=== PATIENT | male | born 1960 | race Caucasian/White ===

== ENCOUNTER 2018-02-03 11:35 | Inpatient (IN) | payer OTHER ==
[~2018-02-03] VITALS: Ht 167.6 cm; Wt 113.4 kg
[2018-02-03] VITALS (11 sets, daily range): BP systolic 121–167; BP diastolic 66–91
--- NOTE | 2018-02-03 11:56 | RAD ---
EXAM: CT Head without IV contrast CLINICAL HISTORY: LEFT SIDE WEAKNESS, FACIAL DROOP LAST NIGHT, SLURRED SPEECH TODAY. COMPARISON: None. TECHNIQUE: Routine CT of the head without contrast. Soft tissues and bone windows were reviewed. PQRS compliance statement - One or more of the following individualized dose reduction techniques were utilized for this study: 1. Automated exposure control 2. Adjustment of the mA and/or kV according to patient size 3. Use of iterative reconstruction technique FINDINGS: Intraparenchymal hemorrhage is seen within the right basal ganglia with mild associated edema. No definite mass effect or midline shift. Melvin-white differentiation is maintained with no evidence of edema. There is no mass effect or shift of the intracranial structures. The ventricles, basilar cisterns and cortical sulci are normal in size and configuration for the patients stated age. The cerebellum and brainstem are unremarkable. The calvarium demonstrates no evidence of fracture or focal lesion. There is normal aeration of the visualized paranasal sinuses and mastoid air cells. The visualized portions of the orbits are normal. Atherosclerotic calcifications of the intracranial internal carotid and vertebral arteries is seen. IMPRESSION: Intraparenchymal hemorrhage of the right basal ganglia with mild associated edema. Findings of intraparenchymal hemorrhage discussed with Dr. Rothman at 11:50 AM, 02/03/2018. Electronically signed by: Elmo To MD (02/03/2018 11:52 AM) [facility]
[2018-02-03] MEDS ORDERED: LABETALOL 20 MG/4 ML DISP.SYRIN. IVP ONE (12:15)
[2018-02-03 12:34] LABS: BASO # 0.1 x10^3/uL (0.0-0.2); BASO % 1 % (0-3); EOS # 0.1 x10^3/uL (0.0-0.7); EOS % 1 % (0-3); HEMOGLOBIN 14.2 g/dL (13.0-17.5); LYMPH # 1.9 x10^3/uL (1.0-4.8); LYMPH % 14 % (24-48); MEAN CORPUSCULAR HEMOGLOBIN 31 pg (25-35); MEAN CORPUSCULAR HGB CONC 35 g/dL (31-37); MEAN CORPUSCULAR VOLUME 88 fL (79-100); MONO # 1.1 x10^3/uL (0.0-1.1); MONO % 8 % (0-9); NEUT # 10.6 x10^3uL (1.8-7.7); NEUT % 77 % (31-73); PLATELET COUNT 303 x10^3/uL (140-400); RED BLOOD COUNT 4.67 x10^6/uL (4.30-5.70); RED CELL DISTRIBUTION WIDTH 14.3 % (11.5-14.5); WHITE BLOOD COUNT 13.8 x10^3/uL (4.0-11.0)
[2018-02-03 12:45] LABS: CALCIUM 10.4 mg/dL (8.5-10.1); CREATININE 1.6 mg/dL (0.7-1.3); GFR 44.9; POTASSIUM 3.9 mmol/L (3.5-5.1)
[2018-02-03 12:50] LABS: ALBUMIN 3.8 g/dL (3.4-5.0); ALBUMIN/GLOBULIN RATIO 0.9 (1.0-1.7); MAGNESIUM 1.8 mg/dL (1.8-2.4); PROTHROMBIN TIME PATIENT 13.4 SEC (11.7-14.0); TOTAL BILIRUBIN 0.6 mg/dL (0.2-1.0); TOTAL PROTEIN 8.1 g/dL (6.4-8.2)
--- NOTE | 2018-02-03 13:07 | PDOC1 ---
History and Physical Date of Admission Date of Admission DATE: 02/03/18 TIME: 13:06 Identification/Chief Complaint Chief Complaint ssen in er bed 3 57 year old male who presents with complaint of left-sided weakness and headache. Patient states that initially he had a mild headache last night and during the night he had fallen a couple of times because he was a bit off balance. this morning he was noticing that his speech was a little bit off but he still went into work. He states that while he was at work he took a nap for short period of time and when he awoke from nap coworkers noticed that he was significantly different with facial droop, slurred speech, was having weakness to his left arm. still complains of mild headache. He denies any chest pain or shortness of breath. 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 [employer] Rheumatologic: No pertinent hx Infectious disease: No pertinent hx ENT: No pertinent hx Endocrine: No pertinent hx Social History Smoke: No ALCOHOL: none Drugs: None Current Medications Current Medications Current Medications Labetalol HCl (Normodyne Iv Push) 20 mg 1X ONCE IVP Last administered on 02/03at 12:26; Start 02/03/18 at 12:15; Stop 02/03/18 at 12:16; Status DC Nicardipine HCl 50 mg/Sodium Chloride 270 ml @ 27 mls/hr CONT PRN IV SEE I/O RECORD Last administered on 02/03/18at 12:45; Start 02/03/18 at 12:30 Allergies Allergies: Coded Allergies: No Known Drug Allergies (Unverified , 02/03/18) ROS Review of System Review of Systems Review of Systems Constitutional: Denies fever or chills [] Eyes: Denies change in visual acuity, redness, or eye pain [] Respiratory: Denies cough or shortness of breath [] Cardiovascular: No additional information not addressed in HPI [] GI: Denies abdominal pain, nausea, vomiting or diarrhea [] Integument: Denies rash or skin lesions [] Neurologic: [place] of headache, slurred speech and left-sided weakness. Denies sensory changes [] 14 pt systems were reviewed and found to be within normal limits, except as documented HEENT: YES: [place] ALLERGY AND IMMUNOLOGY: No: Hives, Insect Bite Sensitivity, Itchy/Watery Eyes, Nasal Congestion, Post Nasal Drip, Seasonal Allergies, Other Hematological and Lymphatic: No: Bleeding Problems, Blood Clots, Blood Transfusions, Brusing, Night Sweats, Pallor, Swollen Lymph Nodes, Other Cardiovascular: No Chest Pain, No Palpitations, No Orthopnea, No Paroxysmal Noc. Dyspnea, No Edema, No Lt Headedness, No Other Physical Exam Physical Exam Physical Exam Physical Exam Constitutional: Well developed, well nourished, mild acute distress, non-toxic appearance. [] HENT: Normocephalic, atraumatic, bilateral external ears normal, oropharynx moist, no oral exudates, nose normal. [] Eyes: PERRLA, EOMI, conjunctiva normal, no discharge. [] Neck: Normal range of motion, no tenderness, supple, no stridor. [] Cardiovascular: Regular rate and rhythm [] Lungs & Thorax: Bilateral breath sounds clear to auscultation [] Abdomen: Bowel sounds normal, soft, no tenderness. [] Skin: Warm, dry, no erythema, no rash. [] Extremities: No tenderness, no cyanosis, no clubbing, ROM intact, no edema. [] Neurologic: Alert and oriented X 3. 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 Patient is able to maintain against gravity but no further. a left-sided pronator drift. Lower extremities demonstrate 5 out of 5 strength symmetrically. [] General: Alert, Oriented X3, Cooperative, mild distress HEENT: Atraumatic, PERRLA Lungs: Clear to auscultation Heart: S1S2 Breasts: Not examined Rectal Exam: not examined PELVIC: Examination not indicated Extremities: No clubbing, No cyanosis, No edema Skin: No breakdown Neuro: Normal speech Psych/Mental Status: Mental status NL, Mood NL Vitals Vitals Vital Signs Date Time Temp Pulse Resp B/P (MAP) Pulse Ox O2 Delivery O2 Flow Rate FiO2 02/03/18 12:26 80 237/115 02/03/18 11:58 98.4 20 98 Room Air 98.4 Labs Labs Laboratory Tests Test 02/03/18 11:49 02/03/18 11:54 Glucose (Fingerstick) 108 mg/dL (70-99) White Blood Count 13.8 x10^3/uL (4.0-11.0) Red Blood Count 4.67 x10^6/uL (4.30-5.70) Hemoglobin 14.2 g/dL (13.0-17.5) Hematocrit 41.0 % (39.0-53.0) Mean Corpuscular Volume 88 fL (79-100) Mean Corpuscular Hemoglobin 31 pg (25-35) Mean Corpuscular Hemoglobin Concent 35 g/dL (31-37) Red Cell Distribution Width 14.3 % (11.5-14.5) Platelet Count 303 x10^3/uL (140-400) Neutrophils (%) (Auto) 77 % (31-73) Lymphocytes (%) (Auto) 14 % (24-48) Monocytes (%) (Auto) 8 % (0-9) Eosinophils (%) (Auto) 1 % (0-3) Basophils (%) (Auto) 1 % (0-3) Neutrophils # (Auto) 10.6 x10^3uL (1.8-7.7) Lymphocytes # (Auto) 1.9 x10^3/uL (1.0-4.8) Monocytes # (Auto) 1.1 x10^3/uL (0.0-1.1) Eosinophils # (Auto) 0.1 x10^3/uL (0.0-0.7) Basophils # (Auto) 0.1 x10^3/uL (0.0-0.2) Prothrombin Time 13.4 SEC (11.7-14.0) Prothromb Time International Ratio 1.1 (0.8-1.1) Activated Partial Thromboplast Time 29 SEC (24-38) Sodium Level 141 mmol/L (136-145) Potassium Level 3.9 mmol/L (3.5-5.1) Chloride Level 105 mmol/L (98-107) Carbon Dioxide Level 25 mmol/L (21-32) Anion Gap 11 (6-14) Blood Urea Nitrogen 16 mg/dL (8-26) Creatinine 1.6 mg/dL (0.7-1.3) Estimated GFR (Cockcroft-Gault) 44.9 BUN/Creatinine Ratio 10 (6-20) Glucose Level 118 mg/dL (70-99) Calcium Level 10.4 mg/dL (8.5-10.1) Magnesium Level 1.8 mg/dL (1.8-2.4) Total Bilirubin 0.6 mg/dL (0.2-1.0) Aspartate Amino Transf (AST/SGOT) 49 U/L (15-37) Alanine Aminotransferase (ALT/SGPT) 87 U/L (16-63) Alkaline Phosphatase 63 U/L (46-116) Troponin I Quantitative 0.018 ng/mL (0.000-0.055) Total Protein 8.1 g/dL (6.4-8.2) Albumin 3.8 g/dL (3.4-5.0) Albumin/Globulin Ratio 0.9 (1.0-1.7) Thyroid Stimulating Hormone (TSH) 15.636 uIU/mL (0.358-3.74) Ethyl Alcohol Level < 10 mg/dL (0-10) Laboratory Tests Test 02/03/18 11:49 02/03/18 11:54 Glucose (Fingerstick) 108 mg/dL (70-99) White Blood Count 13.8 x10^3/uL (4.0-11.0) Red Blood Count 4.67 x10^6/uL (4.30-5.70) Hemoglobin 14.2 g/dL (13.0-17.5) Hematocrit 41.0 % (39.0-53.0) Mean Corpuscular Volume 88 fL (79-100) Mean Corpuscular Hemoglobin 31 pg (25-35) Mean Corpuscular Hemoglobin Concent 35 g/dL (31-37) Red Cell Distribution Width 14.3 % (11.5-14.5) Platelet Count 303 x10^3/uL (140-400) Neutrophils (%) (Auto) 77 % (31-73) Lymphocytes (%) (Auto) 14 % (24-48) Monocytes (%) (Auto) 8 % (0-9) Eosinophils (%) (Auto) 1 % (0-3) Basophils (%) (Auto) 1 % (0-3) Neutrophils # (Auto) 10.6 x10^3uL (1.8-7.7) Lymphocytes # (Auto) 1.9 x10^3/uL (1.0-4.8) Monocytes # (Auto) 1.1 x10^3/uL (0.0-1.1) Eosinophils # (Auto) 0.1 x10^3/uL (0.0-0.7) Basophils # (Auto) 0.1 x10^3/uL (0.0-0.2) Prothrombin Time 13.4 SEC (11.7-14.0) Prothromb Time International Ratio 1.1 (0.8-1.1) Activated Partial Thromboplast Time 29 SEC (24-38) Sodium Level 141 mmol/L (136-145) Potassium Level 3.9 mmol/L (3.5-5.1) Chloride Level 105 mmol/L (98-107) Carbon Dioxide Level 25 mmol/L (21-32) Anion Gap 11 (6-14) Blood Urea Nitrogen 16 mg/dL (8-26) Creatinine 1.6 mg/dL (0.7-1.3) Estimated GFR (Cockcroft-Gault) 44.9 BUN/Creatinine Ratio 10 (6-20) Glucose Level 118 mg/dL (70-99) Calcium Level 10.4 mg/dL (8.5-10.1) Magnesium Level 1.8 mg/dL (1.8-2.4) Total Bilirubin 0.6 mg/dL (0.2-1.0) Aspartate Amino Transf (AST/SGOT) 49 U/L (15-37) Alanine Aminotransferase (ALT/SGPT) 87 U/L (16-63) Alkaline Phosphatase 63 U/L (46-116) Troponin I Quantitative 0.018 ng/mL (0.000-0.055) Total Protein 8.1 g/dL (6.4-8.2) Albumin 3.8 g/dL (3.4-5.0) Albumin/Globulin Ratio 0.9 (1.0-1.7) Thyroid Stimulating Hormone (TSH) 15.636 uIU/mL (0.358-3.74) Ethyl Alcohol Level < 10 mg/dL (0-10) Images Images COMPARISON: None. TECHNIQUE: Routine CT of the head without contrast. Soft tissues and bone windows were reviewed. PQRS compliance statement - One or more of the following individualized dose reduction techniques were utilized for this study: 1. Automated exposure control 2. Adjustment of the mA and/or kV according to patient size 3. Use of iterative reconstruction technique FINDINGS: Intraparenchymal hemorrhage is seen within the right basal ganglia with mild associated edema. No definite mass effect or midline shift. Melvin-white differentiation is maintained with no evidence of edema. There is no mass effect or shift of the intracranial structures. The ventricles, basilar cisterns and cortical sulci are normal in size and configuration for the patients stated age. The cerebellum and brainstem are unremarkable. The calvarium demonstrates no evidence of fracture or focal lesion. There is normal aeration of the visualized paranasal sinuses and mastoid air cells. The visualized portions of the orbits are normal. Atherosclerotic calcifications of the intracranial internal carotid and vertebral arteries is seen. IMPRESSION: Intraparenchymal hemorrhage of the right basal ganglia with mild associated edema. Findings of intraparenchymal hemorrhage discussed with Dr. Rothman at 11:50 AM, 02/03/2018. Electronically signed by: Elmo To MD (02/03/2018 11:52 AM) [facility] VTE Prophylaxis Ordered VTE Prophylaxis Devices: Yes VTE Pharmacological Prophylaxi: Contraindicated Assessment/Plan Assessment/Plan impression Intraparenchymal hemorrhage of the right basal ganglia with mild associated edema. hypertensive crisis headache morbid obesity possible JOSE plan admit icu bed neurosurgery consult neurology consult neurochecks q 2 hrs npo iv fluid support bp control PULM CONSULT RE JOSE 36 min cc time HECTOR MURDOCK MD Feb 03, 2018 13:07
--- NOTE | 2018-02-03 13:11 | PHYS DOC ---
Past Medical History Past Medical History: No Pertinent History Past Surgical History: No Surgical History Alcohol Use: None Drug Use: None Adult General Chief Complaint Chief Complaint: SLURRED SPEECH HPI HPI Patient is a 57 year old male who presents with complaint of left-sided weakness and headache. Patient states that initially he had a mild headache last night and during the night he had fallen a couple of times because he was a bit off balance. He states that this morning he was noticing that his speech was a little bit off but he still went into work. He states that while he was at work he took a nap for short period of time and when he awoke from nap coworkers noticed that he was significantly different with facial droop, slurred speech and he was having weakness to his left arm. Patient still complains of mild headache. He denies any chest pain or shortness of breath. He denies any nausea or vomiting. Review of Systems Review of Systems Constitutional: Denies fever or chills [] Eyes: Denies change in visual acuity, redness, or eye pain [] Respiratory: Denies cough or shortness of breath [] Cardiovascular: No additional information not addressed in HPI [] GI: Denies abdominal pain, nausea, vomiting or diarrhea [] Integument: Denies rash or skin lesions [] Neurologic: [place] of headache, slurred speech and left-sided weakness. Denies sensory changes [] All other systems were reviewed and found to be within normal limits, except as documented in this note. Current Medications Current Medications Current Medications Medications (Trade) Dose Ordered Sig/Teresa Start Time Stop Time Status Last Admin Dose Admin Labetalol HCl (Normodyne Iv Push) 20 mg 1X ONCE 02/03/18 12:15 02/03/18 12:16 DC 02/03/18 12:26 20 MG Nicardipine HCl 50 mg/Sodium Chloride 270 ml @ 27 mls/hr CONT PRN 02/03/18 12:30 02/03/18 12:45 27 MLS/HR Allergies Allergies Allergies Coded Allergies Type Severity Reaction Last Updated Verified No Known Drug Allergies 02/03/18 No Physical Exam Physical Exam Constitutional: Well developed, well nourished, no acute distress, non-toxic appearance. [] HENT: Normocephalic, atraumatic, bilateral external ears normal, oropharynx moist, no oral exudates, nose normal. [] Eyes: PERRLA, EOMI, conjunctiva normal, no discharge. [] Neck: Normal range of motion, no tenderness, supple, no stridor. [] Cardiovascular: Regular rate and rhythm [] Lungs & Thorax: Bilateral breath sounds clear to auscultation [] Abdomen: Bowel sounds normal, soft, no tenderness. [] Skin: Warm, dry, no erythema, no rash. [] Extremities: No tenderness, no cyanosis, no clubbing, ROM intact, no edema. [] Neurologic: Alert and oriented X 3. Cranial nerves II through XII are grossly intact with exception of cranial nerve VII deficit with left-sided facial droop and sparing for head. 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 Patient is able to maintain against gravity but no further. There is a left-sided pronator drift. Lower extremities demonstrate 5 out of 5 strength symmetrically. [] Current Patient Data Vital Signs Vital Signs Date Time Temp Pulse Resp B/P (MAP) Pulse Ox O2 Delivery O2 Flow Rate FiO2 02/03/18 12:26 80 237/115 02/03/18 11:58 98.4 20 98 Room Air 98.4 Lab Values Laboratory Tests Test 02/03/18 11:49 02/03/18 11:54 Glucose (Fingerstick) 108 mg/dL (70-99) H White Blood Count 13.8 x10^3/uL (4.0-11.0) H Red Blood Count 4.67 x10^6/uL (4.30-5.70) Hemoglobin 14.2 g/dL (13.0-17.5) Hematocrit 41.0 % (39.0-53.0) Mean Corpuscular Volume 88 fL (79-100) Mean Corpuscular Hemoglobin 31 pg (25-35) Mean Corpuscular Hemoglobin Concent 35 g/dL (31-37) Red Cell Distribution Width 14.3 % (11.5-14.5) Platelet Count 303 x10^3/uL (140-400) Neutrophils (%) (Auto) 77 % (31-73) H Lymphocytes (%) (Auto) 14 % (24-48) L Monocytes (%) (Auto) 8 % (0-9) Eosinophils (%) (Auto) 1 % (0-3) Basophils (%) (Auto) 1 % (0-3) Neutrophils # (Auto) 10.6 x10^3uL (1.8-7.7) H Lymphocytes # (Auto) 1.9 x10^3/uL (1.0-4.8) Monocytes # (Auto) 1.1 x10^3/uL (0.0-1.1) Eosinophils # (Auto) 0.1 x10^3/uL (0.0-0.7) Basophils # (Auto) 0.1 x10^3/uL (0.0-0.2) Prothrombin Time 13.4 SEC (11.7-14.0) Prothrombin Time INR 1.1 (0.8-1.1) PTT 29 SEC (24-38) Sodium Level 141 mmol/L (136-145) Potassium Level 3.9 mmol/L (3.5-5.1) Chloride Level 105 mmol/L (98-107) Carbon Dioxide Level 25 mmol/L (21-32) Anion Gap 11 (6-14) Blood Urea Nitrogen 16 mg/dL (8-26) Creatinine 1.6 mg/dL (0.7-1.3) H Estimated GFR (Cockcroft-Gault) 44.9 BUN/Creatinine Ratio 10 (6-20) Glucose Level 118 mg/dL (70-99) H Calcium Level 10.4 mg/dL (8.5-10.1) H Magnesium Level 1.8 mg/dL (1.8-2.4) Total Bilirubin 0.6 mg/dL (0.2-1.0) Aspartate Amino Transferase (AST) 49 U/L (15-37) H Alanine Aminotransferase (ALT) 87 U/L (16-63) H Alkaline Phosphatase 63 U/L (46-116) Troponin I Quantitative 0.018 ng/mL (0.000-0.055) Total Protein 8.1 g/dL (6.4-8.2) Albumin 3.8 g/dL (3.4-5.0) Albumin/Globulin Ratio 0.9 (1.0-1.7) L Ethyl Alcohol Level < 10 mg/dL (0-10) Laboratory Tests 02/03/18 11:54 Laboratory Tests 02/03/18 11:54 EKG EKG [] Radiology/Procedures Radiology/Procedures [] Impressions: EXAM: CT Head without IV contrast CLINICAL HISTORY: LEFT SIDE WEAKNESS, FACIAL DROOP LAST NIGHT, SLURRED SPEECH TODAY. COMPARISON: None. TECHNIQUE: Routine CT of the head without contrast. Soft tissues and bone windows were reviewed. PQRS compliance statement - One or more of the following individualized dose reduction techniques were utilized for this study: 1. Automated exposure control 2. Adjustment of the mA and/or kV according to patient size 3. Use of iterative reconstruction technique FINDINGS: Intraparenchymal hemorrhage is seen within the right basal ganglia with mild associated edema. No definite mass effect or midline shift. Melvin-white differentiation is maintained with no evidence of edema. There is no mass effect or shift of the intracranial structures. The ventricles, basilar cisterns and cortical sulci are normal in size and configuration for the patients stated age. The cerebellum and brainstem are unremarkable. The calvarium demonstrates no evidence of fracture or focal lesion. There is normal aeration of the visualized paranasal sinuses and mastoid air cells. The visualized portions of the orbits are normal. Atherosclerotic calcifications of the intracranial internal carotid and vertebral arteries is seen. IMPRESSION: Intraparenchymal hemorrhage of the right basal ganglia with mild associated edema. Findings of intraparenchymal hemorrhage discussed with Dr. Rothman at 11:50 AM, 02/03/2018. Electronically signed by: Elmo To MD (02/03/2018 11:52 AM) [facility] Course & Med Decision Making Course & Med Decision Making Pertinent Labs and Imaging studies reviewed. (See chart for details) Upon arrival, patient was sent down for CT imaging and CT returned with findings of intraparenchymal hemorrhage. IV was established and blood work drawn. Patient given a bolus dose of labetalol 20 mg and then started on nicardipine drip. Patient's case was discussed with neurosurgery who agrees with nicardipine drip and recommends placement in ICU. Patient's case was further discussed with Dr. Helm, on for hospitalist services and patient admitted under his care. Earl Disclaimer Dragon Disclaimer This electronic medical record was generated, in whole or in part, using a voice recognition dictation system. Departure Departure Impression: Primary Impression: Intraparenchymal hemorrhage of brain Additional Impression: Hypertensive emergency Disposition: 09 ADMITTED INPATIENT Admitting Physician: Ozzy Lopez Condition: GUARDED Problem Qualifiers GERARDO ROTHMAN Jr. DO Feb 03, 2018 13:11
[2018-02-03] MEDS ORDERED: fentaNYL PF VIAL 100 MCG/2 ML VIAL IV PRN (13:15)
[2018-02-03] MEDS ORDERED: ONDANSETRON PF 4 MG/2 ML VIAL. IV PRN (13:15)
--- NOTE | 2018-02-03 13:48 | EKG ---
[facility] [address] [place] [address] Test Date: 2018-02-03 Test Time: 11:53:17 Pat Name: JOAO GODFREY Department: Room: 113 1 Gender: M Supervisor Histology: : 1960 Requested By: GERARDO LAWLER Order Number: [id number] Reading MD: Irvin Berry Measurements Intervals Simpson Rate: 82 P: 0 RI: 136 QRS: -43 QRSD: 94 T: 121 QT: 378 QTc: 445 Interpretive Statements SINUS RHYTHM ABNORMAL LEFT AXIS DEVIATION LEFT ANTERIOR FASCICULAR BLOCK LVH WITH REPOLARIZATION ABNORMALITY ABNORMAL ECG RI6.01 No previous ECG available for comparison Electronically Signed On 02-04-2018 8:45:55 EQUIPMENT ASSOCIATE by Irvin Berry
[2018-02-03 17:08] LABS: BILIRUBIN,URINE NEGATIVE (NEG); COLOR,URINE YELLOW; NITRITE,URINE NEGATIVE (NEG); PH,URINE 5.5; PROTEIN,URINE NEGATIVE (NEG-TRACE); UROBILINOGEN,URINE 0.2 mg/dL (0.2 mg/dL)
[2018-02-03 17:14] LABS: BACTERIA,URINE 0 /HPF (0-FEW); CLARITY,URINE HAZY; SQUAMOUS EPITHELIAL CELL,UR FEW /LPF
[2018-02-03 17:15] LABS: BARBITURATES NEG (NEG); BENZODIAZEPINES NEG (NEG); CANNABINOIDS NEG (NEG); COCAINE NEG (NEG); METHADONE NEG (NEG); OPIATES NEG (NEG); PHENCYCLIDINE NEG (NEG); RBC,URINE OCC /HPF (0-2)
[2018-02-03 17:19] LABS: AMPHETAMINE/METHAMPHETAMINE NEG (NEG)
--- NOTE | 2018-02-03 17:25 | PDOC ---
Provider Note Provider Note patient seen and examined in ICU Fell overnight, slurred speech, hypertension on exam slurred speech, facial droop, left upper extremity weakness BP controlled on Cardene Keep in ICU repeat CT head in AM SCDs neurology following DEBORAH TERRY MD Feb 03, 2018 17:25
[2018-02-03] MEDS: METOPROLOL SUCC 24HR ER 25 MG TAB.ER.24H. PO SCH (22:30)
--- NOTE | 2018-02-03 23:57 | CONS ---
DATE OF CONSULTATION: 02/03/2018 REASON FOR CONSULTATION: Slurred speech and left-sided weakness. HISTORY OF PRESENT ILLNESS: The patient is a pleasant 57-year-old man who reported a history of hypertension. He relates that he developed acutely left-sided weakness and headache. He said that last night, he noted a mild headache and then, he fell a couple of times because of lack of balance. In the morning, he said that he noticed his speech was slurred and then went to work. While at work, he said he slept for a short period and said when he awoke from his nap, his coworkers noticed that he was significantly different with a facial droop, slurred speech and weakness in the left side. He was admitted, studied and placed in Intensive Care Unit. In speaking with him there, he said that he has noticed some slight improvement in his left upper extremity strength, but continues to notice problems with his speech. He relates that he continues to have mild headache. PAST MEDICAL HISTORY: No pertinent history. PAST SURGICAL HISTORY: Negative. ALLERGIES: No allergies to medications. PERSONAL HISTORY: Does not use alcohol or drugs. REVIEW OF SYSTEMS: A 12-point review of systems was reviewed and was negative other than outlined above. PHYSICAL EXAMINATION: GENERAL: At this time, he is pleasant, supine in bed, is concerned by history neurologic issues. NEUROLOGIC: Cranial nerve testing, his pupils are equal and reactive with conjugate gaze. On facial motor testing, there is a left facial droop. Facial sensory examination was unremarkable. Lower cranial nerves were intact. Motor testing, his strength was 5/5 in his right upper and right lower extremities. On the left side, left upper extremity strength was 3/5 and lower extremity strength was 5/5. EXTREMITIES: There was full range of motion of upper and lower extremities bilaterally. LABORATORY DATA: I reviewed a CT scan of the head. On that study, there is a right basal ganglia region intraparenchymal hemorrhage. IMPRESSION: Intraparenchymal hemorrhage in the right basal ganglia region. RECOMMENDATIONS: The patient should have his blood pressure well controlled, remain in Intensive Care Unit for observation. A repeat scan to be done in the morning. I did discuss this with the patient and staff. I appreciate asking us to see her. DEBORAH TERRY MD DR: FREEDOM/evy JOB#: [id number] / [id number]
[2018-02-04] VITALS (27 sets, daily range): BP systolic 120–185; BP diastolic 67–117
[2018-02-04 04:49] LABS: BASO # 0.1 x10^3/uL (0.0-0.2); BASO % 1 % (0-3); EOS # 0.3 x10^3/uL (0.0-0.7); EOS % 3 % (0-3); HEMOGLOBIN 13.7 g/dL (13.0-17.5); LYMPH # 2.8 x10^3/uL (1.0-4.8); LYMPH % 24 % (24-48); MEAN CORPUSCULAR HEMOGLOBIN 30 pg (25-35); MEAN CORPUSCULAR HGB CONC 33 g/dL (31-37); MEAN CORPUSCULAR VOLUME 89 fL (79-100); MONO # 1.2 x10^3/uL (0.0-1.1); MONO % 10 % (0-9); NEUT # 7.4 x10^3uL (1.8-7.7); NEUT % 63 % (31-73); PLATELET COUNT 305 x10^3/uL (140-400); RED BLOOD COUNT 4.63 x10^6/uL (4.30-5.70); RED CELL DISTRIBUTION WIDTH 14.6 % (11.5-14.5); WHITE BLOOD COUNT 11.9 x10^3/uL (4.0-11.0)
[2018-02-04 05:10] LABS: ALBUMIN 3.8 g/dL (3.4-5.0); ALBUMIN/GLOBULIN RATIO 0.9 (1.0-1.7); CALCIUM 9.6 mg/dL (8.5-10.1); GFR 34.7; POTASSIUM 4.2 mmol/L (3.5-5.1); TOTAL BILIRUBIN 0.8 mg/dL (0.2-1.0)
[2018-02-04 05:13] LABS: CHOLESTEROL/HDL RATIO 5.5
[2018-02-04] MEDS: METOPROLOL SUCC 24HR ER 25 MG TAB.ER.24H. PO SCH ×2 (09:00→10:09)
--- NOTE | 2018-02-04 10:45 | PDOC2 ---
CARDIAC CONSULT DATE OF CONSULT Date of Consult DATE: 02/04/18 TIME: 10:38 REASON FOR CONSULT Reason for Consult: Severe Hypertension REFERRING PHYSICIAN Referring Physician: Dr. Lopez SOURCE Source: Chart review, Patient HISTORY OF PRESENT ILLNESS HISTORY OF PRESENT ILLNESS This is a 57 yo male who presented with left-sided headache, weakness, and slurred speech. Head CT notable for right basal ganglia intraparenchymal hemorrhage. BP noted to be significantly elevated, which prompted this consult. Patient resides in [facility]. 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 Began having altered balance a couple of days ago. Had actually fallen off some scaffolding at work and then again at home. Hit his head on the wall at home. Began having severe ELISE at that time. Went to work yesterday, co-workers noticed that he was off-balance, had facial droop, and slurred speech. He then came to the ED for further evaluation and treatment. Does report a history of HTN and HLP. Was previously on medication about 15 years ago, but has not taken anything since. He denies any chest pain, palpitations, dizziness, diaphoresis, or nausea/vomiting. Continues to have left -sided weakness, facial droop, and slurred speech. PAST MEDICAL HISTORY Cardiovascular: Hyperlipidemia Pulmonary: No pertinent hx CENTRAL NERVOUS SYSTEM: Other (no pertinent hx) GI: No pertinent hx Heme/Onc: No pertinent hx Hepatobiliary: No pertinent hx Psych: No pertinent hx Musculoskeletal: Other (no pertinent hx) Rheumatologic: Gout Infectious disease: No pertinent hx ENT: No pertinent hx Renal/: No pertinent hx Endocrine: No pertinent hx Dermatology: No pertinent hx PAST SURGICAL HISTORY Past Surgical History: No pertinent history FAMILY HISTORY Family History: Hypertension SOCIAL HISTORY Smoke: No ALCOHOL: none Drugs: None Lives: Alone CURRENT MEDICATIONS CURRENT MEDICATIONS Current Medications Medications (Trade) Dose Ordered Sig/Teresa Route PRN Reason Start Time Stop Time Status Last Admin Dose Admin Labetalol HCl (Normodyne Iv Push) 20 mg 1X ONCE IVP 02/03/18 12:15 02/03/18 12:16 DC 02/03/18 12:26 Nicardipine HCl 50 mg/Sodium Chloride 270 ml @ 27 mls/hr CONT PRN IV SEE I/O RECORD 02/03/18 12:30 02/03/18 22:04 Metoprolol Succinate (Toprol Xl) 25 mg DAILY PO 12/18/18 22:30 02/04/18 10:09 ALLERGIES ALLERGIES: Coded Allergies: No Known Drug Allergies (Unverified , 02/03/18) ROS Review of System 14 point ROS conducted with pertinent positives noted above in HPI. PHYSICAL EXAM General: Alert, Oriented X3, Cooperative, No acute distress HEENT: Atraumatic, Mucous membr. moist/pink Lungs: Clear to auscultation, Normal air movement Heart: Regular rate, Normal S1, Normal S2 Abdomen: Soft, Other (obese ) Extremities: No edema, Normal pulses Skin: No breakdown, No significant lesion Neuro: Sensation intact, Other (slurred speech, left-sided weakness) Psych/Mental Status: Mental status NL, Other (tearful) MUSCULOSKELETAL: No deformity VITALS VITALS Vital Signs Date Time Temp Pulse Resp B/P (MAP) Pulse Ox O2 Delivery O2 Flow Rate FiO2 02/04/18 10:09 90 136/89 02/04/18 10:00 17 97 Nasal Cannula 2.0 02/04/18 08:00 98.2 98.2 LABS Lab: Laboratory Tests Test 02/03/18 11:49 02/03/18 11:54 02/03/18 17:00 02/04/18 04:30 Glucose (Fingerstick) 108 mg/dL (70-99) White Blood Count 13.8 x10^3/uL (4.0-11.0) 11.9 x10^3/uL (4.0-11.0) Red Blood Count 4.67 x10^6/uL (4.30-5.70) 4.63 x10^6/uL (4.30-5.70) Hemoglobin 14.2 g/dL (13.0-17.5) 13.7 g/dL (13.0-17.5) Hematocrit 41.0 % (39.0-53.0) 41.0 % (39.0-53.0) Mean Corpuscular Volume 88 fL (79-100) 89 fL (79-100) Mean Corpuscular Hemoglobin 31 pg (25-35) 30 pg (25-35) Mean Corpuscular Hemoglobin Concent 35 g/dL (31-37) 33 g/dL (31-37) Red Cell Distribution Width 14.3 % (11.5-14.5) 14.6 % (11.5-14.5) Platelet Count 303 x10^3/uL (140-400) 305 x10^3/uL (140-400) Neutrophils (%) (Auto) 77 % (31-73) 63 % (31-73) Lymphocytes (%) (Auto) 14 % (24-48) 24 % (24-48) Monocytes (%) (Auto) 8 % (0-9) 10 % (0-9) Eosinophils (%) (Auto) 1 % (0-3) 3 % (0-3) Basophils (%) (Auto) 1 % (0-3) 1 % (0-3) Neutrophils # (Auto) 10.6 x10^3uL (1.8-7.7) 7.4 x10^3uL (1.8-7.7) Lymphocytes # (Auto) 1.9 x10^3/uL (1.0-4.8) 2.8 x10^3/uL (1.0-4.8) Monocytes # (Auto) 1.1 x10^3/uL (0.0-1.1) 1.2 x10^3/uL (0.0-1.1) Eosinophils # (Auto) 0.1 x10^3/uL (0.0-0.7) 0.3 x10^3/uL (0.0-0.7) Basophils # (Auto) 0.1 x10^3/uL (0.0-0.2) 0.1 x10^3/uL (0.0-0.2) Prothrombin Time 13.4 SEC (11.7-14.0) Prothromb Time International Ratio 1.1 (0.8-1.1) Activated Partial Thromboplast Time 29 SEC (24-38) Sodium Level 141 mmol/L (136-145) 141 mmol/L (136-145) Potassium Level 3.9 mmol/L (3.5-5.1) 4.2 mmol/L (3.5-5.1) Chloride Level 105 mmol/L (98-107) 105 mmol/L (98-107) Carbon Dioxide Level 25 mmol/L (21-32) 26 mmol/L (21-32) Anion Gap 11 (6-14) 10 (6-14) Blood Urea Nitrogen 16 mg/dL (8-26) 20 mg/dL (8-26) Creatinine 1.6 mg/dL (0.7-1.3) 2.0 mg/dL (0.7-1.3) Estimated GFR (Cockcroft-Gault) 44.9 34.7 BUN/Creatinine Ratio 10 (6-20) 10 (6-20) Glucose Level 118 mg/dL (70-99) 122 mg/dL (70-99) Calcium Level 10.4 mg/dL (8.5-10.1) 9.6 mg/dL (8.5-10.1) Magnesium Level 1.8 mg/dL (1.8-2.4) Total Bilirubin 0.6 mg/dL (0.2-1.0) 0.8 mg/dL (0.2-1.0) Aspartate Amino Transf (AST/SGOT) 49 U/L (15-37) 57 U/L (15-37) Alanine Aminotransferase (ALT/SGPT) 87 U/L (16-63) 89 U/L (16-63) Alkaline Phosphatase 63 U/L (46-116) 62 U/L (46-116) Troponin I Quantitative 0.018 ng/mL (0.000-0.055) Total Protein 8.1 g/dL (6.4-8.2) 8.0 g/dL (6.4-8.2) Albumin 3.8 g/dL (3.4-5.0) 3.8 g/dL (3.4-5.0) Albumin/Globulin Ratio 0.9 (1.0-1.7) 0.9 (1.0-1.7) Thyroid Stimulating Hormone (TSH) 15.636 uIU/mL (0.358-3.74) Ethyl Alcohol Level < 10 mg/dL (0-10) Urine Collection Type Unknown Urine Color Yellow Urine Clarity Hazy Urine pH 5.5 Urine Specific [place] 1.020 Urine Protein Negative mg/dL (NEG-TRACE) Urine Glucose (UA) Negative mg/dL (NEG) Urine Ketones (Stick) Negative mg/dL (NEG) Urine Blood Negative (NEG) Urine Nitrite Negative (NEG) Urine Bilirubin Negative (NEG) Urine Urobilinogen Dipstick 0.2 mg/dL (0.2 mg/dL) Urine Leukocyte Esterase Negative (NEG) Urine RBC Occ /HPF (0-2) Urine WBC 1-4 /HPF (0-4) Urine Squamous Epithelial Cells Few /LPF Urine Bacteria 0 /HPF (0-FEW) Urine Mucus Mod /LPF Urine Opiates Screen Neg (NEG) Urine Methadone Screen Neg (NEG) Urine Barbiturates Neg (NEG) Urine Phencyclidine Screen Neg (NEG) Urine Amphetamine/Methamphetamine Neg (NEG) Urine Benzodiazepines Screen Neg (NEG) Urine Cocaine Screen Neg (NEG) Urine Cannabinoids Screen Neg (NEG) Urine Ethyl Alcohol Neg (NEG) Triglycerides Level 135 mg/dL (0-150) Cholesterol Level 177 mg/dL (0-200) LDL Cholesterol, Calculated 118 mg/dL (0-100) VLDL Cholesterol, Calculated 27 mg/dL (0-40) Non-HDL Cholesterol Calculated 145 mg/dL (0-129) HDL Cholesterol 32 mg/dL (40-60) Cholesterol/HDL Ratio 5.5 ASSESSMENT/PLAN ASSESSMENT/PLAN 1. Malignant hypertension; better controlled but remains slightly elevated 2. Right basal ganglia intraparenchymal hemorrhage; follow-up CT pending 3. YOVANA on ? CKD. Cr increased from 1.6 to 2.0 4. Hyperlipidemia: LDL 118 5. Hypothyroidism; treatment as per PCP Recommendations Add Norvasc. No DERREK/ARB with YOVANA BP parameters as per neuro sx No ASA or blood thinners Statin when LFTs normalize PT/OT Consult social work therapist [facility] JOHN SILVESTRE APRN Feb 04, 2018 10:45
[2018-02-04 11:39] LABS: BARBITURATES NEG (NEG); BENZODIAZEPINES NEG (NEG); CANNABINOIDS NEG (NEG); COCAINE NEG (NEG); METHADONE NEG (NEG); OPIATES NEG (NEG); PHENCYCLIDINE NEG (NEG)
[2018-02-04 11:42] LABS: AMPHETAMINE/METHAMPHETAMINE NEG (NEG)
[2018-02-04 12:04] LABS: FREE T4 0.66 ng/dL (0.76-1.46)
--- NOTE | 2018-02-04 13:41 | PDOC ---
PROGRESS NOTES Chief Complaint Chief Complaint Intraparenchymal hemorrhage of the right basal ganglia with mild associated edema. hypertensive crisis headache morbid obesity possible JOSE History of Present Illness History of Present Illness pt. seen and examined Talked with nursing Vitals Vitals Vital Signs Date Time Temp Pulse Resp B/P (MAP) Pulse Ox O2 Delivery O2 Flow Rate FiO2 02/04/18 12:45 82 17 164/79 (107) 98 Nasal Cannula 2.0 02/04/18 08:00 98.2 98.2 Physical Exam General: Alert, Oriented X3, Cooperative, mild distress Heart: Other (tachycardia) Lungs: Clear Abdomen: Normal bowel sounds Extremities: No clubbing, No cyanosis, No edema Skin: No breakdown Labs LABS Laboratory Tests Test 02/03/18 17:00 02/04/18 04:30 02/04/18 09:45 Urine Collection Type Unknown Urine Color Yellow Urine Clarity Hazy Urine pH 5.5 Urine Specific [place] 1.020 Urine Protein Negative mg/dL (NEG-TRACE) Urine Glucose (UA) Negative mg/dL (NEG) Urine Ketones (Stick) Negative mg/dL (NEG) Urine Blood Negative (NEG) Urine Nitrite Negative (NEG) Urine Bilirubin Negative (NEG) Urine Urobilinogen Dipstick 0.2 mg/dL (0.2 mg/dL) Urine Leukocyte Esterase Negative (NEG) Urine RBC Occ /HPF (0-2) Urine WBC 1-4 /HPF (0-4) Urine Squamous Epithelial Cells Few /LPF Urine Bacteria 0 /HPF (0-FEW) Urine Mucus Mod /LPF Urine Opiates Screen Neg (NEG) Neg (NEG) Urine Methadone Screen Neg (NEG) Neg (NEG) Urine Barbiturates Neg (NEG) Neg (NEG) Urine Phencyclidine Screen Neg (NEG) Neg (NEG) Urine Amphetamine/Methamphetamine Neg (NEG) Neg (NEG) Urine Benzodiazepines Screen Neg (NEG) Neg (NEG) Urine Cocaine Screen Neg (NEG) Neg (NEG) Urine Cannabinoids Screen Neg (NEG) Neg (NEG) Urine Ethyl Alcohol Neg (NEG) Neg (NEG) White Blood Count 11.9 x10^3/uL (4.0-11.0) Red Blood Count 4.63 x10^6/uL (4.30-5.70) Hemoglobin 13.7 g/dL (13.0-17.5) Hematocrit 41.0 % (39.0-53.0) Mean Corpuscular Volume 89 fL (79-100) Mean Corpuscular Hemoglobin 30 pg (25-35) Mean Corpuscular Hemoglobin Concent 33 g/dL (31-37) Red Cell Distribution Width 14.6 % (11.5-14.5) Platelet Count 305 x10^3/uL (140-400) Neutrophils (%) (Auto) 63 % (31-73) Lymphocytes (%) (Auto) 24 % (24-48) Monocytes (%) (Auto) 10 % (0-9) Eosinophils (%) (Auto) 3 % (0-3) Basophils (%) (Auto) 1 % (0-3) Neutrophils # (Auto) 7.4 x10^3uL (1.8-7.7) Lymphocytes # (Auto) 2.8 x10^3/uL (1.0-4.8) Monocytes # (Auto) 1.2 x10^3/uL (0.0-1.1) Eosinophils # (Auto) 0.3 x10^3/uL (0.0-0.7) Basophils # (Auto) 0.1 x10^3/uL (0.0-0.2) Sodium Level 141 mmol/L (136-145) Potassium Level 4.2 mmol/L (3.5-5.1) Chloride Level 105 mmol/L (98-107) Carbon Dioxide Level 26 mmol/L (21-32) Anion Gap 10 (6-14) Blood Urea Nitrogen 20 mg/dL (8-26) Creatinine 2.0 mg/dL (0.7-1.3) Estimated GFR (Cockcroft-Gault) 34.7 BUN/Creatinine Ratio 10 (6-20) Glucose Level 122 mg/dL (70-99) Calcium Level 9.6 mg/dL (8.5-10.1) Total Bilirubin 0.8 mg/dL (0.2-1.0) Aspartate Amino Transf (AST/SGOT) 57 U/L (15-37) Alanine Aminotransferase (ALT/SGPT) 89 U/L (16-63) Alkaline Phosphatase 62 U/L (46-116) Total Protein 8.0 g/dL (6.4-8.2) Albumin 3.8 g/dL (3.4-5.0) Albumin/Globulin Ratio 0.9 (1.0-1.7) Triglycerides Level 135 mg/dL (0-150) Cholesterol Level 177 mg/dL (0-200) LDL Cholesterol, Calculated 118 mg/dL (0-100) VLDL Cholesterol, Calculated 27 mg/dL (0-40) Non-HDL Cholesterol Calculated 145 mg/dL (0-129) HDL Cholesterol 32 mg/dL (40-60) Cholesterol/HDL Ratio 5.5 Free Thyroxine 0.66 ng/dL (0.76-1.46) Free Triiodothyronine (T3) pg/mL 2.15 pg/mL (2.18-3.98) Review of Systems Review of Systems Unable to obtain Assessment and Plan Assessmemt and Plan Assessment Intraparenchymal hemorrhage of the right basal ganglia with mild associated edema Hypertensive crisis Headache, secondary to above morbid obesity possible JOSE, secondary to above Plan ICU monitoring Neurology and Neurosurgery on board Pulm on board repeat Head CT per neuro npo IV fluid and BP support Comment Review of Relevant I have reviewed the following items wayne (where applicable) has been applied. Labs Laboratory Tests Test 02/03/18 11:49 02/03/18 11:54 02/03/18 17:00 02/04/18 04:30 Glucose (Fingerstick) 108 mg/dL (70-99) White Blood Count 13.8 x10^3/uL (4.0-11.0) 11.9 x10^3/uL (4.0-11.0) Red Blood Count 4.67 x10^6/uL (4.30-5.70) 4.63 x10^6/uL (4.30-5.70) Hemoglobin 14.2 g/dL (13.0-17.5) 13.7 g/dL (13.0-17.5) Hematocrit 41.0 % (39.0-53.0) 41.0 % (39.0-53.0) Mean Corpuscular Volume 88 fL (79-100) 89 fL (79-100) Mean Corpuscular Hemoglobin 31 pg (25-35) 30 pg (25-35) Mean Corpuscular Hemoglobin Concent 35 g/dL (31-37) 33 g/dL (31-37) Red Cell Distribution Width 14.3 % (11.5-14.5) 14.6 % (11.5-14.5) Platelet Count 303 x10^3/uL (140-400) 305 x10^3/uL (140-400) Neutrophils (%) (Auto) 77 % (31-73) 63 % (31-73) Lymphocytes (%) (Auto) 14 % (24-48) 24 % (24-48) Monocytes (%) (Auto) 8 % (0-9) 10 % (0-9) Eosinophils (%) (Auto) 1 % (0-3) 3 % (0-3) Basophils (%) (Auto) 1 % (0-3) 1 % (0-3) Neutrophils # (Auto) 10.6 x10^3uL (1.8-7.7) 7.4 x10^3uL (1.8-7.7) Lymphocytes # (Auto) 1.9 x10^3/uL (1.0-4.8) 2.8 x10^3/uL (1.0-4.8) Monocytes # (Auto) 1.1 x10^3/uL (0.0-1.1) 1.2 x10^3/uL (0.0-1.1) Eosinophils # (Auto) 0.1 x10^3/uL (0.0-0.7) 0.3 x10^3/uL (0.0-0.7) Basophils # (Auto) 0.1 x10^3/uL (0.0-0.2) 0.1 x10^3/uL (0.0-0.2) Prothrombin Time 13.4 SEC (11.7-14.0) Prothromb Time International Ratio 1.1 (0.8-1.1) Activated Partial Thromboplast Time 29 SEC (24-38) Sodium Level 141 mmol/L (136-145) 141 mmol/L (136-145) Potassium Level 3.9 mmol/L (3.5-5.1) 4.2 mmol/L (3.5-5.1) Chloride Level 105 mmol/L (98-107) 105 mmol/L (98-107) Carbon Dioxide Level 25 mmol/L (21-32) 26 mmol/L (21-32) Anion Gap 11 (6-14) 10 (6-14) Blood Urea Nitrogen 16 mg/dL (8-26) 20 mg/dL (8-26) Creatinine 1.6 mg/dL (0.7-1.3) 2.0 mg/dL (0.7-1.3) Estimated GFR (Cockcroft-Gault) 44.9 34.7 BUN/Creatinine Ratio 10 (6-20) 10 (6-20) Glucose Level 118 mg/dL (70-99) 122 mg/dL (70-99) Calcium Level 10.4 mg/dL (8.5-10.1) 9.6 mg/dL (8.5-10.1) Magnesium Level 1.8 mg/dL (1.8-2.4) Total Bilirubin 0.6 mg/dL (0.2-1.0) 0.8 mg/dL (0.2-1.0) Aspartate Amino Transf (AST/SGOT) 49 U/L (15-37) 57 U/L (15-37) Alanine Aminotransferase (ALT/SGPT) 87 U/L (16-63) 89 U/L (16-63) Alkaline Phosphatase 63 U/L (46-116) 62 U/L (46-116) Troponin I Quantitative 0.018 ng/mL (0.000-0.055) Total Protein 8.1 g/dL (6.4-8.2) 8.0 g/dL (6.4-8.2) Albumin 3.8 g/dL (3.4-5.0) 3.8 g/dL (3.4-5.0) Albumin/Globulin Ratio 0.9 (1.0-1.7) 0.9 (1.0-1.7) Thyroid Stimulating Hormone (TSH) 15.636 uIU/mL (0.358-3.74) Ethyl Alcohol Level < 10 mg/dL (0-10) Urine Collection Type Unknown Urine Color Yellow Urine Clarity Hazy Urine pH 5.5 Urine Specific [place] 1.020 Urine Protein Negative mg/dL (NEG-TRACE) Urine Glucose (UA) Negative mg/dL (NEG) Urine Ketones (Stick) Negative mg/dL (NEG) Urine Blood Negative (NEG) Urine Nitrite Negative (NEG) Urine Bilirubin Negative (NEG) Urine Urobilinogen Dipstick 0.2 mg/dL (0.2 mg/dL) Urine Leukocyte Esterase Negative (NEG) Urine RBC Occ /HPF (0-2) Urine WBC 1-4 /HPF (0-4) Urine Squamous Epithelial Cells Few /LPF Urine Bacteria 0 /HPF (0-FEW) Urine Mucus Mod /LPF Urine Opiates Screen Neg (NEG) Urine Methadone Screen Neg (NEG) Urine Barbiturates Neg (NEG) Urine Phencyclidine Screen Neg (NEG) Urine Amphetamine/Methamphetamine Neg (NEG) Urine Benzodiazepines Screen Neg (NEG) Urine Cocaine Screen Neg (NEG) Urine Cannabinoids Screen Neg (NEG) Urine Ethyl Alcohol Neg (NEG) Triglycerides Level 135 mg/dL (0-150) Cholesterol Level 177 mg/dL (0-200) LDL Cholesterol, Calculated 118 mg/dL (0-100) VLDL Cholesterol, Calculated 27 mg/dL (0-40) Non-HDL Cholesterol Calculated 145 mg/dL (0-129) HDL Cholesterol 32 mg/dL (40-60) Cholesterol/HDL Ratio 5.5 Free Thyroxine 0.66 ng/dL (0.76-1.46) Free Triiodothyronine (T3) pg/mL 2.15 pg/mL (2.18-3.98) Test 02/04/18 09:45 Urine Opiates Screen Neg (NEG) Urine Methadone Screen Neg (NEG) Urine Barbiturates Neg (NEG) Urine Phencyclidine Screen Neg (NEG) Urine Amphetamine/Methamphetamine Neg (NEG) Urine Benzodiazepines Screen Neg (NEG) Urine Cocaine Screen Neg (NEG) Urine Cannabinoids Screen Neg (NEG) Urine Ethyl Alcohol Neg (NEG) Laboratory Tests Test 02/03/18 17:00 02/04/18 04:30 02/04/18 09:45 Urine Collection Type Unknown Urine Color Yellow Urine Clarity Hazy Urine pH 5.5 Urine Specific [place] 1.020 Urine Protein Negative mg/dL (NEG-TRACE) Urine Glucose (UA) Negative mg/dL (NEG) Urine Ketones (Stick) Negative mg/dL (NEG) Urine Blood Negative (NEG) Urine Nitrite Negative (NEG) Urine Bilirubin Negative (NEG) Urine Urobilinogen Dipstick 0.2 mg/dL (0.2 mg/dL) Urine Leukocyte Esterase Negative (NEG) Urine RBC Occ /HPF (0-2) Urine WBC 1-4 /HPF (0-4) Urine Squamous Epithelial Cells Few /LPF Urine Bacteria 0 /HPF (0-FEW) Urine Mucus Mod /LPF Urine Opiates Screen Neg (NEG) Neg (NEG) Urine Methadone Screen Neg (NEG) Neg (NEG) Urine Barbiturates Neg (NEG) Neg (NEG) Urine Phencyclidine Screen Neg (NEG) Neg (NEG) Urine Amphetamine/Methamphetamine Neg (NEG) Neg (NEG) Urine Benzodiazepines Screen Neg (NEG) Neg (NEG) Urine Cocaine Screen Neg (NEG) Neg (NEG) Urine Cannabinoids Screen Neg (NEG) Neg (NEG) Urine Ethyl Alcohol Neg (NEG) Neg (NEG) White Blood Count 11.9 x10^3/uL (4.0-11.0) Red Blood Count 4.63 x10^6/uL (4.30-5.70) Hemoglobin 13.7 g/dL (13.0-17.5) Hematocrit 41.0 % (39.0-53.0) Mean Corpuscular Volume 89 fL (79-100) Mean Corpuscular Hemoglobin 30 pg (25-35) Mean Corpuscular Hemoglobin Concent 33 g/dL (31-37) Red Cell Distribution Width 14.6 % (11.5-14.5) Platelet Count 305 x10^3/uL (140-400) Neutrophils (%) (Auto) 63 % (31-73) Lymphocytes (%) (Auto) 24 % (24-48) Monocytes (%) (Auto) 10 % (0-9) Eosinophils (%) (Auto) 3 % (0-3) Basophils (%) (Auto) 1 % (0-3) Neutrophils # (Auto) 7.4 x10^3uL (1.8-7.7) Lymphocytes # (Auto) 2.8 x10^3/uL (1.0-4.8) Monocytes # (Auto) 1.2 x10^3/uL (0.0-1.1) Eosinophils # (Auto) 0.3 x10^3/uL (0.0-0.7) Basophils # (Auto) 0.1 x10^3/uL (0.0-0.2) Sodium Level 141 mmol/L (136-145) Potassium Level 4.2 mmol/L (3.5-5.1) Chloride Level 105 mmol/L (98-107) Carbon Dioxide Level 26 mmol/L (21-32) Anion Gap 10 (6-14) Blood Urea Nitrogen 20 mg/dL (8-26) Creatinine 2.0 mg/dL (0.7-1.3) Estimated GFR (Cockcroft-Gault) 34.7 BUN/Creatinine Ratio 10 (6-20) Glucose Level 122 mg/dL (70-99) Calcium Level 9.6 mg/dL (8.5-10.1) Total Bilirubin 0.8 mg/dL (0.2-1.0) Aspartate Amino Transf (AST/SGOT) 57 U/L (15-37) Alanine Aminotransferase (ALT/SGPT) 89 U/L (16-63) Alkaline Phosphatase 62 U/L (46-116) Total Protein 8.0 g/dL (6.4-8.2) Albumin 3.8 g/dL (3.4-5.0) Albumin/Globulin Ratio 0.9 (1.0-1.7) Triglycerides Level 135 mg/dL (0-150) Cholesterol Level 177 mg/dL (0-200) LDL Cholesterol, Calculated 118 mg/dL (0-100) VLDL Cholesterol, Calculated 27 mg/dL (0-40) Non-HDL Cholesterol Calculated 145 mg/dL (0-129) HDL Cholesterol 32 mg/dL (40-60) Cholesterol/HDL Ratio 5.5 Free Thyroxine 0.66 ng/dL (0.76-1.46) Free Triiodothyronine (T3) pg/mL 2.15 pg/mL (2.18-3.98) Medications Current Medications Labetalol HCl (Normodyne Iv Push) 20 mg 1X ONCE IVP Last administered on 02/03at 12:26; Start 02/03/18 at 12:15; Stop 02/03/18 at 12:16; Status DC Nicardipine HCl 50 mg/Sodium Chloride 270 ml @ 27 mls/hr CONT PRN IV SEE I/O RECORD Last administered on 02/03/18at 22:04; Start 02/03/18 at 12:30 Ondansetron HCl (Zofran) 4 mg PRN Q8HRS PRN IV NAUSEA/VOMITING; Start at 13:15; Stop 02/04/18 at 13:14; Status DC Fentanyl Citrate (Fentanyl 2ml Vial) 50 mcg PRN Q1HR PRN IV PAIN; Start at 13:15; Stop 02/04/18 at 13:14; Status DC Metoprolol Succinate (Toprol Xl) 25 mg DAILY PO Last administered on at 10:09; Start 02/03/18 at 22:30 Simvastatin (Zocor) 20 mg HS PO ; Start 02/04/18 at 21:00 Labetalol HCl (Normodyne Iv Push) 20 mg PRN Q2HR PRN IVP HYPERTENSION, SEE COMMENTS; Start 02/04/18 at 13:15 Vitals/I & O Vital Sign - Last 24 Hours 02/03/18 02/03/18 02/03/18 02/03/18 13:45 14:00 14:15 14:45 Temp 98.3 98.3 Pulse 74 74 77 82 Resp 19 B/P (MAP) 158/92 (114) 149/81 (103) 154/77 (102) 163/77 (105) Pulse Ox 97 96 96 98 O2 Delivery Room Air Room Air Room Air Room Air 02/03/18 02/03/18 02/03/18 02/03/18 14:45 15:00 15:15 16:00 Pulse 76 74 76 Resp 21 B/P (MAP) 165/81 (109) 157/68 (97) 154/68 (96) Pulse Ox 96 95 95 O2 Delivery Room Air Room Air Room Air Room Air 02/03/18 02/03/18 02/03/18 02/03/18 16:00 17:00 18:00 19:00 Temp 99.2 99.2 Pulse 82 76 76 Resp 12 B/P (MAP) 161/81 (107) 121/66 (84) 150/78 (102) Pulse Ox 96 96 97 O2 Delivery Room Air Room Air Room Air Room Air 02/03/18 02/03/18 02/03/18 02/03/18 20:00 20:00 21:00 22:00 Pulse 78 80 90 Resp 22 18 30 B/P (MAP) 167/75 (105) 157/91 (113) 153/76 (101) Pulse Ox 95 95 97 O2 Delivery Room Air Room Air Room Air Room Air 02/03/18 02/03/18 02/03/18 02/04/18 22:30 23:00 23:59 00:00 Temp 99.5 99.5 Pulse 79 73 88 Resp 26 22 B/P (MAP) 153/76 130/82 (98) 120/77 (91) Pulse Ox 94 96 O2 Delivery Room Air Room Air Room Air 02/04/18 02/04/18 02/04/18 02/04/18 01:00 02:00 03:00 04:00 Temp 99.2 99.2 Pulse 75 75 75 70 Resp 23 22 14 26 B/P (MAP) 140/77 (98) 142/73 (96) 145/67 (93) 120/67 (84) Pulse Ox 98 96 97 94 O2 Delivery Nasal Cannula Nasal Cannula Nasal Cannula Nasal Cannula O2 Flow Rate 2.0 2.0 2.0 2.0 02/04/18 02/04/18 02/04/18 02/04/18 04:00 05:00 06:00 07:00 Pulse 66 68 70 Resp 20 20 22 B/P (MAP) 150/74 (99) 161/77 (105) 147/79 (101) Pulse Ox 96 95 97 O2 Delivery Room Air Nasal Cannula Nasal Cannula Nasal Cannula O2 Flow Rate 2.0 2.0 2.0 02/04/18 02/04/18 02/04/18 02/04/18 08:00 08:00 09:00 10:00 Temp 98.2 98.2 Pulse 74 73 91 Resp 18 19 17 B/P (MAP) 163/96 (118) 142/81 (101) 136/86 (103) Pulse Ox 97 98 97 O2 Delivery Nasal Cannula Nasal Cannula Nasal Cannula Nasal Cannula O2 Flow Rate 2.0 2.0 2.0 2.0 02/04/18 02/04/18 02/04/18 02/04/18 10:09 11:00 12:00 12:00 Pulse 90 74 90 Resp 16 17 B/P (MAP) 136/89 175/84 (114) 185/90 (121) Pulse Ox 98 97 O2 Delivery Nasal Cannula Nasal Cannula Nasal Cannula O2 Flow Rate 2.0 2.0 2.0 02/04/18 12:45 Pulse 82 Resp 17 B/P (MAP) 164/79 (107) Pulse Ox 98 O2 Delivery Nasal Cannula O2 Flow Rate 2.0 Intake and Output 02/03/18 02/03/18 02/04/18 15:00 23:00 07:00 Intake Total 162 ml 348 ml Output Total 0 ml 200 ml 0 ml Balance 0 ml -38 ml 348 ml STANISLAW ARCHER III DO Feb 04, 2018 13:41
[2018-02-04] MEDS ORDERED: LABETALOL 20 MG/4 ML DISP.SYRIN. IVP PRN (13:45)
--- NOTE | 2018-02-04 15:10 | PDOC ---
PROGRESS NOTES Subjective Subjective patient seen at 1240 awake, alert intermittent headache speech improved Objective Objective Vital Signs Date Time Temp Pulse Resp B/P (MAP) Pulse Ox O2 Delivery O2 Flow Rate FiO2 02/04/18 14:45 80 22 147/82 (103) 95 Nasal Cannula 2.0 02/04/18 08:00 98.2 98.2 Intake and Output 02/04/18 07:00 Intake Total 510 ml Output Total 200 ml Balance 310 ml IV Total 510 ml Output Urine Total 200 ml Physical Exam General: Alert, Oriented X3, Cooperative, No acute distress Neuro: Other (speech improved, continued left upper extremitiy weakness) Assessment Assessment Problems Medical Problems: (1) Hypertensive emergency Status: Acute (2) Intraparenchymal hemorrhage of brain Status: Acute Plan Plan of Care F/U CT pending will follow SCDs Comment Review of Relevant I have reviewed the following items wayne (where applicable) has been applied. Labs Laboratory Tests Test 02/03/18 11:49 02/03/18 11:54 02/03/18 17:00 02/04/18 04:30 Glucose (Fingerstick) 108 mg/dL (70-99) White Blood Count 13.8 x10^3/uL (4.0-11.0) 11.9 x10^3/uL (4.0-11.0) Red Blood Count 4.67 x10^6/uL (4.30-5.70) 4.63 x10^6/uL (4.30-5.70) Hemoglobin 14.2 g/dL (13.0-17.5) 13.7 g/dL (13.0-17.5) Hematocrit 41.0 % (39.0-53.0) 41.0 % (39.0-53.0) Mean Corpuscular Volume 88 fL (79-100) 89 fL (79-100) Mean Corpuscular Hemoglobin 31 pg (25-35) 30 pg (25-35) Mean Corpuscular Hemoglobin Concent 35 g/dL (31-37) 33 g/dL (31-37) Red Cell Distribution Width 14.3 % (11.5-14.5) 14.6 % (11.5-14.5) Platelet Count 303 x10^3/uL (140-400) 305 x10^3/uL (140-400) Neutrophils (%) (Auto) 77 % (31-73) 63 % (31-73) Lymphocytes (%) (Auto) 14 % (24-48) 24 % (24-48) Monocytes (%) (Auto) 8 % (0-9) 10 % (0-9) Eosinophils (%) (Auto) 1 % (0-3) 3 % (0-3) Basophils (%) (Auto) 1 % (0-3) 1 % (0-3) Neutrophils # (Auto) 10.6 x10^3uL (1.8-7.7) 7.4 x10^3uL (1.8-7.7) Lymphocytes # (Auto) 1.9 x10^3/uL (1.0-4.8) 2.8 x10^3/uL (1.0-4.8) Monocytes # (Auto) 1.1 x10^3/uL (0.0-1.1) 1.2 x10^3/uL (0.0-1.1) Eosinophils # (Auto) 0.1 x10^3/uL (0.0-0.7) 0.3 x10^3/uL (0.0-0.7) Basophils # (Auto) 0.1 x10^3/uL (0.0-0.2) 0.1 x10^3/uL (0.0-0.2) Prothrombin Time 13.4 SEC (11.7-14.0) Prothromb Time International Ratio 1.1 (0.8-1.1) Activated Partial Thromboplast Time 29 SEC (24-38) Sodium Level 141 mmol/L (136-145) 141 mmol/L (136-145) Potassium Level 3.9 mmol/L (3.5-5.1) 4.2 mmol/L (3.5-5.1) Chloride Level 105 mmol/L (98-107) 105 mmol/L (98-107) Carbon Dioxide Level 25 mmol/L (21-32) 26 mmol/L (21-32) Anion Gap 11 (6-14) 10 (6-14) Blood Urea Nitrogen 16 mg/dL (8-26) 20 mg/dL (8-26) Creatinine 1.6 mg/dL (0.7-1.3) 2.0 mg/dL (0.7-1.3) Estimated GFR (Cockcroft-Gault) 44.9 34.7 BUN/Creatinine Ratio 10 (6-20) 10 (6-20) Glucose Level 118 mg/dL (70-99) 122 mg/dL (70-99) Calcium Level 10.4 mg/dL (8.5-10.1) 9.6 mg/dL (8.5-10.1) Magnesium Level 1.8 mg/dL (1.8-2.4) Total Bilirubin 0.6 mg/dL (0.2-1.0) 0.8 mg/dL (0.2-1.0) Aspartate Amino Transf (AST/SGOT) 49 U/L (15-37) 57 U/L (15-37) Alanine Aminotransferase (ALT/SGPT) 87 U/L (16-63) 89 U/L (16-63) Alkaline Phosphatase 63 U/L (46-116) 62 U/L (46-116) Troponin I Quantitative 0.018 ng/mL (0.000-0.055) Total Protein 8.1 g/dL (6.4-8.2) 8.0 g/dL (6.4-8.2) Albumin 3.8 g/dL (3.4-5.0) 3.8 g/dL (3.4-5.0) Albumin/Globulin Ratio 0.9 (1.0-1.7) 0.9 (1.0-1.7) Thyroid Stimulating Hormone (TSH) 15.636 uIU/mL (0.358-3.74) Ethyl Alcohol Level < 10 mg/dL (0-10) Urine Collection Type Unknown Urine Color Yellow Urine Clarity Hazy Urine pH 5.5 Urine Specific [place] 1.020 Urine Protein Negative mg/dL (NEG-TRACE) Urine Glucose (UA) Negative mg/dL (NEG) Urine Ketones (Stick) Negative mg/dL (NEG) Urine Blood Negative (NEG) Urine Nitrite Negative (NEG) Urine Bilirubin Negative (NEG) Urine Urobilinogen Dipstick 0.2 mg/dL (0.2 mg/dL) Urine Leukocyte Esterase Negative (NEG) Urine RBC Occ /HPF (0-2) Urine WBC 1-4 /HPF (0-4) Urine Squamous Epithelial Cells Few /LPF Urine Bacteria 0 /HPF (0-FEW) Urine Mucus Mod /LPF Urine Opiates Screen Neg (NEG) Urine Methadone Screen Neg (NEG) Urine Barbiturates Neg (NEG) Urine Phencyclidine Screen Neg (NEG) Urine Amphetamine/Methamphetamine Neg (NEG) Urine Benzodiazepines Screen Neg (NEG) Urine Cocaine Screen Neg (NEG) Urine Cannabinoids Screen Neg (NEG) Urine Ethyl Alcohol Neg (NEG) Triglycerides Level 135 mg/dL (0-150) Cholesterol Level 177 mg/dL (0-200) LDL Cholesterol, Calculated 118 mg/dL (0-100) VLDL Cholesterol, Calculated 27 mg/dL (0-40) Non-HDL Cholesterol Calculated 145 mg/dL (0-129) HDL Cholesterol 32 mg/dL (40-60) Cholesterol/HDL Ratio 5.5 Free Thyroxine 0.66 ng/dL (0.76-1.46) Free Triiodothyronine (T3) pg/mL 2.15 pg/mL (2.18-3.98) Test 02/04/18 09:45 Urine Opiates Screen Neg (NEG) Urine Methadone Screen Neg (NEG) Urine Barbiturates Neg (NEG) Urine Phencyclidine Screen Neg (NEG) Urine Amphetamine/Methamphetamine Neg (NEG) Urine Benzodiazepines Screen Neg (NEG) Urine Cocaine Screen Neg (NEG) Urine Cannabinoids Screen Neg (NEG) Urine Ethyl Alcohol Neg (NEG) Laboratory Tests Test 02/03/18 17:00 02/04/18 04:30 02/04/18 09:45 Urine Collection Type Unknown Urine Color Yellow Urine Clarity Hazy Urine pH 5.5 Urine Specific [place] 1.020 Urine Protein Negative mg/dL (NEG-TRACE) Urine Glucose (UA) Negative mg/dL (NEG) Urine Ketones (Stick) Negative mg/dL (NEG) Urine Blood Negative (NEG) Urine Nitrite Negative (NEG) Urine Bilirubin Negative (NEG) Urine Urobilinogen Dipstick 0.2 mg/dL (0.2 mg/dL) Urine Leukocyte Esterase Negative (NEG) Urine RBC Occ /HPF (0-2) Urine WBC 1-4 /HPF (0-4) Urine Squamous Epithelial Cells Few /LPF Urine Bacteria 0 /HPF (0-FEW) Urine Mucus Mod /LPF Urine Opiates Screen Neg (NEG) Neg (NEG) Urine Methadone Screen Neg (NEG) Neg (NEG) Urine Barbiturates Neg (NEG) Neg (NEG) Urine Phencyclidine Screen Neg (NEG) Neg (NEG) Urine Amphetamine/Methamphetamine Neg (NEG) Neg (NEG) Urine Benzodiazepines Screen Neg (NEG) Neg (NEG) Urine Cocaine Screen Neg (NEG) Neg (NEG) Urine Cannabinoids Screen Neg (NEG) Neg (NEG) Urine Ethyl Alcohol Neg (NEG) Neg (NEG) White Blood Count 11.9 x10^3/uL (4.0-11.0) Red Blood Count 4.63 x10^6/uL (4.30-5.70) Hemoglobin 13.7 g/dL (13.0-17.5) Hematocrit 41.0 % (39.0-53.0) Mean Corpuscular Volume 89 fL (79-100) Mean Corpuscular Hemoglobin 30 pg (25-35) Mean Corpuscular Hemoglobin Concent 33 g/dL (31-37) Red Cell Distribution Width 14.6 % (11.5-14.5) Platelet Count 305 x10^3/uL (140-400) Neutrophils (%) (Auto) 63 % (31-73) Lymphocytes (%) (Auto) 24 % (24-48) Monocytes (%) (Auto) 10 % (0-9) Eosinophils (%) (Auto) 3 % (0-3) Basophils (%) (Auto) 1 % (0-3) Neutrophils # (Auto) 7.4 x10^3uL (1.8-7.7) Lymphocytes # (Auto) 2.8 x10^3/uL (1.0-4.8) Monocytes # (Auto) 1.2 x10^3/uL (0.0-1.1) Eosinophils # (Auto) 0.3 x10^3/uL (0.0-0.7) Basophils # (Auto) 0.1 x10^3/uL (0.0-0.2) Sodium Level 141 mmol/L (136-145) Potassium Level 4.2 mmol/L (3.5-5.1) Chloride Level 105 mmol/L (98-107) Carbon Dioxide Level 26 mmol/L (21-32) Anion Gap 10 (6-14) Blood Urea Nitrogen 20 mg/dL (8-26) Creatinine 2.0 mg/dL (0.7-1.3) Estimated GFR (Cockcroft-Gault) 34.7 BUN/Creatinine Ratio 10 (6-20) Glucose Level 122 mg/dL (70-99) Calcium Level 9.6 mg/dL (8.5-10.1) Total Bilirubin 0.8 mg/dL (0.2-1.0) Aspartate Amino Transf (AST/SGOT) 57 U/L (15-37) Alanine Aminotransferase (ALT/SGPT) 89 U/L (16-63) Alkaline Phosphatase 62 U/L (46-116) Total Protein 8.0 g/dL (6.4-8.2) Albumin 3.8 g/dL (3.4-5.0) Albumin/Globulin Ratio 0.9 (1.0-1.7) Triglycerides Level 135 mg/dL (0-150) Cholesterol Level 177 mg/dL (0-200) LDL Cholesterol, Calculated 118 mg/dL (0-100) VLDL Cholesterol, Calculated 27 mg/dL (0-40) Non-HDL Cholesterol Calculated 145 mg/dL (0-129) HDL Cholesterol 32 mg/dL (40-60) Cholesterol/HDL Ratio 5.5 Free Thyroxine 0.66 ng/dL (0.76-1.46) Free Triiodothyronine (T3) pg/mL 2.15 pg/mL (2.18-3.98) Medications Current Medications Labetalol HCl (Normodyne Iv Push) 20 mg 1X ONCE IVP Last administered on 02/03at 12:26; Start 02/03/18 at 12:15; Stop 02/03/18 at 12:16; Status DC Nicardipine HCl 50 mg/Sodium Chloride 270 ml @ 27 mls/hr CONT PRN IV SEE I/O RECORD Last administered on 02/03/18at 22:04; Start 02/03/18 at 12:30 Ondansetron HCl (Zofran) 4 mg PRN Q8HRS PRN IV NAUSEA/VOMITING; Start at 13:15; Stop 02/04/18 at 13:14; Status DC Fentanyl Citrate (Fentanyl 2ml Vial) 50 mcg PRN Q1HR PRN IV PAIN; Start at 13:15; Stop 02/04/18 at 13:14; Status DC Metoprolol Succinate (Toprol Xl) 25 mg DAILY PO Last administered on at 10:09; Start 02/03/18 at 22:30 Simvastatin (Zocor) 20 mg HS PO ; Start 02/04/18 at 21:00 Labetalol HCl (Normodyne Iv Push) 20 mg PRN Q2HR PRN IVP HYPERTENSION, SEE COMMENTS; Start 02/04/18 at 13:15 Labetalol HCl (Normodyne Iv Push) 20 mg PRN Q2HR PRN IVP HYPERTENSION, SEE COMMENTS; Start 02/04/18 at 13:45; Stop 02/04/18 at 13:46; Status DC Vitals/I & O Vital Sign - Last 24 Hours 02/03/18 02/03/18 02/03/18 02/03/18 15:15 16:00 16:00 17:00 Pulse 74 76 82 Resp 21 21 24 B/P (MAP) 157/68 (97) 154/68 (96) 161/81 (107) Pulse Ox 95 95 96 O2 Delivery Room Air Room Air Room Air Room Air 02/03/18 02/03/18 02/03/18 02/03/18 18:00 19:00 20:00 20:00 Temp 99.2 99.2 Pulse 76 76 78 Resp 18 12 22 B/P (MAP) 121/66 (84) 150/78 (102) 167/75 (105) Pulse Ox 96 97 95 O2 Delivery Room Air Room Air Room Air Room Air 02/03/18 02/03/18 02/03/18 02/03/18 21:00 22:00 22:30 23:00 Pulse 80 90 79 73 Resp 18 30 26 B/P (MAP) 157/91 (113) 153/76 (101) 153/76 130/82 (98) Pulse Ox 95 97 94 O2 Delivery Room Air Room Air Room Air 02/03/18 02/04/18 02/04/18 02/04/18 23:59 00:00 01:00 02:00 Temp 99.5 99.5 Pulse 88 75 75 Resp 22 23 22 B/P (MAP) 120/77 (91) 140/77 (98) 142/73 (96) Pulse Ox 96 98 96 O2 Delivery Room Air Room Air Nasal Cannula Nasal Cannula O2 Flow Rate 2.0 2.0 02/04/18 02/04/18 02/04/18 02/04/18 03:00 04:00 04:00 05:00 Temp 99.2 99.2 Pulse 75 70 66 Resp 14 26 20 B/P (MAP) 145/67 (93) 120/67 (84) 150/74 (99) Pulse Ox 97 94 96 O2 Delivery Nasal Cannula Nasal Cannula Room Air Nasal Cannula O2 Flow Rate 2.0 2.0 2.0 02/04/18 02/04/18 02/04/18 02/04/18 06:00 07:00 08:00 08:00 Temp 98.2 98.2 Pulse 68 70 74 Resp 20 22 18 B/P (MAP) 161/77 (105) 147/79 (101) 163/96 (118) Pulse Ox 95 97 97 O2 Delivery Nasal Cannula Nasal Cannula Nasal Cannula Nasal Cannula O2 Flow Rate 2.0 2.0 2.0 2.0 02/04/18 02/04/18 02/04/18 02/04/18 09:00 10:00 10:09 11:00 Pulse 73 91 90 74 Resp 19 17 16 B/P (MAP) 142/81 (101) 136/86 (103) 136/89 175/84 (114) Pulse Ox 98 97 98 O2 Delivery Nasal Cannula Nasal Cannula Nasal Cannula O2 Flow Rate 2.0 2.0 2.0 02/04/18 02/04/18 02/04/18 02/04/18 12:00 12:00 12:45 13:00 Pulse 90 82 77 Resp 17 17 15 B/P (MAP) 185/90 (121) 164/79 (107) 160/75 (103) Pulse Ox 97 98 96 O2 Delivery Nasal Cannula Nasal Cannula Nasal Cannula Nasal Cannula O2 Flow Rate 2.0 2.0 2.0 2.0 02/04/18 02/04/18 02/04/18 14:00 14:25 14:45 Pulse 76 68 80 Resp 16 22 22 B/P (MAP) 163/83 (109) 131/80 (97) 147/82 (103) Pulse Ox 98 95 95 O2 Delivery Nasal Cannula Nasal Cannula Nasal Cannula O2 Flow Rate 2.0 2.0 2.0 Intake and Output 02/03/1818 02/04/18 15:00 23:00 07:00 Intake Total 162 ml 348 ml Output Total 0 ml 200 ml 0 ml Balance 0 ml -38 ml 348 ml DEBORAH TERRY MD Feb 04, 2018 15:10
--- NOTE | 2018-02-04 16:09 | CARD ---
MR#: [id number] Date of Study: 02/04/2018 Ordering Physician: JOHN SILVESTRE, Referring Physician: HECTOR MURDOCK, Tech: Karey Dejesus APPROVED REPORT EXAM: Two-dimensional and M-mode echocardiogram with Doppler and color Doppler. Other Information Quality : AverageHR: 82bpm INDICATION Hypertension/HCVD 2D DIMENSIONS RVDd3.4 (2.9-3.5cm)Left Atrium(2D)3.3 (1.6-4.0cm) IVSd1.6 (0.7-1.1cm)Aortic Root(2D)3.3 (2.0-3.7cm) LVDd4.6 (3.9-5.9cm)LVOT Diameter2.2 (1.8-2.4cm) PWd1.3 (0.7-1.1cm)LVDs2.6 (2.5-4.0cm) FS (%) 44.9 %SV75.3 ml LVEF(%)76.3 (>50%) Aortic Valve AoV Peak Florencio.171.6cm/sAoV VTI34.2cm AO Peak GR.11.8mmHgLVOT VTI 19.51cm AO Mean GR.8mmHg Mitral Valve MV E Gfohwjtg57.0cm/sMV DECEL ATAU380id MV A Qvvfoitq79.7cm/sE/A Ratio1.0 TDI Lateral E' P. V8.88cm/sMedial E' P. V7.72cm/s E/Lateral E'10.2E/Medial E'11.8 Tricuspid Valve TR P. Uvyfwxzu197rn/sRAP GUAZNAVV5hmLu TR Peak Gr.56ikRuFWTN28ztOw Pulmonary Vein S1 Saidaihy20.4cm/sS2 Guysaxyf20.07cm/s D2 Dujsrrvq53.1cm/sPVa [id number] LEFT VENTRICLE The left ventricle is normal size. There is moderate concentric left ventricular hypertrophy. The lef t ventricular systolic function is normal. The Ejection Fraction is 60-65%. There is normal LV segmen eduardo wall motion. The left ventricular diastolic function and filling is normal for age. RIGHT VENTRICLE The right ventricle is normal size. There is normal right ventricular wall thickness. The right ventr icular systolic function is normal. ATRIA The left atrium size is normal. The right atrium size is normal. The interatrial septum is intact wit h no evidence for an atrial septal defect or patent foramen ovale as noted on 2-D or Doppler imaging. AORTIC VALVE The aortic valve is normal in structure and function. Doppler and Color Flow revealed no significant aortic regurgitation. There is no significant aortic valvular stenosis. MITRAL VALVE The mitral valve is normal in structure and function. There is no evidence of mitral valve prolapse. There is no mitral valve stenosis. Doppler and Color Flow revealed trace mitral regurgitation. TRICUSPID VALVE The tricuspid valve is not well visualized. Doppler and Color Flow revealed trace tricuspid regurgita tion. There is no tricuspid valve stenosis. PULMONIC VALVE The pulmonic valve is not well visualized. Doppler and Color Flow revealed trace pulmonic valvular re gurgitation. GREAT VESSELS The aortic root is normal in size. Normal pulmonary venous flow (Doppler). The IVC is normal in size and collapses >50% with inspiration. PERICARDIAL EFFUSION There is no evidence of significant pericardial effusion. Critical Notification Critical Value: No <Conclusion> The left ventricular systolic function is normal. The Ejection Fraction is 60-65%. There is normal LV segmental wall motion. Trace mitral regurgitation. Trace tricuspid regurgitation. There is no evidence of significant pericardial effusion. Signed by : Forrest Billings, Electronically Approved : 02/04/2018 16:08:25
--- NOTE | 2018-02-04 16:29 | RAD ---
EXAM: CT Head without IV contrast CLINICAL HISTORY: F/U intracranial hemorrhage COMPARISON: 02/03/2018 TECHNIQUE: Routine CT of the head without contrast. Soft tissues and bone windows were reviewed. PQRS compliance statement - One or more of the following individualized dose reduction techniques were utilized for this study: 1. Automated exposure control 2. Adjustment of the mA and/or kV according to patient size 3. Use of iterative reconstruction technique FINDINGS: Right basal ganglia hemorrhage is grossly stable in size with mild surrounding hypoattenuation suggesting associated edema. Trace mass effect on the adjacent right lateral ventricle without mass effect on the associated sulci/gyri. No midline shift. Melvin-white differentiation is otherwise maintained. The ventricles, basilar cisterns and cortical sulci are normal in size and configuration for the patients stated age. The cerebellum and brainstem are unremarkable. The calvarium demonstrates no evidence of fracture or focal lesion. There is normal aeration of the visualized paranasal sinuses and mastoid air cells. The visualized portions of the orbits are normal. IMPRESSION: 1. Stable right basal ganglia hemorrhage. Electronically signed by: Elmo To MD (02/04/2018 4:25 PM) [facility]
[2018-02-04] MEDS: amLODIPine BESYLATE 5 MG TABLET PO SCH (17:32)
[2018-02-04] MEDS: LABETALOL 20 MG/4 ML DISP.SYRIN. IVP PRN ×2 (17:32→22:12)
--- NOTE | 2018-02-04 18:40 | PDOC ---
PULMONARY PROGRESS NOTES Vitals Vital Signs Date Time Temp Pulse Resp B/P (MAP) Pulse Ox O2 Delivery O2 Flow Rate FiO2 02/04/18 18:00 79 26 178/117 (137) 97 Nasal Cannula 2.0 02/04/18 16:00 98.6 98.6 Lungs: Clear Labs Laboratory Tests Test 02/03/18 11:49 02/03/18 11:54 02/03/18 14:45 02/03/18 17:00 Glucose (Fingerstick) 108 mg/dL (70-99) White Blood Count 13.8 x10^3/uL (4.0-11.0) Red Blood Count 4.67 x10^6/uL (4.30-5.70) Hemoglobin 14.2 g/dL (13.0-17.5) Hematocrit 41.0 % (39.0-53.0) Mean Corpuscular Volume 88 fL (79-100) Mean Corpuscular Hemoglobin 31 pg (25-35) Mean Corpuscular Hemoglobin Concent 35 g/dL (31-37) Red Cell Distribution Width 14.3 % (11.5-14.5) Platelet Count 303 x10^3/uL (140-400) Neutrophils (%) (Auto) 77 % (31-73) Lymphocytes (%) (Auto) 14 % (24-48) Monocytes (%) (Auto) 8 % (0-9) Eosinophils (%) (Auto) 1 % (0-3) Basophils (%) (Auto) 1 % (0-3) Neutrophils # (Auto) 10.6 x10^3uL (1.8-7.7) Lymphocytes # (Auto) 1.9 x10^3/uL (1.0-4.8) Monocytes # (Auto) 1.1 x10^3/uL (0.0-1.1) Eosinophils # (Auto) 0.1 x10^3/uL (0.0-0.7) Basophils # (Auto) 0.1 x10^3/uL (0.0-0.2) Prothrombin Time 13.4 SEC (11.7-14.0) Prothromb Time International Ratio 1.1 (0.8-1.1) Activated Partial Thromboplast Time 29 SEC (24-38) Sodium Level 141 mmol/L (136-145) Potassium Level 3.9 mmol/L (3.5-5.1) Chloride Level 105 mmol/L (98-107) Carbon Dioxide Level 25 mmol/L (21-32) Anion Gap 11 (6-14) Blood Urea Nitrogen 16 mg/dL (8-26) Creatinine 1.6 mg/dL (0.7-1.3) Estimated GFR (Cockcroft-Gault) 44.9 BUN/Creatinine Ratio 10 (6-20) Glucose Level 118 mg/dL (70-99) Calcium Level 10.4 mg/dL (8.5-10.1) Magnesium Level 1.8 mg/dL (1.8-2.4) Total Bilirubin 0.6 mg/dL (0.2-1.0) Aspartate Amino Transf (AST/SGOT) 49 U/L (15-37) Alanine Aminotransferase (ALT/SGPT) 87 U/L (16-63) Alkaline Phosphatase 63 U/L (46-116) Troponin I Quantitative 0.018 ng/mL (0.000-0.055) Total Protein 8.1 g/dL (6.4-8.2) Albumin 3.8 g/dL (3.4-5.0) Albumin/Globulin Ratio 0.9 (1.0-1.7) Thyroid Stimulating Hormone (TSH) 15.636 uIU/mL (0.358-3.74) Ethyl Alcohol Level < 10 mg/dL (0-10) Nasal Screen MRSA (PCR) Negative (Negative) Urine Collection Type Unknown Urine Color Yellow Urine Clarity Hazy Urine pH 5.5 Urine Specific [place] 1.020 Urine Protein Negative mg/dL (NEG-TRACE) Urine Glucose (UA) Negative mg/dL (NEG) Urine Ketones (Stick) Negative mg/dL (NEG) Urine Blood Negative (NEG) Urine Nitrite Negative (NEG) Urine Bilirubin Negative (NEG) Urine Urobilinogen Dipstick 0.2 mg/dL (0.2 mg/dL) Urine Leukocyte Esterase Negative (NEG) Urine RBC Occ /HPF (0-2) Urine WBC 1-4 /HPF (0-4) Urine Squamous Epithelial Cells Few /LPF Urine Bacteria 0 /HPF (0-FEW) Urine Mucus Mod /LPF Urine Opiates Screen Neg (NEG) Urine Methadone Screen Neg (NEG) Urine Barbiturates Neg (NEG) Urine Phencyclidine Screen Neg (NEG) Urine Amphetamine/Methamphetamine Neg (NEG) Urine Benzodiazepines Screen Neg (NEG) Urine Cocaine Screen Neg (NEG) Urine Cannabinoids Screen Neg (NEG) Urine Ethyl Alcohol Neg (NEG) Test 02/04/18 04:30 02/04/18 09:45 White Blood Count 11.9 x10^3/uL (4.0-11.0) Red Blood Count 4.63 x10^6/uL (4.30-5.70) Hemoglobin 13.7 g/dL (13.0-17.5) Hematocrit 41.0 % (39.0-53.0) Mean Corpuscular Volume 89 fL (79-100) Mean Corpuscular Hemoglobin 30 pg (25-35) Mean Corpuscular Hemoglobin Concent 33 g/dL (31-37) Red Cell Distribution Width 14.6 % (11.5-14.5) Platelet Count 305 x10^3/uL (140-400) Neutrophils (%) (Auto) 63 % (31-73) Lymphocytes (%) (Auto) 24 % (24-48) Monocytes (%) (Auto) 10 % (0-9) Eosinophils (%) (Auto) 3 % (0-3) Basophils (%) (Auto) 1 % (0-3) Neutrophils # (Auto) 7.4 x10^3uL (1.8-7.7) Lymphocytes # (Auto) 2.8 x10^3/uL (1.0-4.8) Monocytes # (Auto) 1.2 x10^3/uL (0.0-1.1) Eosinophils # (Auto) 0.3 x10^3/uL (0.0-0.7) Basophils # (Auto) 0.1 x10^3/uL (0.0-0.2) Sodium Level 141 mmol/L (136-145) Potassium Level 4.2 mmol/L (3.5-5.1) Chloride Level 105 mmol/L (98-107) Carbon Dioxide Level 26 mmol/L (21-32) Anion Gap 10 (6-14) Blood Urea Nitrogen 20 mg/dL (8-26) Creatinine 2.0 mg/dL (0.7-1.3) Estimated GFR (Cockcroft-Gault) 34.7 BUN/Creatinine Ratio 10 (6-20) Glucose Level 122 mg/dL (70-99) Calcium Level 9.6 mg/dL (8.5-10.1) Total Bilirubin 0.8 mg/dL (0.2-1.0) Aspartate Amino Transf (AST/SGOT) 57 U/L (15-37) Alanine Aminotransferase (ALT/SGPT) 89 U/L (16-63) Alkaline Phosphatase 62 U/L (46-116) Total Protein 8.0 g/dL (6.4-8.2) Albumin 3.8 g/dL (3.4-5.0) Albumin/Globulin Ratio 0.9 (1.0-1.7) Triglycerides Level 135 mg/dL (0-150) Cholesterol Level 177 mg/dL (0-200) LDL Cholesterol, Calculated 118 mg/dL (0-100) VLDL Cholesterol, Calculated 27 mg/dL (0-40) Non-HDL Cholesterol Calculated 145 mg/dL (0-129) HDL Cholesterol 32 mg/dL (40-60) Cholesterol/HDL Ratio 5.5 Free Thyroxine 0.66 ng/dL (0.76-1.46) Free Triiodothyronine (T3) pg/mL 2.15 pg/mL (2.18-3.98) Urine Opiates Screen Neg (NEG) Urine Methadone Screen Neg (NEG) Urine Barbiturates Neg (NEG) Urine Phencyclidine Screen Neg (NEG) Urine Amphetamine/Methamphetamine Neg (NEG) Urine Benzodiazepines Screen Neg (NEG) Urine Cocaine Screen Neg (NEG) Urine Cannabinoids Screen Neg (NEG) Urine Ethyl Alcohol Neg (NEG) Laboratory Tests Test 02/04/18 04:30 02/04/18 09:45 White Blood Count 11.9 x10^3/uL (4.0-11.0) Red Blood Count 4.63 x10^6/uL (4.30-5.70) Hemoglobin 13.7 g/dL (13.0-17.5) Hematocrit 41.0 % (39.0-53.0) Mean Corpuscular Volume 89 fL (79-100) Mean Corpuscular Hemoglobin 30 pg (25-35) Mean Corpuscular Hemoglobin Concent 33 g/dL (31-37) Red Cell Distribution Width 14.6 % (11.5-14.5) Platelet Count 305 x10^3/uL (140-400) Neutrophils (%) (Auto) 63 % (31-73) Lymphocytes (%) (Auto) 24 % (24-48) Monocytes (%) (Auto) 10 % (0-9) Eosinophils (%) (Auto) 3 % (0-3) Basophils (%) (Auto) 1 % (0-3) Neutrophils # (Auto) 7.4 x10^3uL (1.8-7.7) Lymphocytes # (Auto) 2.8 x10^3/uL (1.0-4.8) Monocytes # (Auto) 1.2 x10^3/uL (0.0-1.1) Eosinophils # (Auto) 0.3 x10^3/uL (0.0-0.7) Basophils # (Auto) 0.1 x10^3/uL (0.0-0.2) Sodium Level 141 mmol/L (136-145) Potassium Level 4.2 mmol/L (3.5-5.1) Chloride Level 105 mmol/L (98-107) Carbon Dioxide Level 26 mmol/L (21-32) Anion Gap 10 (6-14) Blood Urea Nitrogen 20 mg/dL (8-26) Creatinine 2.0 mg/dL (0.7-1.3) Estimated GFR (Cockcroft-Gault) 34.7 BUN/Creatinine Ratio 10 (6-20) Glucose Level 122 mg/dL (70-99) Calcium Level 9.6 mg/dL (8.5-10.1) Total Bilirubin 0.8 mg/dL (0.2-1.0) Aspartate Amino Transf (AST/SGOT) 57 U/L (15-37) Alanine Aminotransferase (ALT/SGPT) 89 U/L (16-63) Alkaline Phosphatase 62 U/L (46-116) Total Protein 8.0 g/dL (6.4-8.2) Albumin 3.8 g/dL (3.4-5.0) Albumin/Globulin Ratio 0.9 (1.0-1.7) Triglycerides Level 135 mg/dL (0-150) Cholesterol Level 177 mg/dL (0-200) LDL Cholesterol, Calculated 118 mg/dL (0-100) VLDL Cholesterol, Calculated 27 mg/dL (0-40) Non-HDL Cholesterol Calculated 145 mg/dL (0-129) HDL Cholesterol 32 mg/dL (40-60) Cholesterol/HDL Ratio 5.5 Free Thyroxine 0.66 ng/dL (0.76-1.46) Free Triiodothyronine (T3) pg/mL 2.15 pg/mL (2.18-3.98) Urine Opiates Screen Neg (NEG) Urine Methadone Screen Neg (NEG) Urine Barbiturates Neg (NEG) Urine Phencyclidine Screen Neg (NEG) Urine Amphetamine/Methamphetamine Neg (NEG) Urine Benzodiazepines Screen Neg (NEG) Urine Cocaine Screen Neg (NEG) Urine Cannabinoids Screen Neg (NEG) Urine Ethyl Alcohol Neg (NEG) Impression . NOTE DICTATED THANKS RESP FAILURE JOSE HTN/CVA KELLIE MIRANDA MD Feb 04, 2018 18:40
--- NOTE | 2018-02-04 19:18 | PDOC2 ---
NEUROLOGY CONSULT Date of Admission Date of Admission DATE: 02/04/18 TIME: 18:59 Reason for Consult Reason for Consult: NEUROLOGY CONSULTATION 02-03-18 IMPRESSION: Right BG ICH. Cerebral edema. Headaches. Hypertensive emergency, BP 237/115 mmHg. Hypertensive encephalopathy. Metabolic encephalopathy. Left side weakness. Slurred speech. Elevated hepatic enzymes. HLD. Renal insufficiency. Hypothyroidism, TSH 15.636 RECOMMENDATIONS/PLAN: Continue life support in ICU. BP control. Repeat HCT w/o contrast if condition worse. Treat medical diseases. Treat thyroid disease per medical team. Lab: see orders. HISTORY OF THE PRESENT ILLNESS: 57-y-old male patient without knowing his health condition developed headaches, slurred speech, left side weakness and he was brought to the ER of [facility] on . His HCT reveled right BG hemorrhage. His BP was high round 237/115 mmHg. PAST MEDICAL HISTORY Cardiovascular: Hyperlipidemia Pulmonary: No pertinent hx CENTRAL NERVOUS SYSTEM: Other (no pertinent hx) GI: No pertinent hx Heme/Onc: No pertinent hx Hepatobiliary: No pertinent hx Psych: No pertinent hx Musculoskeletal: Other (no pertinent hx) Rheumatologic: Gout Infectious disease: No pertinent hx ENT: No pertinent hx Renal/: No pertinent hx Endocrine: No pertinent hx Dermatology: No pertinent hx PAST SURGICAL HISTORY No pertinent history FAMILY HISTORY Hypertension PAST SURGERY HISTORY: No major surgery recently. ALLERGY: Unknown MEDICATIONS: Refer to [facility] SOCIAL HISTORY: Denies current smoking and illicit drug use. Unknown his drinking status. REVIEW OF SYSTEMS: Constitutional: Obesity. Head: No recent traumatic brain or head injury. Skin: No edema, or rash. Ear: No infection, tinnitus. Eyes: No vision loss or color blindness. Nose: No bleeding or purulent discharges. Hearing: No hearing decrease. Neck: No injury. Cardiac: HTN. Pulmonary: No COPD. GI: No GI ulcer, GI bleeding. Urinary/genital: No dysuria, incontinence, urinary retention. Endocrinologic: Diabetes Mellitus, obesity. Skeletomuscular: No muscular atrophy, deformity. Neurological: see HP. Psychiatric: Denies drug use/abuse. Otherwise, not [id number] review of systems. PHYSICAL EXAMINATION: General appearance is in acute distress. HEENT: Normocephalic and nontraumatic. Eyes, nose, ears, and throat are unremarkable. Neck is supple. No lymphadenopathy. No crepitus. Cardiovascular: S1, S2, regular rate and rhythm. Pulmonary: Clear to auscultation bilaterally. Abdomen: Bowel sounds are positive. Abdomen is soft, nontender, and nondistended. Extremities: No rash or edema. NEUROLOGICAL EXAMINATION: Lethargic on 02/03. Not oriented to time, place and person. PERRL. EOMI. CN: no focal findings. Muscle tone: within normal. Muscle strength: movements observed to stimuli. DTR:1- 2 Plantar reflex: Neutral response bilaterally Gait: not examined in bed. Sensory exam: no abnormal findings. Not able to access cerebellar signs elicited. F-T-N test not performed due to not follow commands. Current Medications Current Medications Current Medications Labetalol HCl (Normodyne Iv Push) 20 mg 1X ONCE IVP Last administered on 02/03at 12:26; Start 02/03/18 at 12:15; Stop 02/03/18 at 12:16; Status DC Nicardipine HCl 50 mg/Sodium Chloride 270 ml @ 27 mls/hr CONT PRN IV SEE I/O RECORD Last administered on 02/03/18at 22:04; Start 02/03/18 at 12:30 Ondansetron HCl (Zofran) 4 mg PRN Q8HRS PRN IV NAUSEA/VOMITING; Start at 13:15; Stop 02/04/18 at 13:14; Status DC Fentanyl Citrate (Fentanyl 2ml Vial) 50 mcg PRN Q1HR PRN IV PAIN; Start at 13:15; Stop 02/04/18 at 13:14; Status DC Metoprolol Succinate (Toprol Xl) 25 mg DAILY PO Last administered on at 10:09; Start 02/03/18 at 22:30 Simvastatin (Zocor) 20 mg HS PO ; Start 02/04/18 at 21:00 Labetalol HCl (Normodyne Iv Push) 20 mg PRN Q2HR PRN IVP HYPERTENSION, SEE COMMENTS Last administered on 02/04/18at 17:32; Start 02/04/18 at 13:15 Labetalol HCl (Normodyne Iv Push) 20 mg PRN Q2HR PRN IVP HYPERTENSION, SEE COMMENTS; Start 02/04/18 at 13:45; Stop 02/04/18 at 13:46; Status DC Amlodipine Besylate (Norvasc) 5 mg DAILY PO Last administered on 02/04/18at 17: 32; Start 02/04/18 at 18:00 Allergies Allergies: Allergies Coded Allergies Type Severity Reaction Last Updated Verified No Known Drug Allergies 02/03/18 No ROS Review of System The patient denies any associated fevers, chills, headache, ear pain, rhinorrhea , sore throat, stiff neck, productive cough, chest pain, shortness of breath, back or flank pain, abdominal pain, nausea, vomiting, diarrhea, constipation, dysuria, rash, numbness, weakness, tingling, incontinence, difficulty ambulating, or diaphoresis. Physical Exam Physical Exam General: Well developed, well nourished, no acute distress, well appearing HEENT: Pupils equally round and reactive to light, EOMI, no discharge, normal conjunctiva Neck: Supple, no nuchal rigidity, no JVD, trachea midline, no tenderness Cardiac: RRR, no murmurs, no gallops, no rubs Chest/Lungs: CTAB, no wheeze, no rhonchi, no crackles Abdomen: soft, non-distended, no guarding, no peritoneal signs, non-tender Back: No tenderness Extremities: no edema, pulses intact, non-tender,capillary refill <3 sec bilateral upper and lower extremities, Neuro: Alert and oriented x 4, no focal deficits, normal speech Vitals Vitals: Vital Signs Date Time Temp Pulse Resp B/P (MAP) Pulse Ox O2 Delivery O2 Flow Rate FiO2 02/04/18 18:00 79 26 178/117 (137) 97 Nasal Cannula 2.0 02/04/18 16:00 98.6 98.6 Labs Labs Laboratory Tests Test 02/03/18 11:49 02/03/18 11:54 02/03/18 14:45 02/03/18 17:00 Glucose (Fingerstick) 108 mg/dL (70-99) White Blood Count 13.8 x10^3/uL (4.0-11.0) Red Blood Count 4.67 x10^6/uL (4.30-5.70) Hemoglobin 14.2 g/dL (13.0-17.5) Hematocrit 41.0 % (39.0-53.0) Mean Corpuscular Volume 88 fL (79-100) Mean Corpuscular Hemoglobin 31 pg (25-35) Mean Corpuscular Hemoglobin Concent 35 g/dL (31-37) Red Cell Distribution Width 14.3 % (11.5-14.5) Platelet Count 303 x10^3/uL (140-400) Neutrophils (%) (Auto) 77 % (31-73) Lymphocytes (%) (Auto) 14 % (24-48) Monocytes (%) (Auto) 8 % (0-9) Eosinophils (%) (Auto) 1 % (0-3) Basophils (%) (Auto) 1 % (0-3) Neutrophils # (Auto) 10.6 x10^3uL (1.8-7.7) Lymphocytes # (Auto) 1.9 x10^3/uL (1.0-4.8) Monocytes # (Auto) 1.1 x10^3/uL (0.0-1.1) Eosinophils # (Auto) 0.1 x10^3/uL (0.0-0.7) Basophils # (Auto) 0.1 x10^3/uL (0.0-0.2) Prothrombin Time 13.4 SEC (11.7-14.0) Prothromb Time International Ratio 1.1 (0.8-1.1) Activated Partial Thromboplast Time 29 SEC (24-38) Sodium Level 141 mmol/L (136-145) Potassium Level 3.9 mmol/L (3.5-5.1) Chloride Level 105 mmol/L (98-107) Carbon Dioxide Level 25 mmol/L (21-32) Anion Gap 11 (6-14) Blood Urea Nitrogen 16 mg/dL (8-26) Creatinine 1.6 mg/dL (0.7-1.3) Estimated GFR (Cockcroft-Gault) 44.9 BUN/Creatinine Ratio 10 (6-20) Glucose Level 118 mg/dL (70-99) Calcium Level 10.4 mg/dL (8.5-10.1) Magnesium Level 1.8 mg/dL (1.8-2.4) Total Bilirubin 0.6 mg/dL (0.2-1.0) Aspartate Amino Transf (AST/SGOT) 49 U/L (15-37) Alanine Aminotransferase (ALT/SGPT) 87 U/L (16-63) Alkaline Phosphatase 63 U/L (46-116) Troponin I Quantitative 0.018 ng/mL (0.000-0.055) Total Protein 8.1 g/dL (6.4-8.2) Albumin 3.8 g/dL (3.4-5.0) Albumin/Globulin Ratio 0.9 (1.0-1.7) Thyroid Stimulating Hormone (TSH) 15.636 uIU/mL (0.358-3.74) Ethyl Alcohol Level < 10 mg/dL (0-10) Nasal Screen MRSA (PCR) Negative (Negative) Urine Collection Type Unknown Urine Color Yellow Urine Clarity Hazy Urine pH 5.5 Urine Specific Dickinson 1.020 Urine Protein Negative mg/dL (NEG-TRACE) Urine Glucose (UA) Negative mg/dL (NEG) Urine Ketones (Stick) Negative mg/dL (NEG) Urine Blood Negative (NEG) Urine Nitrite Negative (NEG) Urine Bilirubin Negative (NEG) Urine Urobilinogen Dipstick 0.2 mg/dL (0.2 mg/dL) Urine Leukocyte Esterase Negative (NEG) Urine RBC Occ /HPF (0-2) Urine WBC 1-4 /HPF (0-4) Urine Squamous Epithelial Cells Few /LPF Urine Bacteria 0 /HPF (0-FEW) Urine Mucus Mod /LPF Urine Opiates Screen Neg (NEG) Urine Methadone Screen Neg (NEG) Urine Barbiturates Neg (NEG) Urine Phencyclidine Screen Neg (NEG) Urine Amphetamine/Methamphetamine Neg (NEG) Urine Benzodiazepines Screen Neg (NEG) Urine Cocaine Screen Neg (NEG) Urine Cannabinoids Screen Neg (NEG) Urine Ethyl Alcohol Neg (NEG) Test 02/04/18 04:30 02/04/18 09:45 White Blood Count 11.9 x10^3/uL (4.0-11.0) Red Blood Count 4.63 x10^6/uL (4.30-5.70) Hemoglobin 13.7 g/dL (13.0-17.5) Hematocrit 41.0 % (39.0-53.0) Mean Corpuscular Volume 89 fL (79-100) Mean Corpuscular Hemoglobin 30 pg (25-35) Mean Corpuscular Hemoglobin Concent 33 g/dL (31-37) Red Cell Distribution Width 14.6 % (11.5-14.5) Platelet Count 305 x10^3/uL (140-400) Neutrophils (%) (Auto) 63 % (31-73) Lymphocytes (%) (Auto) 24 % (24-48) Monocytes (%) (Auto) 10 % (0-9) Eosinophils (%) (Auto) 3 % (0-3) Basophils (%) (Auto) 1 % (0-3) Neutrophils # (Auto) 7.4 x10^3uL (1.8-7.7) Lymphocytes # (Auto) 2.8 x10^3/uL (1.0-4.8) Monocytes # (Auto) 1.2 x10^3/uL (0.0-1.1) Eosinophils # (Auto) 0.3 x10^3/uL (0.0-0.7) Basophils # (Auto) 0.1 x10^3/uL (0.0-0.2) Sodium Level 141 mmol/L (136-145) Potassium Level 4.2 mmol/L (3.5-5.1) Chloride Level 105 mmol/L (98-107) Carbon Dioxide Level 26 mmol/L (21-32) Anion Gap 10 (6-14) Blood Urea Nitrogen 20 mg/dL (8-26) Creatinine 2.0 mg/dL (0.7-1.3) Estimated GFR (Cockcroft-Gault) 34.7 BUN/Creatinine Ratio 10 (6-20) Glucose Level 122 mg/dL (70-99) Calcium Level 9.6 mg/dL (8.5-10.1) Total Bilirubin 0.8 mg/dL (0.2-1.0) Aspartate Amino Transf (AST/SGOT) 57 U/L (15-37) Alanine Aminotransferase (ALT/SGPT) 89 U/L (16-63) Alkaline Phosphatase 62 U/L (46-116) Total Protein 8.0 g/dL (6.4-8.2) Albumin 3.8 g/dL (3.4-5.0) Albumin/Globulin Ratio 0.9 (1.0-1.7) Triglycerides Level 135 mg/dL (0-150) Cholesterol Level 177 mg/dL (0-200) LDL Cholesterol, Calculated 118 mg/dL (0-100) VLDL Cholesterol, Calculated 27 mg/dL (0-40) Non-HDL Cholesterol Calculated 145 mg/dL (0-129) HDL Cholesterol 32 mg/dL (40-60) Cholesterol/HDL Ratio 5.5 Free Thyroxine 0.66 ng/dL (0.76-1.46) Free Triiodothyronine (T3) pg/mL 2.15 pg/mL (2.18-3.98) Urine Opiates Screen Neg (NEG) Urine Methadone Screen Neg (NEG) Urine Barbiturates Neg (NEG) Urine Phencyclidine Screen Neg (NEG) Urine Amphetamine/Methamphetamine Neg (NEG) Urine Benzodiazepines Screen Neg (NEG) Urine Cocaine Screen Neg (NEG) Urine Cannabinoids Screen Neg (NEG) Urine Ethyl Alcohol Neg (NEG) Laboratory Tests Test 02/04/18 04:30 02/04/18 09:45 White Blood Count 11.9 x10^3/uL (4.0-11.0) Red Blood Count 4.63 x10^6/uL (4.30-5.70) Hemoglobin 13.7 g/dL (13.0-17.5) Hematocrit 41.0 % (39.0-53.0) Mean Corpuscular Volume 89 fL (79-100) Mean Corpuscular Hemoglobin 30 pg (25-35) Mean Corpuscular Hemoglobin Concent 33 g/dL (31-37) Red Cell Distribution Width 14.6 % (11.5-14.5) Platelet Count 305 x10^3/uL (140-400) Neutrophils (%) (Auto) 63 % (31-73) Lymphocytes (%) (Auto) 24 % (24-48) Monocytes (%) (Auto) 10 % (0-9) Eosinophils (%) (Auto) 3 % (0-3) Basophils (%) (Auto) 1 % (0-3) Neutrophils # (Auto) 7.4 x10^3uL (1.8-7.7) Lymphocytes # (Auto) 2.8 x10^3/uL (1.0-4.8) Monocytes # (Auto) 1.2 x10^3/uL (0.0-1.1) Eosinophils # (Auto) 0.3 x10^3/uL (0.0-0.7) Basophils # (Auto) 0.1 x10^3/uL (0.0-0.2) Sodium Level 141 mmol/L (136-145) Potassium Level 4.2 mmol/L (3.5-5.1) Chloride Level 105 mmol/L (98-107) Carbon Dioxide Level 26 mmol/L (21-32) Anion Gap 10 (6-14) Blood Urea Nitrogen 20 mg/dL (8-26) Creatinine 2.0 mg/dL (0.7-1.3) Estimated GFR (Cockcroft-Gault) 34.7 BUN/Creatinine Ratio 10 (6-20) Glucose Level 122 mg/dL (70-99) Calcium Level 9.6 mg/dL (8.5-10.1) Total Bilirubin 0.8 mg/dL (0.2-1.0) Aspartate Amino Transf (AST/SGOT) 57 U/L (15-37) Alanine Aminotransferase (ALT/SGPT) 89 U/L (16-63) Alkaline Phosphatase 62 U/L (46-116) Total Protein 8.0 g/dL (6.4-8.2) Albumin 3.8 g/dL (3.4-5.0) Albumin/Globulin Ratio 0.9 (1.0-1.7) Triglycerides Level 135 mg/dL (0-150) Cholesterol Level 177 mg/dL (0-200) LDL Cholesterol, Calculated 118 mg/dL (0-100) VLDL Cholesterol, Calculated 27 mg/dL (0-40) Non-HDL Cholesterol Calculated 145 mg/dL (0-129) HDL Cholesterol 32 mg/dL (40-60) Cholesterol/HDL Ratio 5.5 Free Thyroxine 0.66 ng/dL (0.76-1.46) Free Triiodothyronine (T3) pg/mL 2.15 pg/mL (2.18-3.98) Urine Opiates Screen Neg (NEG) Urine Methadone Screen Neg (NEG) Urine Barbiturates Neg (NEG) Urine Phencyclidine Screen Neg (NEG) Urine Amphetamine/Methamphetamine Neg (NEG) Urine Benzodiazepines Screen Neg (NEG) Urine Cocaine Screen Neg (NEG) Urine Cannabinoids Screen Neg (NEG) Urine Ethyl Alcohol Neg (NEG) SHREYAS SPEARS MD Feb 04, 2018 19:18
--- NOTE | 2018-02-04 19:22 | PDOC ---
PROGRESS NOTES Assessment Assessment Right BG ICH. Cerebral edema. Headaches. Hypertensive emergency, BP 237/115 mmHg. Hypertensive encephalopathy. Metabolic encephalopathy. Left side weakness. Slurred speech. Elevated hepatic enzymes. HLD. Renal insufficiency. Hypothyroidism, TSH 15.636 RECOMMENDATIONS/PLAN: Continue life support in ICU. Zocor 20 mg HS. Avoid antiplatelet and anticoagulant agents. BP control. Repeat HCT w/o contrast if condition worse. Treat medical diseases. Treat thyroid disease per medical team. HISTORY OF THE PRESENT ILLNESS: 57-y-old male patient without knowing his health condition developed headaches, slurred speech, left side weakness and he was brought to the ER of [facility] on . His HCT reveled right BG hemorrhage. His BP was high round 237/115 mmHg. PAST MEDICAL HISTORY Cardiovascular: Hyperlipidemia Pulmonary: No pertinent hx CENTRAL NERVOUS SYSTEM: Other (no pertinent hx) GI: No pertinent hx Heme/Onc: No pertinent hx Hepatobiliary: No pertinent hx Psych: No pertinent hx Musculoskeletal: Other (no pertinent hx) Rheumatologic: Gout Infectious disease: No pertinent hx ENT: No pertinent hx Renal/: No pertinent hx Endocrine: No pertinent hx Dermatology: No pertinent hx PAST SURGICAL HISTORY No pertinent history FAMILY HISTORY Hypertension PAST SURGERY HISTORY: No major surgery recently. ALLERGY: Unknown MEDICATIONS: Refer to [facility] SOCIAL HISTORY: Denies current smoking and illicit drug use. Unknown his drinking status. REVIEW OF SYSTEMS: Constitutional: Obesity. Head: No recent traumatic brain or head injury. Skin: No edema, or rash. Ear: No infection, tinnitus. Eyes: No vision loss or color blindness. Nose: No bleeding or purulent discharges. Hearing: No hearing decrease. Neck: No injury. Cardiac: HTN. Pulmonary: No COPD. GI: No GI ulcer, GI bleeding. Urinary/genital: No dysuria, incontinence, urinary retention. Endocrinologic: Diabetes Mellitus, obesity. Skeletomuscular: No muscular atrophy, deformity. Neurological: see HP. Psychiatric: Denies drug use/abuse. Otherwise, not [id number] review of systems. PHYSICAL EXAMINATION: General appearance is in acute distress. HEENT: Normocephalic and nontraumatic. Eyes, nose, ears, and throat are unremarkable. Neck is supple. No lymphadenopathy. No crepitus. Cardiovascular: S1, S2, regular rate and rhythm. Pulmonary: Clear to auscultation bilaterally. Abdomen: Bowel sounds are positive. Abdomen is soft, nontender, and nondistended. Extremities: No rash or edema. NEUROLOGICAL EXAMINATION: Drowsiness. Able to follow commands. Not fully oriented to time, but knew place and person. PERRL. EOMI. CN: no focal findings. Muscle tone: within normal. Muscle strength: 5 right side, 4 distal left UE. DTR:1- 2 Plantar reflex: Neutral response bilaterally Gait: not examined in bed. Sensory exam: no abnormal findings. No other cerebellar signs elicited. F-T-N test not performed due to not follow commands. Objective Objective Vital Signs Date Time Temp Pulse Resp B/P (MAP) Pulse Ox O2 Delivery O2 Flow Rate FiO2 02/04/18 18:00 79 26 178/117 (137) 97 Nasal Cannula 2.0 02/04/18 16:00 98.6 98.6 Intake and Output 02/04/18 07:00 Intake Total 510 ml Output Total 200 ml Balance 310 ml IV Total 510 ml Output Urine Total 200 ml Vitals Signs Vitals VS - Last 72 Hours, by Label Date Time Temp Pulse Resp B/P (MAP) Pulse Ox O2 Delivery O2 Flow Rate FiO2 02/04/18 18:00 79 26 178/117 (137) 97 Nasal Cannula 2.0 02/04/18 17:32 80 178/117 02/04/18 17:32 80 178/117 02/04/18 17:00 78 21 144/85 (104) 95 Nasal Cannula 2.0 02/04/18 16:00 98.6 72 22 147/85 (105) 98 Nasal Cannula 2.0 98.6 02/04/18 16:00 Nasal Cannula 2.0 02/04/18 15:00 70 21 155/81 (105) 97 Nasal Cannula 2.0 02/04/18 14:45 80 22 147/82 (103) 95 Nasal Cannula 2.0 02/04/18 14:25 68 22 131/80 (97) 95 Nasal Cannula 2.0 02/04/18 14:00 76 16 163/83 (109) 98 Nasal Cannula 2.0 02/04/18 13:00 77 15 160/75 (103) 96 Nasal Cannula 2.0 02/04/18 12:45 82 17 164/79 (107) 98 Nasal Cannula 2.0 02/04/18 12:00 90 17 185/90 (121) 97 Nasal Cannula 2.0 02/04/18 12:00 Nasal Cannula 2.0 02/04/18 11:00 74 16 175/84 (114) 98 Nasal Cannula 2.0 02/04/18 10:09 90 136/89 02/04/18 10:00 91 17 136/86 (103) 97 Nasal Cannula 2.0 02/04/18 09:00 73 19 142/81 (101) 98 Nasal Cannula 2.0 02/04/18 08:00 Nasal Cannula 2.0 02/04/18 08:00 98.2 74 18 163/96 (118) 97 Nasal Cannula 2.0 98.2 02/04/18 07:00 70 22 147/79 (101) 97 Nasal Cannula 2.0 02/04/18 06:00 68 20 161/77 (105) 95 Nasal Cannula 2.0 02/04/18 05:00 66 20 150/74 (99) 96 Nasal Cannula 2.0 02/04/18 04:00 Room Air 02/04/18 04:00 99.2 70 26 120/67 (84) 94 Nasal Cannula 2.0 99.2 02/04/18 03:00 75 14 145/67 (93) 97 Nasal Cannula 2.0 02/04/18 02:00 75 22 142/73 (96) 96 Nasal Cannula 2.0 02/04/18 01:00 75 23 140/77 (98) 98 Nasal Cannula 2.0 02/04/18 00:00 99.5 88 22 120/77 (91) 96 Room Air 99.5 02/03/18 23:59 Room Air 02/03/18 23:00 73 26 130/82 (98) 94 Room Air 02/03/18 22:30 79 153/76 02/03/18 22:00 90 30 153/76 (101) 97 Room Air 02/03/18 21:00 80 18 157/91 (113) 95 Room Air 02/03/18 20:00 Room Air 02/03/18 20:00 78 22 167/75 (105) 95 Room Air 02/03/18 19:00 99.2 76 12 150/78 (102) 97 Room Air 99.2 02/03/18 18:00 76 18 121/66 (84) 96 Room Air 02/03/18 17:00 82 24 161/81 (107) 96 Room Air 02/03/18 16:00 Room Air 02/03/18 16:00 76 21 154/68 (96) 95 Room Air 02/03/18 15:15 74 21 157/68 (97) 95 Room Air 02/03/18 15:00 76 19 165/81 (109) 96 Room Air 02/03/18 14:45 Room Air 02/03/18 14:45 98.3 82 19 163/77 (105) 98 Room Air 98.3 02/03/18 14:15 77 18 154/77 (102) 96 Room Air 02/03/18 14:00 74 18 149/81 (103) 96 Room Air 02/03/18 13:45 74 18 158/92 (114) 97 Room Air 02/03/18 13:30 76 18 149/89 (109) 97 Room Air 02/03/18 13:15 72 18 175/82 (113) 98 Room Air 02/03/18 13:00 76 18 191/92 (125) 95 Room Air 02/03/18 12:45 70 18 195/90 (125) 96 Room Air 02/03/18 12:30 74 18 197/122 (147) 95 Room Air 02/03/18 12:26 80 237/115 02/03/18 12:15 82 18 234/109 (150) 97 Room Air 02/03/18 12:00 80 18 233/103 (146) 97 Room Air 02/03/18 11:58 98.4 84 20 221/125 (157) 98 Room Air 98.4 Laboratory Laboratory Laboratory Tests Test 02/04/18 04:30 02/04/18 09:45 White Blood Count 11.9 x10^3/uL (4.0-11.0) Red Blood Count 4.63 x10^6/uL (4.30-5.70) Hemoglobin 13.7 g/dL (13.0-17.5) Hematocrit 41.0 % (39.0-53.0) Mean Corpuscular Volume 89 fL (79-100) Mean Corpuscular Hemoglobin 30 pg (25-35) Mean Corpuscular Hemoglobin Concent 33 g/dL (31-37) Red Cell Distribution Width 14.6 % (11.5-14.5) Platelet Count 305 x10^3/uL (140-400) Neutrophils (%) (Auto) 63 % (31-73) Lymphocytes (%) (Auto) 24 % (24-48) Monocytes (%) (Auto) 10 % (0-9) Eosinophils (%) (Auto) 3 % (0-3) Basophils (%) (Auto) 1 % (0-3) Neutrophils # (Auto) 7.4 x10^3uL (1.8-7.7) Lymphocytes # (Auto) 2.8 x10^3/uL (1.0-4.8) Monocytes # (Auto) 1.2 x10^3/uL (0.0-1.1) Eosinophils # (Auto) 0.3 x10^3/uL (0.0-0.7) Basophils # (Auto) 0.1 x10^3/uL (0.0-0.2) Sodium Level 141 mmol/L (136-145) Potassium Level 4.2 mmol/L (3.5-5.1) Chloride Level 105 mmol/L (98-107) Carbon Dioxide Level 26 mmol/L (21-32) Anion Gap 10 (6-14) Blood Urea Nitrogen 20 mg/dL (8-26) Creatinine 2.0 mg/dL (0.7-1.3) Estimated GFR (Cockcroft-Gault) 34.7 BUN/Creatinine Ratio 10 (6-20) Glucose Level 122 mg/dL (70-99) Calcium Level 9.6 mg/dL (8.5-10.1) Total Bilirubin 0.8 mg/dL (0.2-1.0) Aspartate Amino Transf (AST/SGOT) 57 U/L (15-37) Alanine Aminotransferase (ALT/SGPT) 89 U/L (16-63) Alkaline Phosphatase 62 U/L (46-116) Total Protein 8.0 g/dL (6.4-8.2) Albumin 3.8 g/dL (3.4-5.0) Albumin/Globulin Ratio 0.9 (1.0-1.7) Triglycerides Level 135 mg/dL (0-150) Cholesterol Level 177 mg/dL (0-200) LDL Cholesterol, Calculated 118 mg/dL (0-100) VLDL Cholesterol, Calculated 27 mg/dL (0-40) Non-HDL Cholesterol Calculated 145 mg/dL (0-129) HDL Cholesterol 32 mg/dL (40-60) Cholesterol/HDL Ratio 5.5 Free Thyroxine 0.66 ng/dL (0.76-1.46) Free Triiodothyronine (T3) pg/mL 2.15 pg/mL (2.18-3.98) Urine Opiates Screen Neg (NEG) Urine Methadone Screen Neg (NEG) Urine Barbiturates Neg (NEG) Urine Phencyclidine Screen Neg (NEG) Urine Amphetamine/Methamphetamine Neg (NEG) Urine Benzodiazepines Screen Neg (NEG) Urine Cocaine Screen Neg (NEG) Urine Cannabinoids Screen Neg (NEG) Urine Ethyl Alcohol Neg (NEG) Medication Medications Current Medications Amlodipine Besylate (Norvasc) 5 mg DAILY PO Last administered on 02/04/18at 17: 32; Start 02/04/18 at 18:00 Labetalol HCl (Normodyne Iv Push) 20 mg PRN Q2HR PRN IVP HYPERTENSION, SEE COMMENTS Last administered on 02/04/18at 17:32; Start 02/04/18 at 13:15 Labetalol HCl (Normodyne Iv Push) 20 mg PRN Q2HR PRN IVP HYPERTENSION, SEE COMMENTS; Start 02/04/18 at 13:45; Stop 02/04/18 at 13:46; Status DC Metoprolol Succinate (Toprol Xl) 25 mg DAILY PO Last administered on at 10:09; Start 02/03/18 at 22:30 Simvastatin (Zocor) 20 mg HS PO ; Start 02/04/18 at 21:00 Comment Review of Relevant I have reviewed the following items wayne (where applicable) has been applied. SHREYAS SPEARS MD Feb 04, 2018 19:22
[2018-02-04] MEDS: SIMVASTATIN 20 MG TABLET PO SCH (20:38)
--- NOTE | 2018-02-04 21:51 | CONS ---
DATE OF CONSULTATION: 02/04/2018 ATTENDING PHYSICIAN: Dr. Helm. REASON FOR CONSULTATION: The patient seen in pulmonary consultation at the request of Dr. Helm for acute respiratory failure. HISTORY OF PRESENT ILLNESS: The patient is a 57-year-old white male that presented to the Emergency Room with left-sided weakness, headache, slurred speech. The patient was evaluated and found to have an intraparenchymal hemorrhage in the right basal ganglia with mild associated edema. He was short of breath and he was hypoxic. They placed him on oxygen. I was asked to see him in consultation. The patient has been seen by Neurosurgery. He is currently not a surgical candidate. Repeat CT head is pending. His blood pressure was elevated. He has been seen by Cardiology for the malignant hypertension. PAST MEDICAL HISTORY: Remarkable for hyperlipidemia, gout. PAST SURGICAL HISTORY: No recent major surgeries. ALLERGIES: No known drug allergies. REVIEW OF SYSTEMS: As indicated above. Otherwise, a 10-point system was reviewed and negative. PHYSICAL EXAMINATION: GENERAL: The patient was in the intensive care unit. He was in no respiratory distress. VITAL SIGNS: Stable. O2 saturation was greater than 92% on 2 liters. HEENT: Eyes, the sclerae were nonicteric. NECK: Jugular venous distention was not elevated. No lymphadenopathy. CHEST: Full expansion. LUNGS: Adequate airway flow with no wheezes. CARDIOVASCULAR: Regular rate and rhythm with S1, S2, no S3. ABDOMEN: Soft, nontender, nondistended. EXTREMITIES: No clubbing, cyanosis or edema. NEUROLOGIC: The patient was awake, alert, following commands. A detailed neuro exam was not performed. IMPRESSION: 1. Acute hypoxemic respiratory failure. 2. Right basal ganglia intraparenchymal hemorrhage. 3. Malignant hypertension. 4. Acute kidney injury. 5. Hyperlipidemia. 6. Hypothyroidism. 7. Clinical presentation compatible with obstructive sleep apnea. PLAN: 1. Continue oxygen supplementation. 2. Baseline chest x-ray. 3. Outpatient polysomnogram. 4. Follow Neurosurgery input. 5. Follow Cardiology input. I do appreciate the privilege in sharing in the patient's care. KELLIE MIRANDA MD DR: AMOR/evy JOB#: [id number] / [id number]
[2018-02-05] VITALS (14 sets, daily range): BP systolic 119–179; BP diastolic 60–85
[2018-02-05] MEDS: LABETALOL 20 MG/4 ML DISP.SYRIN. IVP PRN ×4 (03:45→20:20)
[2018-02-05] MEDS: amLODIPine BESYLATE 5 MG TABLET PO SCH (08:43)
[2018-02-05] MEDS: METOPROLOL SUCC 24HR ER 25 MG TAB.ER.24H. PO SCH (08:43)
--- NOTE | 2018-02-05 09:57 | PDOC ---
PROGRESS NOTES Chief Complaint Chief Complaint Intraparenchymal hemorrhage of the right basal ganglia with mild associated edema Hypertensive crisis Headache, secondary to above morbid obesity possible JOES, secondary to above History of Present Illness History of Present Illness pt. seen and examined in ICU Talked with nursing Vitals Vitals Vital Signs Date Time Temp Pulse Resp B/P (MAP) Pulse Ox O2 Delivery O2 Flow Rate FiO2 02/05/18 08:43 78 160/73 02/05/18 08:00 Nasal Cannula 2.0 02/05/18 07:00 98.7 99 98.7 02/05/18 06:00 20 Physical Exam General: Alert, Oriented X3, Cooperative, No acute distress Heart: Regular rate, Normal S1, Normal S2 Lungs: Clear Abdomen: Soft, Other (obese ) Extremities: No edema, Normal pulses Skin: No breakdown, No significant lesion Review of Systems Review of Systems denies shortness of breath denies vision changes Assessment and Plan Assessmemt and Plan Assessment Intraparenchymal hemorrhage of the right basal ganglia with mild associated edema Hypertensive crisis Headache, secondary to above morbid obesity possible JOSE, secondary to above Plan ICU monitoring Neurology and Neurosurgery on board Pulm on board Head CT shows stable lesion, F/u CT PRN npo IV fluid and BP support Transfer out of ICU soon Comment Review of Relevant I have reviewed the following items wayne (where applicable) has been applied. Labs Laboratory Tests Test 02/03/18 11:49 02/03/18 11:54 02/03/18 14:45 02/03/18 17:00 Glucose (Fingerstick) 108 mg/dL (70-99) White Blood Count 13.8 x10^3/uL (4.0-11.0) Red Blood Count 4.67 x10^6/uL (4.30-5.70) Hemoglobin 14.2 g/dL (13.0-17.5) Hematocrit 41.0 % (39.0-53.0) Mean Corpuscular Volume 88 fL (79-100) Mean Corpuscular Hemoglobin 31 pg (25-35) Mean Corpuscular Hemoglobin Concent 35 g/dL (31-37) Red Cell Distribution Width 14.3 % (11.5-14.5) Platelet Count 303 x10^3/uL (140-400) Neutrophils (%) (Auto) 77 % (31-73) Lymphocytes (%) (Auto) 14 % (24-48) Monocytes (%) (Auto) 8 % (0-9) Eosinophils (%) (Auto) 1 % (0-3) Basophils (%) (Auto) 1 % (0-3) Neutrophils # (Auto) 10.6 x10^3uL (1.8-7.7) Lymphocytes # (Auto) 1.9 x10^3/uL (1.0-4.8) Monocytes # (Auto) 1.1 x10^3/uL (0.0-1.1) Eosinophils # (Auto) 0.1 x10^3/uL (0.0-0.7) Basophils # (Auto) 0.1 x10^3/uL (0.0-0.2) Prothrombin Time 13.4 SEC (11.7-14.0) Prothromb Time International Ratio 1.1 (0.8-1.1) Activated Partial Thromboplast Time 29 SEC (24-38) Sodium Level 141 mmol/L (136-145) Potassium Level 3.9 mmol/L (3.5-5.1) Chloride Level 105 mmol/L (98-107) Carbon Dioxide Level 25 mmol/L (21-32) Anion Gap 11 (6-14) Blood Urea Nitrogen 16 mg/dL (8-26) Creatinine 1.6 mg/dL (0.7-1.3) Estimated GFR (Cockcroft-Gault) 44.9 BUN/Creatinine Ratio 10 (6-20) Glucose Level 118 mg/dL (70-99) Calcium Level 10.4 mg/dL (8.5-10.1) Magnesium Level 1.8 mg/dL (1.8-2.4) Total Bilirubin 0.6 mg/dL (0.2-1.0) Aspartate Amino Transf (AST/SGOT) 49 U/L (15-37) Alanine Aminotransferase (ALT/SGPT) 87 U/L (16-63) Alkaline Phosphatase 63 U/L (46-116) Troponin I Quantitative 0.018 ng/mL (0.000-0.055) Total Protein 8.1 g/dL (6.4-8.2) Albumin 3.8 g/dL (3.4-5.0) Albumin/Globulin Ratio 0.9 (1.0-1.7) Thyroid Stimulating Hormone (TSH) 15.636 uIU/mL (0.358-3.74) Ethyl Alcohol Level < 10 mg/dL (0-10) Nasal Screen MRSA (PCR) Negative (Negative) Urine Collection Type Unknown Urine Color Yellow Urine Clarity Hazy Urine pH 5.5 Urine Specific [place] 1.020 Urine Protein Negative mg/dL (NEG-TRACE) Urine Glucose (UA) Negative mg/dL (NEG) Urine Ketones (Stick) Negative mg/dL (NEG) Urine Blood Negative (NEG) Urine Nitrite Negative (NEG) Urine Bilirubin Negative (NEG) Urine Urobilinogen Dipstick 0.2 mg/dL (0.2 mg/dL) Urine Leukocyte Esterase Negative (NEG) Urine RBC Occ /HPF (0-2) Urine WBC 1-4 /HPF (0-4) Urine Squamous Epithelial Cells Few /LPF Urine Bacteria 0 /HPF (0-FEW) Urine Mucus Mod /LPF Urine Opiates Screen Neg (NEG) Urine Methadone Screen Neg (NEG) Urine Barbiturates Neg (NEG) Urine Phencyclidine Screen Neg (NEG) Urine Amphetamine/Methamphetamine Neg (NEG) Urine Benzodiazepines Screen Neg (NEG) Urine Cocaine Screen Neg (NEG) Urine Cannabinoids Screen Neg (NEG) Urine Ethyl Alcohol Neg (NEG) Test 02/04/18 04:30 02/04/18 09:45 White Blood Count 11.9 x10^3/uL (4.0-11.0) Red Blood Count 4.63 x10^6/uL (4.30-5.70) Hemoglobin 13.7 g/dL (13.0-17.5) Hematocrit 41.0 % (39.0-53.0) Mean Corpuscular Volume 89 fL (79-100) Mean Corpuscular Hemoglobin 30 pg (25-35) Mean Corpuscular Hemoglobin Concent 33 g/dL (31-37) Red Cell Distribution Width 14.6 % (11.5-14.5) Platelet Count 305 x10^3/uL (140-400) Neutrophils (%) (Auto) 63 % (31-73) Lymphocytes (%) (Auto) 24 % (24-48) Monocytes (%) (Auto) 10 % (0-9) Eosinophils (%) (Auto) 3 % (0-3) Basophils (%) (Auto) 1 % (0-3) Neutrophils # (Auto) 7.4 x10^3uL (1.8-7.7) Lymphocytes # (Auto) 2.8 x10^3/uL (1.0-4.8) Monocytes # (Auto) 1.2 x10^3/uL (0.0-1.1) Eosinophils # (Auto) 0.3 x10^3/uL (0.0-0.7) Basophils # (Auto) 0.1 x10^3/uL (0.0-0.2) Sodium Level 141 mmol/L (136-145) Potassium Level 4.2 mmol/L (3.5-5.1) Chloride Level 105 mmol/L (98-107) Carbon Dioxide Level 26 mmol/L (21-32) Anion Gap 10 (6-14) Blood Urea Nitrogen 20 mg/dL (8-26) Creatinine 2.0 mg/dL (0.7-1.3) Estimated GFR (Cockcroft-Gault) 34.7 BUN/Creatinine Ratio 10 (6-20) Glucose Level 122 mg/dL (70-99) Calcium Level 9.6 mg/dL (8.5-10.1) Total Bilirubin 0.8 mg/dL (0.2-1.0) Aspartate Amino Transf (AST/SGOT) 57 U/L (15-37) Alanine Aminotransferase (ALT/SGPT) 89 U/L (16-63) Alkaline Phosphatase 62 U/L (46-116) Total Protein 8.0 g/dL (6.4-8.2) Albumin 3.8 g/dL (3.4-5.0) Albumin/Globulin Ratio 0.9 (1.0-1.7) Triglycerides Level 135 mg/dL (0-150) Cholesterol Level 177 mg/dL (0-200) LDL Cholesterol, Calculated 118 mg/dL (0-100) VLDL Cholesterol, Calculated 27 mg/dL (0-40) Non-HDL Cholesterol Calculated 145 mg/dL (0-129) HDL Cholesterol 32 mg/dL (40-60) Cholesterol/HDL Ratio 5.5 Free Thyroxine 0.66 ng/dL (0.76-1.46) Free Triiodothyronine (T3) pg/mL 2.15 pg/mL (2.18-3.98) Urine Opiates Screen Neg (NEG) Urine Methadone Screen Neg (NEG) Urine Barbiturates Neg (NEG) Urine Phencyclidine Screen Neg (NEG) Urine Amphetamine/Methamphetamine Neg (NEG) Urine Benzodiazepines Screen Neg (NEG) Urine Cocaine Screen Neg (NEG) Urine Cannabinoids Screen Neg (NEG) Urine Ethyl Alcohol Neg (NEG) Medications Current Medications Labetalol HCl (Normodyne Iv Push) 20 mg 1X ONCE IVP Last administered on 02/03at 12:26; Start 02/03/18 at 12:15; Stop 02/03/18 at 12:16; Status DC Nicardipine HCl 50 mg/Sodium Chloride 270 ml @ 27 mls/hr CONT PRN IV SEE I/O RECORD Last administered on 02/04/18at 22:26; Start 02/03/18 at 12:30 Ondansetron HCl (Zofran) 4 mg PRN Q8HRS PRN IV NAUSEA/VOMITING; Start at 13:15; Stop 02/04/18 at 13:14; Status DC Fentanyl Citrate (Fentanyl 2ml Vial) 50 mcg PRN Q1HR PRN IV PAIN; Start at 13:15; Stop 02/04/18 at 13:14; Status DC Metoprolol Succinate (Toprol Xl) 25 mg DAILY PO Last administered on at 08:43; Start 02/03/18 at 22:30 Simvastatin (Zocor) 20 mg HS PO Last administered on 02/04/18at 20:38; Start 02/04/18 at 21:00 Labetalol HCl (Normodyne Iv Push) 20 mg PRN Q2HR PRN IVP HYPERTENSION, SEE COMMENTS Last administered on 02/05/18at 03:45; Start 02/04/18 at 13:15 Labetalol HCl (Normodyne Iv Push) 20 mg PRN Q2HR PRN IVP HYPERTENSION, SEE COMMENTS; Start 02/04/18 at 13:45; Stop 02/04/18 at 13:46; Status DC Amlodipine Besylate (Norvasc) 5 mg DAILY PO Last administered on 02/05/18at 08: 43; Start 02/04/18 at 18:00 Vitals/I & O Vital Sign - Last 24 Hours 02/04/18 02/04/18 02/04/18 02/04/18 10:00 10:09 11:00 12:00 Pulse 91 90 74 Resp 17 16 B/P (MAP) 136/86 (103) 136/89 175/84 (114) Pulse Ox 97 98 O2 Delivery Nasal Cannula Nasal Cannula Nasal Cannula O2 Flow Rate 2.0 2.0 2.0 02/04/18 02/04/1818 02/04/18 12:00 12:45 13:00 14:00 Pulse 90 82 77 76 Resp 17 17 15 16 B/P (MAP) 185/90 (121) 164/79 (107) 160/75 (103) 163/83 (109) Pulse Ox 97 98 96 98 O2 Delivery Nasal Cannula Nasal Cannula Nasal Cannula Nasal Cannula O2 Flow Rate 2.0 2.0 2.0 2.0 02/04/18 02/04/18 02/04/18 02/04/18 14:25 14:45 15:00 16:00 Pulse 68 80 70 Resp 22 22 21 B/P (MAP) 131/80 (97) 147/82 (103) 155/81 (105) Pulse Ox 95 95 97 O2 Delivery Nasal Cannula Nasal Cannula Nasal Cannula Nasal Cannula O2 Flow Rate 2.0 2.0 2.0 2.0 02/04/1818 02/04/18 02/04/18 16:00 17:00 17:32 17:32 Temp 98.6 98.6 Pulse 72 78 80 80 Resp 21 B/P (MAP) 147/85 (105) 144/85 (104) 178/117 178/117 Pulse Ox 98 95 O2 Delivery Nasal Cannula Nasal Cannula O2 Flow Rate 2.0 2.0 02/04/18 02/04/18 02/04/18 02/04/18 18:00 19:00 20:00 20:00 Temp 99.1 99.1 Pulse 79 69 82 Resp 26 22 24 B/P (MAP) 178/117 (137) 158/77 (104) 151/74 (99) Pulse Ox 97 97 96 O2 Delivery Nasal Cannula Nasal Cannula Nasal Cannula Nasal Cannula O2 Flow Rate 2.0 2.0 2.0 2.0 02/04/1818 18 02/04/18 21:00 22:00 22:12 23:00 Pulse 78 81 81 75 Resp 22 23 27 B/P (MAP) 153/71 (98) 166/70 (102) 166/71 154/69 (97) Pulse Ox 95 95 96 O2 Delivery Nasal Cannula Nasal Cannula Nasal Cannula O2 Flow Rate 2.0 2.0 2.0 02/05/18 02/05/18 02/05/18 02/05/18 00:00 00:00 01:00 02:00 Temp 99.8 99.8 Pulse 78 80 90 Resp 24 23 38 B/P (MAP) 154/75 (101) 159/79 (105) 146/79 (101) Pulse Ox 96 97 97 O2 Delivery Nasal Cannula Nasal Cannula Nasal Cannula Nasal Cannula O2 Flow Rate 2.0 2.0 2.0 2.0 02/05/18 02/05/18 02/05/18 02/05/18 03:00 03:45 04:00 04:00 Temp 98.7 98.7 Pulse 81 80 78 Resp 24 35 B/P (MAP) 144/85 (104) 171/81 174/82 (112) Pulse Ox 94 94 O2 Delivery Nasal Cannula Nasal Cannula Nasal Cannula O2 Flow Rate 2.0 2.0 2.0 02/05/18 02/05/18 02/05/18 02/05/18 05:00 06:00 07:00 08:00 Temp 98.7 98.7 Pulse 72 70 70 Resp 29 20 B/P (MAP) 140/76 (97) 133/69 (90) 160/73 (102) Pulse Ox 96 99 99 O2 Delivery Nasal Cannula Nasal Cannula Nasal Cannula Nasal Cannula O2 Flow Rate 2.0 2.0 2.0 2.0 02/05/18 02/05/18 08:43 08:43 Pulse 78 78 B/P (MAP) 160/73 160/73 Intake and Output 02/04/18 02/04/18 02/05/18 15:00 23:00 07:00 Intake Total 550 ml 579 ml Output Total 550 ml 400 ml 380 ml Balance 0 ml -400 ml 199 ml STANISLAW ARCHER III DO Feb 05, 2018 09:57
--- NOTE | 2018-02-05 10:27 | PDOC ---
PULMONARY PROGRESS NOTES Subjective PT NOT MORE SOA OFF 02 Vitals Vital Signs Date Time Temp Pulse Resp B/P (MAP) Pulse Ox O2 Delivery O2 Flow Rate FiO2 02/05/18 08:43 78 160/73 02/05/18 08:00 Nasal Cannula 2.0 02/05/18 07:00 98.7 99 98.7 02/05/18 06:00 20 Lungs: Clear Cardiovascular: S1 Abdomen: Soft Neuro Exam: Alert Extremities: No Edema Skin: Warm Labs Laboratory Tests Test 02/03/18 11:49 02/03/18 11:54 02/03/18 14:45 02/03/18 17:00 Glucose (Fingerstick) 108 mg/dL (70-99) White Blood Count 13.8 x10^3/uL (4.0-11.0) Red Blood Count 4.67 x10^6/uL (4.30-5.70) Hemoglobin 14.2 g/dL (13.0-17.5) Hematocrit 41.0 % (39.0-53.0) Mean Corpuscular Volume 88 fL (79-100) Mean Corpuscular Hemoglobin 31 pg (25-35) Mean Corpuscular Hemoglobin Concent 35 g/dL (31-37) Red Cell Distribution Width 14.3 % (11.5-14.5) Platelet Count 303 x10^3/uL (140-400) Neutrophils (%) (Auto) 77 % (31-73) Lymphocytes (%) (Auto) 14 % (24-48) Monocytes (%) (Auto) 8 % (0-9) Eosinophils (%) (Auto) 1 % (0-3) Basophils (%) (Auto) 1 % (0-3) Neutrophils # (Auto) 10.6 x10^3uL (1.8-7.7) Lymphocytes # (Auto) 1.9 x10^3/uL (1.0-4.8) Monocytes # (Auto) 1.1 x10^3/uL (0.0-1.1) Eosinophils # (Auto) 0.1 x10^3/uL (0.0-0.7) Basophils # (Auto) 0.1 x10^3/uL (0.0-0.2) Prothrombin Time 13.4 SEC (11.7-14.0) Prothromb Time International Ratio 1.1 (0.8-1.1) Activated Partial Thromboplast Time 29 SEC (24-38) Sodium Level 141 mmol/L (136-145) Potassium Level 3.9 mmol/L (3.5-5.1) Chloride Level 105 mmol/L (98-107) Carbon Dioxide Level 25 mmol/L (21-32) Anion Gap 11 (6-14) Blood Urea Nitrogen 16 mg/dL (8-26) Creatinine 1.6 mg/dL (0.7-1.3) Estimated GFR (Cockcroft-Gault) 44.9 BUN/Creatinine Ratio 10 (6-20) Glucose Level 118 mg/dL (70-99) Calcium Level 10.4 mg/dL (8.5-10.1) Magnesium Level 1.8 mg/dL (1.8-2.4) Total Bilirubin 0.6 mg/dL (0.2-1.0) Aspartate Amino Transf (AST/SGOT) 49 U/L (15-37) Alanine Aminotransferase (ALT/SGPT) 87 U/L (16-63) Alkaline Phosphatase 63 U/L (46-116) Troponin I Quantitative 0.018 ng/mL (0.000-0.055) Total Protein 8.1 g/dL (6.4-8.2) Albumin 3.8 g/dL (3.4-5.0) Albumin/Globulin Ratio 0.9 (1.0-1.7) Thyroid Stimulating Hormone (TSH) 15.636 uIU/mL (0.358-3.74) Ethyl Alcohol Level < 10 mg/dL (0-10) Nasal Screen MRSA (PCR) Negative (Negative) Urine Collection Type Unknown Urine Color Yellow Urine Clarity Hazy Urine pH 5.5 Urine Specific [place] 1.020 Urine Protein Negative mg/dL (NEG-TRACE) Urine Glucose (UA) Negative mg/dL (NEG) Urine Ketones (Stick) Negative mg/dL (NEG) Urine Blood Negative (NEG) Urine Nitrite Negative (NEG) Urine Bilirubin Negative (NEG) Urine Urobilinogen Dipstick 0.2 mg/dL (0.2 mg/dL) Urine Leukocyte Esterase Negative (NEG) Urine RBC Occ /HPF (0-2) Urine WBC 1-4 /HPF (0-4) Urine Squamous Epithelial Cells Few /LPF Urine Bacteria 0 /HPF (0-FEW) Urine Mucus Mod /LPF Urine Opiates Screen Neg (NEG) Urine Methadone Screen Neg (NEG) Urine Barbiturates Neg (NEG) Urine Phencyclidine Screen Neg (NEG) Urine Amphetamine/Methamphetamine Neg (NEG) Urine Benzodiazepines Screen Neg (NEG) Urine Cocaine Screen Neg (NEG) Urine Cannabinoids Screen Neg (NEG) Urine Ethyl Alcohol Neg (NEG) Test 02/04/18 04:30 02/04/18 09:45 White Blood Count 11.9 x10^3/uL (4.0-11.0) Red Blood Count 4.63 x10^6/uL (4.30-5.70) Hemoglobin 13.7 g/dL (13.0-17.5) Hematocrit 41.0 % (39.0-53.0) Mean Corpuscular Volume 89 fL (79-100) Mean Corpuscular Hemoglobin 30 pg (25-35) Mean Corpuscular Hemoglobin Concent 33 g/dL (31-37) Red Cell Distribution Width 14.6 % (11.5-14.5) Platelet Count 305 x10^3/uL (140-400) Neutrophils (%) (Auto) 63 % (31-73) Lymphocytes (%) (Auto) 24 % (24-48) Monocytes (%) (Auto) 10 % (0-9) Eosinophils (%) (Auto) 3 % (0-3) Basophils (%) (Auto) 1 % (0-3) Neutrophils # (Auto) 7.4 x10^3uL (1.8-7.7) Lymphocytes # (Auto) 2.8 x10^3/uL (1.0-4.8) Monocytes # (Auto) 1.2 x10^3/uL (0.0-1.1) Eosinophils # (Auto) 0.3 x10^3/uL (0.0-0.7) Basophils # (Auto) 0.1 x10^3/uL (0.0-0.2) Sodium Level 141 mmol/L (136-145) Potassium Level 4.2 mmol/L (3.5-5.1) Chloride Level 105 mmol/L (98-107) Carbon Dioxide Level 26 mmol/L (21-32) Anion Gap 10 (6-14) Blood Urea Nitrogen 20 mg/dL (8-26) Creatinine 2.0 mg/dL (0.7-1.3) Estimated GFR (Cockcroft-Gault) 34.7 BUN/Creatinine Ratio 10 (6-20) Glucose Level 122 mg/dL (70-99) Calcium Level 9.6 mg/dL (8.5-10.1) Total Bilirubin 0.8 mg/dL (0.2-1.0) Aspartate Amino Transf (AST/SGOT) 57 U/L (15-37) Alanine Aminotransferase (ALT/SGPT) 89 U/L (16-63) Alkaline Phosphatase 62 U/L (46-116) Total Protein 8.0 g/dL (6.4-8.2) Albumin 3.8 g/dL (3.4-5.0) Albumin/Globulin Ratio 0.9 (1.0-1.7) Triglycerides Level 135 mg/dL (0-150) Cholesterol Level 177 mg/dL (0-200) LDL Cholesterol, Calculated 118 mg/dL (0-100) VLDL Cholesterol, Calculated 27 mg/dL (0-40) Non-HDL Cholesterol Calculated 145 mg/dL (0-129) HDL Cholesterol 32 mg/dL (40-60) Cholesterol/HDL Ratio 5.5 Free Thyroxine 0.66 ng/dL (0.76-1.46) Free Triiodothyronine (T3) pg/mL 2.15 pg/mL (2.18-3.98) Urine Opiates Screen Neg (NEG) Urine Methadone Screen Neg (NEG) Urine Barbiturates Neg (NEG) Urine Phencyclidine Screen Neg (NEG) Urine Amphetamine/Methamphetamine Neg (NEG) Urine Benzodiazepines Screen Neg (NEG) Urine Cocaine Screen Neg (NEG) Urine Cannabinoids Screen Neg (NEG) Urine Ethyl Alcohol Neg (NEG) Impression . IMPRESSION: 1. Acute hypoxemic respiratory failure. 2. Right basal ganglia intraparenchymal hemorrhage. 3. Malignant hypertension. 4. Acute kidney injury. 5. Hyperlipidemia. 6. Hypothyroidism. 7. Clinical presentation compatible with obstructive sleep apnea. Plan . FOLLOW NEURO INPUT RESP STATUS IS COMPENSATED WILL NEED A SLEEP STUDY OUT PT KELLIE MIRANDA MD Feb 05, 2018 10:27
--- NOTE | 2018-02-05 11:27 | PDOC ---
PROGRESS NOTES Subjective Subjective sitting up in chair playing cards c/o mild headache Objective Objective Vital Signs Date Time Temp Pulse Resp B/P (MAP) Pulse Ox O2 Delivery O2 Flow Rate FiO2 02/05/18 11:23 78 20 164/84 (110) 99 Nasal Cannula 02/05/18 10:51 98.7 2.0 98.7 Intake and Output 02/05/18 07:00 Intake Total 1129 ml Output Total 1330 ml Balance -201 ml Intake Oral 550 ml IV Total 579 ml Output Urine Total 1330 ml Physical Exam General: Alert, Oriented X3, Cooperative MUSCULOSKELETAL: Other (JEFFRIES) Neuro: Other (left upper extremitiy remains weak, speech improved) Assessment Assessment Problems Medical Problems: (1) Hypertensive emergency Status: Acute (2) Intraparenchymal hemorrhage of brain Status: Acute Plan Plan of Care ok to transfer to floor from NS standpoint BP control PT Comment Review of Relevant I have reviewed the following items wayne (where applicable) has been applied. Labs Laboratory Tests Test 02/03/18 11:49 02/03/18 11:54 02/03/18 14:45 02/03/18 17:00 Glucose (Fingerstick) 108 mg/dL (70-99) White Blood Count 13.8 x10^3/uL (4.0-11.0) Red Blood Count 4.67 x10^6/uL (4.30-5.70) Hemoglobin 14.2 g/dL (13.0-17.5) Hematocrit 41.0 % (39.0-53.0) Mean Corpuscular Volume 88 fL (79-100) Mean Corpuscular Hemoglobin 31 pg (25-35) Mean Corpuscular Hemoglobin Concent 35 g/dL (31-37) Red Cell Distribution Width 14.3 % (11.5-14.5) Platelet Count 303 x10^3/uL (140-400) Neutrophils (%) (Auto) 77 % (31-73) Lymphocytes (%) (Auto) 14 % (24-48) Monocytes (%) (Auto) 8 % (0-9) Eosinophils (%) (Auto) 1 % (0-3) Basophils (%) (Auto) 1 % (0-3) Neutrophils # (Auto) 10.6 x10^3uL (1.8-7.7) Lymphocytes # (Auto) 1.9 x10^3/uL (1.0-4.8) Monocytes # (Auto) 1.1 x10^3/uL (0.0-1.1) Eosinophils # (Auto) 0.1 x10^3/uL (0.0-0.7) Basophils # (Auto) 0.1 x10^3/uL (0.0-0.2) Prothrombin Time 13.4 SEC (11.7-14.0) Prothromb Time International Ratio 1.1 (0.8-1.1) Activated Partial Thromboplast Time 29 SEC (24-38) Sodium Level 141 mmol/L (136-145) Potassium Level 3.9 mmol/L (3.5-5.1) Chloride Level 105 mmol/L (98-107) Carbon Dioxide Level 25 mmol/L (21-32) Anion Gap 11 (6-14) Blood Urea Nitrogen 16 mg/dL (8-26) Creatinine 1.6 mg/dL (0.7-1.3) Estimated GFR (Cockcroft-Gault) 44.9 BUN/Creatinine Ratio 10 (6-20) Glucose Level 118 mg/dL (70-99) Calcium Level 10.4 mg/dL (8.5-10.1) Magnesium Level 1.8 mg/dL (1.8-2.4) Total Bilirubin 0.6 mg/dL (0.2-1.0) Aspartate Amino Transf (AST/SGOT) 49 U/L (15-37) Alanine Aminotransferase (ALT/SGPT) 87 U/L (16-63) Alkaline Phosphatase 63 U/L (46-116) Troponin I Quantitative 0.018 ng/mL (0.000-0.055) Total Protein 8.1 g/dL (6.4-8.2) Albumin 3.8 g/dL (3.4-5.0) Albumin/Globulin Ratio 0.9 (1.0-1.7) Thyroid Stimulating Hormone (TSH) 15.636 uIU/mL (0.358-3.74) Ethyl Alcohol Level < 10 mg/dL (0-10) Nasal Screen MRSA (PCR) Negative (Negative) Urine Collection Type Unknown Urine Color Yellow Urine Clarity Hazy Urine pH 5.5 Urine Specific [place] 1.020 Urine Protein Negative mg/dL (NEG-TRACE) Urine Glucose (UA) Negative mg/dL (NEG) Urine Ketones (Stick) Negative mg/dL (NEG) Urine Blood Negative (NEG) Urine Nitrite Negative (NEG) Urine Bilirubin Negative (NEG) Urine Urobilinogen Dipstick 0.2 mg/dL (0.2 mg/dL) Urine Leukocyte Esterase Negative (NEG) Urine RBC Occ /HPF (0-2) Urine WBC 1-4 /HPF (0-4) Urine Squamous Epithelial Cells Few /LPF Urine Bacteria 0 /HPF (0-FEW) Urine Mucus Mod /LPF Urine Opiates Screen Neg (NEG) Urine Methadone Screen Neg (NEG) Urine Barbiturates Neg (NEG) Urine Phencyclidine Screen Neg (NEG) Urine Amphetamine/Methamphetamine Neg (NEG) Urine Benzodiazepines Screen Neg (NEG) Urine Cocaine Screen Neg (NEG) Urine Cannabinoids Screen Neg (NEG) Urine Ethyl Alcohol Neg (NEG) Test 02/04/18 04:30 02/04/18 09:45 White Blood Count 11.9 x10^3/uL (4.0-11.0) Red Blood Count 4.63 x10^6/uL (4.30-5.70) Hemoglobin 13.7 g/dL (13.0-17.5) Hematocrit 41.0 % (39.0-53.0) Mean Corpuscular Volume 89 fL (79-100) Mean Corpuscular Hemoglobin 30 pg (25-35) Mean Corpuscular Hemoglobin Concent 33 g/dL (31-37) Red Cell Distribution Width 14.6 % (11.5-14.5) Platelet Count 305 x10^3/uL (140-400) Neutrophils (%) (Auto) 63 % (31-73) Lymphocytes (%) (Auto) 24 % (24-48) Monocytes (%) (Auto) 10 % (0-9) Eosinophils (%) (Auto) 3 % (0-3) Basophils (%) (Auto) 1 % (0-3) Neutrophils # (Auto) 7.4 x10^3uL (1.8-7.7) Lymphocytes # (Auto) 2.8 x10^3/uL (1.0-4.8) Monocytes # (Auto) 1.2 x10^3/uL (0.0-1.1) Eosinophils # (Auto) 0.3 x10^3/uL (0.0-0.7) Basophils # (Auto) 0.1 x10^3/uL (0.0-0.2) Sodium Level 141 mmol/L (136-145) Potassium Level 4.2 mmol/L (3.5-5.1) Chloride Level 105 mmol/L (98-107) Carbon Dioxide Level 26 mmol/L (21-32) Anion Gap 10 (6-14) Blood Urea Nitrogen 20 mg/dL (8-26) Creatinine 2.0 mg/dL (0.7-1.3) Estimated GFR (Cockcroft-Gault) 34.7 BUN/Creatinine Ratio 10 (6-20) Glucose Level 122 mg/dL (70-99) Calcium Level 9.6 mg/dL (8.5-10.1) Total Bilirubin 0.8 mg/dL (0.2-1.0) Aspartate Amino Transf (AST/SGOT) 57 U/L (15-37) Alanine Aminotransferase (ALT/SGPT) 89 U/L (16-63) Alkaline Phosphatase 62 U/L (46-116) Total Protein 8.0 g/dL (6.4-8.2) Albumin 3.8 g/dL (3.4-5.0) Albumin/Globulin Ratio 0.9 (1.0-1.7) Triglycerides Level 135 mg/dL (0-150) Cholesterol Level 177 mg/dL (0-200) LDL Cholesterol, Calculated 118 mg/dL (0-100) VLDL Cholesterol, Calculated 27 mg/dL (0-40) Non-HDL Cholesterol Calculated 145 mg/dL (0-129) HDL Cholesterol 32 mg/dL (40-60) Cholesterol/HDL Ratio 5.5 Free Thyroxine 0.66 ng/dL (0.76-1.46) Free Triiodothyronine (T3) pg/mL 2.15 pg/mL (2.18-3.98) Urine Opiates Screen Neg (NEG) Urine Methadone Screen Neg (NEG) Urine Barbiturates Neg (NEG) Urine Phencyclidine Screen Neg (NEG) Urine Amphetamine/Methamphetamine Neg (NEG) Urine Benzodiazepines Screen Neg (NEG) Urine Cocaine Screen Neg (NEG) Urine Cannabinoids Screen Neg (NEG) Urine Ethyl Alcohol Neg (NEG) Medications Current Medications Labetalol HCl (Normodyne Iv Push) 20 mg 1X ONCE IVP Last administered on 02/03at 12:26; Start 02/03/18 at 12:15; Stop 02/03/18 at 12:16; Status DC Nicardipine HCl 50 mg/Sodium Chloride 270 ml @ 27 mls/hr CONT PRN IV SEE I/O RECORD Last administered on 02/04/18at 22:26; Start 02/03/18 at 12:30 Ondansetron HCl (Zofran) 4 mg PRN Q8HRS PRN IV NAUSEA/VOMITING; Start at 13:15; Stop 02/04/18 at 13:14; Status DC Fentanyl Citrate (Fentanyl 2ml Vial) 50 mcg PRN Q1HR PRN IV PAIN; Start at 13:15; Stop 02/04/18 at 13:14; Status DC Metoprolol Succinate (Toprol Xl) 25 mg DAILY PO Last administered on at 08:43; Start 02/03/18 at 22:30 Simvastatin (Zocor) 20 mg HS PO Last administered on 02/04/18at 20:38; Start 02/04/18 at 21:00 Labetalol HCl (Normodyne Iv Push) 20 mg PRN Q2HR PRN IVP HYPERTENSION, SEE COMMENTS Last administered on 02/05/18at 11:05; Start 02/04/18 at 13:15 Labetalol HCl (Normodyne Iv Push) 20 mg PRN Q2HR PRN IVP HYPERTENSION, SEE COMMENTS; Start 02/04/18 at 13:45; Stop 02/04/18 at 13:46; Status DC Amlodipine Besylate (Norvasc) 5 mg DAILY PO Last administered on 02/05/18at 08: 43; Start 02/04/18 at 18:00 Vitals/I & O Vital Sign - Last 24 Hours 02/04/18 02/04/18 02/04/18 02/04/18 12:00 12:00 12:45 13:00 Pulse 90 82 77 Resp 17 17 15 B/P (MAP) 185/90 (121) 164/79 (107) 160/75 (103) Pulse Ox 97 98 96 O2 Delivery Nasal Cannula Nasal Cannula Nasal Cannula Nasal Cannula O2 Flow Rate 2.0 2.0 2.0 2.0 02/04/18 02/04/18 02/04/1818 14:00 14:25 14:45 15:00 Pulse 76 68 80 70 Resp 16 21 B/P (MAP) 163/83 (109) 131/80 (97) 147/82 (103) 155/81 (105) Pulse Ox 98 95 95 97 O2 Delivery Nasal Cannula Nasal Cannula Nasal Cannula Nasal Cannula O2 Flow Rate 2.0 2.0 2.0 2.0 02/04/18 02/04/18 02/04/18 02/04/18 16:00 16:00 17:00 17:32 Temp 98.6 98.6 Pulse 72 78 80 Resp 21 B/P (MAP) 147/85 (105) 144/85 (104) 178/117 Pulse Ox 98 95 O2 Delivery Nasal Cannula Nasal Cannula Nasal Cannula O2 Flow Rate 2.0 2.0 2.0 02/04/18 02/04/18 02/04/18 02/04/18 17:32 18:00 19:00 20:00 Temp 99.1 99.1 Pulse 80 79 69 82 Resp 24 B/P (MAP) 178/117 178/117 (137) 158/77 (104) 151/74 (99) Pulse Ox 97 97 96 O2 Delivery Nasal Cannula Nasal Cannula Nasal Cannula O2 Flow Rate 2.0 2.0 2.0 02/04/18 02/04/18 02/04/18 02/04/18 20:00 21:00 22:00 22:12 Pulse 78 81 81 Resp 23 B/P (MAP) 153/71 (98) 166/70 (102) 166/71 Pulse Ox 95 95 O2 Delivery Nasal Cannula Nasal Cannula Nasal Cannula O2 Flow Rate 2.0 2.0 2.0 02/04/18 02/05/18 02/05/18 02/05/18 23:00 00:00 00:00 01:00 Temp 99.8 99.8 Pulse 75 78 80 Resp 23 B/P (MAP) 154/69 (97) 154/75 (101) 159/79 (105) Pulse Ox 96 96 97 O2 Delivery Nasal Cannula Nasal Cannula Nasal Cannula Nasal Cannula O2 Flow Rate 2.0 2.0 2.0 2.0 02/05/18 02/05/18 02/05/18 02/05/18 02:00 03:00 03:45 04:00 Pulse 90 81 80 Resp 38 24 B/P (MAP) 146/79 (101) 144/85 (104) 171/81 Pulse Ox 97 94 O2 Delivery Nasal Cannula Nasal Cannula Nasal Cannula O2 Flow Rate 2.0 2.0 2.0 02/05/18 02/05/18 02/05/18 02/05/18 04:00 05:00 06:00 07:00 Temp 98.7 98.7 98.7 98.7 Pulse 78 72 70 70 Resp 35 29 20 B/P (MAP) 174/82 (112) 140/76 (97) 133/69 (90) 160/73 (102) Pulse Ox 94 96 99 99 O2 Delivery Nasal Cannula Nasal Cannula Nasal Cannula Nasal Cannula O2 Flow Rate 2.0 2.0 2.0 2.0 02/05/18 02/05/18 02/05/18 02/05/18 08:00 08:43 08:43 10:51 Temp 98.7 98.7 Pulse 78 78 70 B/P (MAP) 160/73 160/73 160/73 (102) Pulse Ox 99 O2 Delivery Nasal Cannula Nasal Cannula O2 Flow Rate 2.0 2.0 02/05/18 02/05/18 11:05 11:23 Pulse 78 78 Resp 20 B/P (MAP) 161/75 164/84 (110) Pulse Ox 99 O2 Delivery Nasal Cannula Intake and Output 02/04/18 02/04/18 02/05/18 15:00 23:00 07:00 Intake Total 550 ml 579 ml Output Total 550 ml 400 ml 380 ml Balance 0 ml -400 ml 199 ml DEBORAH TERRY MD Feb 05, 2018 11:27
[2018-02-05 13:01] LABS: HEMOGLOBIN 13.2 g/dL (13.0-17.5); RED BLOOD COUNT 4.36 x10^6/uL (4.30-5.70); RED CELL DISTRIBUTION WIDTH 14.2 % (11.5-14.5); WHITE BLOOD COUNT 13.5 x10^3/uL (4.0-11.0)
[2018-02-05 13:19] LABS: ALBUMIN 3.8 g/dL (3.4-5.0); ALBUMIN/GLOBULIN RATIO 0.9 (1.0-1.7); CALCIUM 9.4 mg/dL (8.5-10.1); CREATININE 1.7 mg/dL (0.7-1.3); GFR 41.9; MAGNESIUM 2.1 mg/dL (1.8-2.4); POTASSIUM 3.9 mmol/L (3.5-5.1); TOTAL PROTEIN 8.2 g/dL (6.4-8.2)
--- NOTE | 2018-02-05 16:52 | RAD ---
PORTABLE CHEST 1V Clinical indications: HYPOXEMIA COMPARISON: None available. Findings: No acute lung infiltrate or pleural effusion or pulmonary edema or lung mass or pneumothorax is seen. The heart size, pulmonary vasculature, mediastinum and both jaqui are unremarkable given AP magnification. Impression: No acute radiographic abnormality is seen. Electronically signed by: Aaron River MD (02/05/2018 4:48 PM) [facility]
--- NOTE | 2018-02-05 18:34 | PDOC ---
PROGRESS NOTES Subjective Subjective Patient seen and examined Objective Objective Vital Signs Date Time Temp Pulse Resp B/P (MAP) Pulse Ox O2 Delivery O2 Flow Rate FiO2 02/05/18 16:00 61 119/60 (79) 99 Room Air 02/05/18 12:00 98.7 2.0 98.7 02/05/18 11:23 20 Intake and Output 02/05/18 07:01 Intake Total 1129 ml Output Total 1330 ml Balance -201 ml Intake Oral 550 ml IV Total 579 ml Output Urine Total 1330 ml Physical Exam Abdomen: Normal bowel sounds Heart: Regular rate General: No acute distress Lungs: Clear to auscultation Assessment Assessment Problems Medical Problems: (1) Hypertensive emergency Status: Acute (2) Intraparenchymal hemorrhage of brain Status: Acute Malignant hypertension. Under better control. Will adjust medications based on blood pressure ranges recommended by the neurology and neurosurgery services. Right basal ganglia intraparenchymal hemorrhage. Followed by neurosurgery and neurology. CT scan pending. Acute kidney injury. Monitoring and fluids as above. Hyperlipidemia. LDL 118. Statins when liver function testing have normalize. Hypothyroidism. As per the primary service. Comment Review of Relevant I have reviewed the following items wayne (where applicable) has been applied. Labs Laboratory Tests Test 02/04/18 04:30 02/04/18 09:45 02/05/18 12:40 White Blood Count 11.9 x10^3/uL (4.0-11.0) 13.5 x10^3/uL (4.0-11.0) Red Blood Count 4.63 x10^6/uL (4.30-5.70) 4.36 x10^6/uL (4.30-5.70) Hemoglobin 13.7 g/dL (13.0-17.5) 13.2 g/dL (13.0-17.5) Hematocrit 41.0 % (39.0-53.0) 39.0 % (39.0-53.0) Mean Corpuscular Volume 89 fL (79-100) 89 fL (79-100) Mean Corpuscular Hemoglobin 30 pg (25-35) 30 pg (25-35) Mean Corpuscular Hemoglobin Concent 33 g/dL (31-37) 34 g/dL (31-37) Red Cell Distribution Width 14.6 % (11.5-14.5) 14.2 % (11.5-14.5) Platelet Count 305 x10^3/uL (140-400) 279 x10^3/uL (140-400) Neutrophils (%) (Auto) 63 % (31-73) Lymphocytes (%) (Auto) 24 % (24-48) Monocytes (%) (Auto) 10 % (0-9) Eosinophils (%) (Auto) 3 % (0-3) Basophils (%) (Auto) 1 % (0-3) Neutrophils # (Auto) 7.4 x10^3uL (1.8-7.7) Lymphocytes # (Auto) 2.8 x10^3/uL (1.0-4.8) Monocytes # (Auto) 1.2 x10^3/uL (0.0-1.1) Eosinophils # (Auto) 0.3 x10^3/uL (0.0-0.7) Basophils # (Auto) 0.1 x10^3/uL (0.0-0.2) Sodium Level 141 mmol/L (136-145) 139 mmol/L (136-145) Potassium Level 4.2 mmol/L (3.5-5.1) 3.9 mmol/L (3.5-5.1) Chloride Level 105 mmol/L (98-107) 104 mmol/L (98-107) Carbon Dioxide Level 26 mmol/L (21-32) 23 mmol/L (21-32) Anion Gap 10 (6-14) 12 (6-14) Blood Urea Nitrogen 20 mg/dL (8-26) 20 mg/dL (8-26) Creatinine 2.0 mg/dL (0.7-1.3) 1.7 mg/dL (0.7-1.3) Estimated GFR (Cockcroft-Gault) 34.7 41.9 BUN/Creatinine Ratio 10 (6-20) 12 (6-20) Glucose Level 122 mg/dL (70-99) 107 mg/dL (70-99) Calcium Level 9.6 mg/dL (8.5-10.1) 9.4 mg/dL (8.5-10.1) Total Bilirubin 0.8 mg/dL (0.2-1.0) 1.0 mg/dL (0.2-1.0) Aspartate Amino Transf (AST/SGOT) 57 U/L (15-37) 36 U/L (15-37) Alanine Aminotransferase (ALT/SGPT) 89 U/L (16-63) 69 U/L (16-63) Alkaline Phosphatase 62 U/L (46-116) 59 U/L (46-116) Total Protein 8.0 g/dL (6.4-8.2) 8.2 g/dL (6.4-8.2) Albumin 3.8 g/dL (3.4-5.0) 3.8 g/dL (3.4-5.0) Albumin/Globulin Ratio 0.9 (1.0-1.7) 0.9 (1.0-1.7) Triglycerides Level 135 mg/dL (0-150) Cholesterol Level 177 mg/dL (0-200) LDL Cholesterol, Calculated 118 mg/dL (0-100) VLDL Cholesterol, Calculated 27 mg/dL (0-40) Non-HDL Cholesterol Calculated 145 mg/dL (0-129) HDL Cholesterol 32 mg/dL (40-60) Cholesterol/HDL Ratio 5.5 Free Thyroxine 0.66 ng/dL (0.76-1.46) Free Triiodothyronine (T3) pg/mL 2.15 pg/mL (2.18-3.98) Urine Opiates Screen Neg (NEG) Urine Methadone Screen Neg (NEG) Urine Barbiturates Neg (NEG) Urine Phencyclidine Screen Neg (NEG) Urine Amphetamine/Methamphetamine Neg (NEG) Urine Benzodiazepines Screen Neg (NEG) Urine Cocaine Screen Neg (NEG) Urine Cannabinoids Screen Neg (NEG) Urine Ethyl Alcohol Neg (NEG) Magnesium Level 2.1 mg/dL (1.8-2.4) Laboratory Tests Test 02/05/18 12:40 White Blood Count 13.5 x10^3/uL (4.0-11.0) Red Blood Count 4.36 x10^6/uL (4.30-5.70) Hemoglobin 13.2 g/dL (13.0-17.5) Hematocrit 39.0 % (39.0-53.0) Mean Corpuscular Volume 89 fL (79-100) Mean Corpuscular Hemoglobin 30 pg (25-35) Mean Corpuscular Hemoglobin Concent 34 g/dL (31-37) Red Cell Distribution Width 14.2 % (11.5-14.5) Platelet Count 279 x10^3/uL (140-400) Sodium Level 139 mmol/L (136-145) Potassium Level 3.9 mmol/L (3.5-5.1) Chloride Level 104 mmol/L (98-107) Carbon Dioxide Level 23 mmol/L (21-32) Anion Gap 12 (6-14) Blood Urea Nitrogen 20 mg/dL (8-26) Creatinine 1.7 mg/dL (0.7-1.3) Estimated GFR (Cockcroft-Gault) 41.9 BUN/Creatinine Ratio 12 (6-20) Glucose Level 107 mg/dL (70-99) Calcium Level 9.4 mg/dL (8.5-10.1) Magnesium Level 2.1 mg/dL (1.8-2.4) Total Bilirubin 1.0 mg/dL (0.2-1.0) Aspartate Amino Transf (AST/SGOT) 36 U/L (15-37) Alanine Aminotransferase (ALT/SGPT) 69 U/L (16-63) Alkaline Phosphatase 59 U/L (46-116) Total Protein 8.2 g/dL (6.4-8.2) Albumin 3.8 g/dL (3.4-5.0) Albumin/Globulin Ratio 0.9 (1.0-1.7) Medications Current Medications Labetalol HCl (Normodyne Iv Push) 20 mg 1X ONCE IVP Last administered on 02/03at 12:26; Start 02/03/18 at 12:15; Stop 02/03/18 at 12:16; Status DC Nicardipine HCl 50 mg/Sodium Chloride 270 ml @ 27 mls/hr CONT PRN IV SEE I/O RECORD Last administered on 02/04/18at 22:26; Start 02/03/18 at 12:30 Ondansetron HCl (Zofran) 4 mg PRN Q8HRS PRN IV NAUSEA/VOMITING; Start at 13:15; Stop 02/04/18 at 13:14; Status DC Fentanyl Citrate (Fentanyl 2ml Vial) 50 mcg PRN Q1HR PRN IV PAIN; Start at 13:15; Stop 02/04/18 at 13:14; Status DC Metoprolol Succinate (Toprol Xl) 25 mg DAILY PO Last administered on at 08:43; Start 02/03/18 at 22:30 Simvastatin (Zocor) 20 mg HS PO Last administered on 02/04/18at 20:38; Start 02/04/18 at 21:00 Labetalol HCl (Normodyne Iv Push) 20 mg PRN Q2HR PRN IVP HYPERTENSION, SEE COMMENTS Last administered on 02/05/18at 13:48; Start 02/04/18 at 13:15 Labetalol HCl (Normodyne Iv Push) 20 mg PRN Q2HR PRN IVP HYPERTENSION, SEE COMMENTS; Start 02/04/18 at 13:45; Stop 02/04/18 at 13:46; Status DC Amlodipine Besylate (Norvasc) 5 mg DAILY PO Last administered on 02/05/18at 08: 43; Start 02/04/18 at 18:00 Vitals/I & O Vital Sign - Last 24 Hours 02/04/18 02/04/18 02/04/18 02/04/18 19:00 20:00 20:00 21:00 Temp 99.1 99.1 Pulse 69 82 78 Resp 22 24 22 B/P (MAP) 158/77 (104) 151/74 (99) 153/71 (98) Pulse Ox 97 96 95 O2 Delivery Nasal Cannula Nasal Cannula Nasal Cannula Nasal Cannula O2 Flow Rate 2.0 2.0 2.0 2.0 02/04/18 02/04/18 02/04/18 02/05/18 22:00 22:12 23:00 00:00 Temp 99.8 99.8 Pulse 81 81 75 78 Resp 23 27 24 B/P (MAP) 166/70 (102) 166/71 154/69 (97) 154/75 (101) Pulse Ox 95 96 96 O2 Delivery Nasal Cannula Nasal Cannula Nasal Cannula O2 Flow Rate 2.0 2.0 2.0 02/05/18 02/05/18 02/05/18 02/05/18 00:00 01:00 02:00 03:00 Pulse 80 90 81 Resp 23 38 24 B/P (MAP) 159/79 (105) 146/79 (101) 144/85 (104) Pulse Ox 97 97 94 O2 Delivery Nasal Cannula Nasal Cannula Nasal Cannula Nasal Cannula O2 Flow Rate 2.0 2.0 2.0 2.0 02/05/18 02/05/18 02/05/18 02/05/18 03:45 04:00 04:00 05:00 Temp 98.7 98.7 Pulse 80 78 72 Resp 35 29 B/P (MAP) 171/81 174/82 (112) 140/76 (97) Pulse Ox 94 96 O2 Delivery Nasal Cannula Nasal Cannula Nasal Cannula O2 Flow Rate 2.0 2.0 2.0 02/05/18 02/05/18 02/05/18 02/05/18 06:00 07:00 08:00 08:43 Temp 98.7 98.7 Pulse 70 70 78 Resp 20 B/P (MAP) 133/69 (90) 160/73 (102) 160/73 Pulse Ox 99 99 O2 Delivery Nasal Cannula Nasal Cannula Nasal Cannula O2 Flow Rate 2.0 2.0 2.0 02/05/18 02/05/18 02/05/18 02/05/18 08:43 10:51 11:05 11:23 Temp 98.7 98.7 Pulse 78 70 78 78 Resp 20 B/P (MAP) 160/73 160/73 (102) 161/75 164/84 (110) Pulse Ox 99 99 O2 Delivery Nasal Cannula Nasal Cannula O2 Flow Rate 2.0 02/05/18 02/05/18 02/05/18 12:00 13:48 16:00 Temp 98.7 98.7 Pulse 67 67 61 B/P (MAP) 168/83 (111) 168/83 119/60 (79) Pulse Ox 99 99 O2 Delivery Nasal Cannula Room Air O2 Flow Rate 2.0 Intake and Output 02/04/18 02/04/18 02/05/18 15:01 23:01 07:01 Intake Total 550 ml 579 ml Output Total 550 ml 400 ml 380 ml Balance 0 ml -400 ml 199 ml LEROY LIN MD Feb 05, 2018 18:34
--- NOTE | 2018-02-05 19:16 | PDOC ---
PROGRESS NOTES Assessment Assessment Right BG ICH. Cerebral edema. Headaches. Hypertensive emergency, BP 237/115 mmHg. Hypertensive encephalopathy. Metabolic encephalopathy. Left side weakness. Slurred speech. Elevated hepatic enzymes. HLD. Renal insufficiency. Hypothyroidism, TSH 15.636 RECOMMENDATIONS/PLAN: Continue life support. Zocor 20 mg HS. Avoid antiplatelet and anticoagulant agents at the present time. BP control. Repeat HCT w/o contrast if condition worse. Treat medical diseases. Treat thyroid disease per medical team. HISTORY OF THE PRESENT ILLNESS: 57-y-old male patient without knowing his health condition developed headaches, slurred speech, left side weakness and he was brought to the ER of [facility] on . His HCT reveled right BG hemorrhage. His BP was high round 237/115 mmHg. PAST MEDICAL HISTORY Cardiovascular: Hyperlipidemia Pulmonary: No pertinent hx CENTRAL NERVOUS SYSTEM: Other (no pertinent hx) GI: No pertinent hx Heme/Onc: No pertinent hx Hepatobiliary: No pertinent hx Psych: No pertinent hx Musculoskeletal: Other (no pertinent hx) Rheumatologic: Gout Infectious disease: No pertinent hx ENT: No pertinent hx Renal/: No pertinent hx Endocrine: No pertinent hx Dermatology: No pertinent hx PAST SURGICAL HISTORY No pertinent history FAMILY HISTORY Hypertension PAST SURGERY HISTORY: No major surgery recently. ALLERGY: Unknown MEDICATIONS: Refer to [facility] SOCIAL HISTORY: Denies current smoking and illicit drug use. Unknown his drinking status. REVIEW OF SYSTEMS: Constitutional: Obesity. Head: No recent traumatic brain or head injury. Skin: No edema, or rash. Ear: No infection, tinnitus. Eyes: No vision loss or color blindness. Nose: No bleeding or purulent discharges. Hearing: No hearing decrease. Neck: No injury. Cardiac: HTN. Pulmonary: No COPD. GI: No GI ulcer, GI bleeding. Urinary/genital: No dysuria, incontinence, urinary retention. Endocrinologic: Diabetes Mellitus, obesity. Skeletomuscular: No muscular atrophy, deformity. Neurological: see HP. Psychiatric: Denies drug use/abuse. Otherwise, not [id number] review of systems. PHYSICAL EXAMINATION: General appearance is in acute distress. HEENT: Normocephalic and nontraumatic. Eyes, nose, ears, and throat are unremarkable. Neck is supple. No lymphadenopathy. No crepitus. Cardiovascular: S1, S2, regular rate and rhythm. Pulmonary: Clear to auscultation bilaterally. Abdomen: Bowel sounds are positive. Abdomen is soft, nontender, and nondistended. Extremities: No rash or edema. NEUROLOGICAL EXAMINATION: Sleepiness but arousable. Able to follow some commands. Not fully oriented to time, but knew place and person. PERRL. EOMI. CN: no focal findings. Muscle tone: within normal. Muscle strength: 5 right side, 4 distal left UE. DTR:1- 2 Plantar reflex: Neutral response bilaterally Gait: not examined in bed. Sensory exam: no abnormal findings. No other cerebellar signs elicited. F-T-N test not performed due to not fully follow commands. Objective Objective Vital Signs Date Time Temp Pulse Resp B/P (MAP) Pulse Ox O2 Delivery O2 Flow Rate FiO2 02/05/18 16:00 61 119/60 (79) 99 Room Air 02/05/18 12:00 98.7 2.0 98.7 02/05/18 11:23 20 Intake and Output 02/05/18 07:01 Intake Total 1129 ml Output Total 1330 ml Balance -201 ml Intake Oral 550 ml IV Total 579 ml Output Urine Total 1330 ml Vitals Signs Vitals VS - Last 72 Hours, by Label Date Time Temp Pulse Resp B/P (MAP) Pulse Ox O2 Delivery O2 Flow Rate FiO2 02/05/18 16:00 61 119/60 (79) 99 Room Air 02/05/18 13:48 67 168/83 02/05/18 12:00 98.7 67 168/83 (111) 99 Nasal Cannula 2.0 98.7 02/05/18 11:23 78 20 164/84 (110) 99 Nasal Cannula 02/05/18 11:05 78 161/75 02/05/18 10:51 98.7 70 160/73 (102) 99 Nasal Cannula 2.0 98.7 02/05/18 08:43 78 160/73 02/05/18 08:43 78 160/73 02/05/18 08:00 Nasal Cannula 2.0 02/05/18 07:00 98.7 70 160/73 (102) 99 Nasal Cannula 2.0 98.7 02/05/18 06:00 70 20 133/69 (90) 99 Nasal Cannula 2.0 02/05/18 05:00 72 29 140/76 (97) 96 Nasal Cannula 2.0 02/05/18 04:00 98.7 78 35 174/82 (112) 94 Nasal Cannula 2.0 98.7 02/05/18 04:00 Nasal Cannula 2.0 02/05/18 03:45 80 171/81 02/05/18 03:00 81 24 144/85 (104) 94 Nasal Cannula 2.0 02/05/18 02:00 90 38 146/79 (101) 97 Nasal Cannula 2.0 02/05/18 01:00 80 23 159/79 (105) 97 Nasal Cannula 2.0 02/05/18 00:00 Nasal Cannula 2.0 02/05/18 00:00 99.8 78 24 154/75 (101) 96 Nasal Cannula 2.0 99.8 02/04/18 23:00 75 27 154/69 (97) 96 Nasal Cannula 2.0 02/04/18 22:12 81 166/71 02/04/18 22:00 81 23 166/70 (102) 95 Nasal Cannula 2.0 02/04/18 21:00 78 22 153/71 (98) 95 Nasal Cannula 2.0 02/04/18 20:00 Nasal Cannula 2.0 02/04/18 20:00 99.1 82 24 151/74 (99) 96 Nasal Cannula 2.0 99.1 02/04/18 19:00 69 22 158/77 (104) 97 Nasal Cannula 2.0 02/04/18 18:00 79 26 178/117 (137) 97 Nasal Cannula 2.0 02/04/18 17:32 80 178/117 18 17:32 80 178/117 02/04/18 17:00 78 21 144/85 (104) 95 Nasal Cannula 2.0 02/04/18 16:00 98.6 72 22 147/85 (105) 98 Nasal Cannula 2.0 98.6 02/04/18 16:00 Nasal Cannula 2.0 02/04/18 15:00 70 21 155/81 (105) 97 Nasal Cannula 2.0 02/04/18 14:45 80 22 147/82 (103) 95 Nasal Cannula 2.0 02/04/18 14:25 68 22 131/80 (97) 95 Nasal Cannula 2.0 02/04/18 14:00 76 16 163/83 (109) 98 Nasal Cannula 2.0 02/04/18 13:00 77 15 160/75 (103) 96 Nasal Cannula 2.0 02/04/18 12:45 82 17 164/79 (107) 98 Nasal Cannula 2.0 02/04/18 12:00 90 17 185/90 (121) 97 Nasal Cannula 2.0 02/04/18 12:00 Nasal Cannula 2.0 02/04/18 11:00 74 16 175/84 (114) 98 Nasal Cannula 2.0 02/04/18 10:09 90 136/89 02/04/18 10:00 91 17 136/86 (103) 97 Nasal Cannula 2.0 02/04/18 09:00 73 19 142/81 (101) 98 Nasal Cannula 2.0 02/04/18 08:00 Nasal Cannula 2.0 02/04/18 08:00 98.2 74 18 163/96 (118) 97 Nasal Cannula 2.0 98.2 02/04/18 07:00 70 22 147/79 (101) 97 Nasal Cannula 2.0 Laboratory Laboratory Laboratory Tests Test 02/05/18 12:40 White Blood Count 13.5 x10^3/uL (4.0-11.0) Red Blood Count 4.36 x10^6/uL (4.30-5.70) Hemoglobin 13.2 g/dL (13.0-17.5) Hematocrit 39.0 % (39.0-53.0) Mean Corpuscular Volume 89 fL (79-100) Mean Corpuscular Hemoglobin 30 pg (25-35) Mean Corpuscular Hemoglobin Concent 34 g/dL (31-37) Red Cell Distribution Width 14.2 % (11.5-14.5) Platelet Count 279 x10^3/uL (140-400) Sodium Level 139 mmol/L (136-145) Potassium Level 3.9 mmol/L (3.5-5.1) Chloride Level 104 mmol/L (98-107) Carbon Dioxide Level 23 mmol/L (21-32) Anion Gap 12 (6-14) Blood Urea Nitrogen 20 mg/dL (8-26) Creatinine 1.7 mg/dL (0.7-1.3) Estimated GFR (Cockcroft-Gault) 41.9 BUN/Creatinine Ratio 12 (6-20) Glucose Level 107 mg/dL (70-99) Calcium Level 9.4 mg/dL (8.5-10.1) Magnesium Level 2.1 mg/dL (1.8-2.4) Total Bilirubin 1.0 mg/dL (0.2-1.0) Aspartate Amino Transf (AST/SGOT) 36 U/L (15-37) Alanine Aminotransferase (ALT/SGPT) 69 U/L (16-63) Alkaline Phosphatase 59 U/L (46-116) Total Protein 8.2 g/dL (6.4-8.2) Albumin 3.8 g/dL (3.4-5.0) Albumin/Globulin Ratio 0.9 (1.0-1.7) Medication Medications Current Medications Simvastatin (Zocor) 20 mg HS PO Last administered on 02/04/18at 20:38; Start 02/04/18 at 21:00 Comment Review of Relevant I have reviewed the following items wayne (where applicable) has been applied. SHREYAS SPEARS MD Feb 05, 2018 19:16
[2018-02-05] MEDS: SIMVASTATIN 20 MG TABLET PO SCH (20:19)
[2018-02-06 03:39] VITALS: BP 139/85
[2018-02-06 08:00] VITALS: BP 172/98
[2018-02-06] MEDS: amLODIPine BESYLATE 5 MG TABLET PO SCH (08:45)
[2018-02-06] MEDS: METOPROLOL SUCC 24HR ER 25 MG TAB.ER.24H. PO SCH (08:45)
--- NOTE | 2018-02-06 09:00 | PDOC ---
PULMONARY PROGRESS NOTES Subjective PT NOT MORE SOA OFF 02 Vitals Vital Signs Date Time Temp Pulse Resp B/P (MAP) Pulse Ox O2 Delivery O2 Flow Rate FiO2 02/06/18 08:45 74 172/98 02/06/18 08:00 98.5 20 98 Room Air 98.5 02/05/18 12:00 2.0 Lungs: Clear Cardiovascular: S1 Abdomen: Soft Neuro Exam: Alert Extremities: No Edema Skin: Warm Labs Laboratory Tests Test 02/04/18 09:45 02/05/18 12:40 Urine Opiates Screen Neg (NEG) Urine Methadone Screen Neg (NEG) Urine Barbiturates Neg (NEG) Urine Phencyclidine Screen Neg (NEG) Urine Amphetamine/Methamphetamine Neg (NEG) Urine Benzodiazepines Screen Neg (NEG) Urine Cocaine Screen Neg (NEG) Urine Cannabinoids Screen Neg (NEG) Urine Ethyl Alcohol Neg (NEG) White Blood Count 13.5 x10^3/uL (4.0-11.0) Red Blood Count 4.36 x10^6/uL (4.30-5.70) Hemoglobin 13.2 g/dL (13.0-17.5) Hematocrit 39.0 % (39.0-53.0) Mean Corpuscular Volume 89 fL (79-100) Mean Corpuscular Hemoglobin 30 pg (25-35) Mean Corpuscular Hemoglobin Concent 34 g/dL (31-37) Red Cell Distribution Width 14.2 % (11.5-14.5) Platelet Count 279 x10^3/uL (140-400) Sodium Level 139 mmol/L (136-145) Potassium Level 3.9 mmol/L (3.5-5.1) Chloride Level 104 mmol/L (98-107) Carbon Dioxide Level 23 mmol/L (21-32) Anion Gap 12 (6-14) Blood Urea Nitrogen 20 mg/dL (8-26) Creatinine 1.7 mg/dL (0.7-1.3) Estimated GFR (Cockcroft-Gault) 41.9 BUN/Creatinine Ratio 12 (6-20) Glucose Level 107 mg/dL (70-99) Calcium Level 9.4 mg/dL (8.5-10.1) Magnesium Level 2.1 mg/dL (1.8-2.4) Total Bilirubin 1.0 mg/dL (0.2-1.0) Aspartate Amino Transf (AST/SGOT) 36 U/L (15-37) Alanine Aminotransferase (ALT/SGPT) 69 U/L (16-63) Alkaline Phosphatase 59 U/L (46-116) Total Protein 8.2 g/dL (6.4-8.2) Albumin 3.8 g/dL (3.4-5.0) Albumin/Globulin Ratio 0.9 (1.0-1.7) Laboratory Tests Test 02/05/18 12:40 White Blood Count 13.5 x10^3/uL (4.0-11.0) Red Blood Count 4.36 x10^6/uL (4.30-5.70) Hemoglobin 13.2 g/dL (13.0-17.5) Hematocrit 39.0 % (39.0-53.0) Mean Corpuscular Volume 89 fL (79-100) Mean Corpuscular Hemoglobin 30 pg (25-35) Mean Corpuscular Hemoglobin Concent 34 g/dL (31-37) Red Cell Distribution Width 14.2 % (11.5-14.5) Platelet Count 279 x10^3/uL (140-400) Sodium Level 139 mmol/L (136-145) Potassium Level 3.9 mmol/L (3.5-5.1) Chloride Level 104 mmol/L (98-107) Carbon Dioxide Level 23 mmol/L (21-32) Anion Gap 12 (6-14) Blood Urea Nitrogen 20 mg/dL (8-26) Creatinine 1.7 mg/dL (0.7-1.3) Estimated GFR (Cockcroft-Gault) 41.9 BUN/Creatinine Ratio 12 (6-20) Glucose Level 107 mg/dL (70-99) Calcium Level 9.4 mg/dL (8.5-10.1) Magnesium Level 2.1 mg/dL (1.8-2.4) Total Bilirubin 1.0 mg/dL (0.2-1.0) Aspartate Amino Transf (AST/SGOT) 36 U/L (15-37) Alanine Aminotransferase (ALT/SGPT) 69 U/L (16-63) Alkaline Phosphatase 59 U/L (46-116) Total Protein 8.2 g/dL (6.4-8.2) Albumin 3.8 g/dL (3.4-5.0) Albumin/Globulin Ratio 0.9 (1.0-1.7) Impression . IMPRESSION: 1. Acute hypoxemic respiratory failure. 2. Right basal ganglia intraparenchymal hemorrhage. 3. Malignant hypertension. 4. Acute kidney injury. 5. Hyperlipidemia. 6. Hypothyroidism. 7. Clinical presentation compatible with obstructive sleep apnea. Plan . NOC DESAT FOLLOW NEURO INPUT RESP STATUS IS COMPENSATED WILL NEED A SLEEP STUDY OUT PT KELLIE MIRANDA MD Feb 06, 2018 09:00
--- NOTE | 2018-02-06 10:47 | PDOC ---
PROGRESS NOTES Subjective Subjective up in chair denies headache family at bedside Objective Objective Vital Signs Date Time Temp Pulse Resp B/P (MAP) Pulse Ox O2 Delivery O2 Flow Rate FiO2 02/06/18 08:45 74 172/98 02/06/18 08:00 98.5 20 98 Room Air 98.5 02/05/18 12:00 2.0 Intake and Output 02/06/18 07:01 Intake Total 360 ml Output Total 550 ml Balance -190 ml Intake Oral 360 ml IV Total 0 ml Output Urine Total 550 ml # Voids 4 Physical Exam General: Alert, Oriented X3, Cooperative, No acute distress MUSCULOSKELETAL: Other (JEFFRIES) Neuro: Other (continued left upper extremitiy weakness) Assessment Assessment Problems Medical Problems: (1) Hypertensive emergency Status: Acute (2) Intraparenchymal hemorrhage of brain Status: Acute Plan Plan of Care BG hemorrhage ok to transfer to rehab from NS standpoint will plan for f/u CT head in a week Comment Review of Relevant I have reviewed the following items wayne (where applicable) has been applied. Labs Laboratory Tests Test 02/05/18 12:40 White Blood Count 13.5 x10^3/uL (4.0-11.0) Red Blood Count 4.36 x10^6/uL (4.30-5.70) Hemoglobin 13.2 g/dL (13.0-17.5) Hematocrit 39.0 % (39.0-53.0) Mean Corpuscular Volume 89 fL (79-100) Mean Corpuscular Hemoglobin 30 pg (25-35) Mean Corpuscular Hemoglobin Concent 34 g/dL (31-37) Red Cell Distribution Width 14.2 % (11.5-14.5) Platelet Count 279 x10^3/uL (140-400) Sodium Level 139 mmol/L (136-145) Potassium Level 3.9 mmol/L (3.5-5.1) Chloride Level 104 mmol/L (98-107) Carbon Dioxide Level 23 mmol/L (21-32) Anion Gap 12 (6-14) Blood Urea Nitrogen 20 mg/dL (8-26) Creatinine 1.7 mg/dL (0.7-1.3) Estimated GFR (Cockcroft-Gault) 41.9 BUN/Creatinine Ratio 12 (6-20) Glucose Level 107 mg/dL (70-99) Calcium Level 9.4 mg/dL (8.5-10.1) Magnesium Level 2.1 mg/dL (1.8-2.4) Total Bilirubin 1.0 mg/dL (0.2-1.0) Aspartate Amino Transf (AST/SGOT) 36 U/L (15-37) Alanine Aminotransferase (ALT/SGPT) 69 U/L (16-63) Alkaline Phosphatase 59 U/L (46-116) Total Protein 8.2 g/dL (6.4-8.2) Albumin 3.8 g/dL (3.4-5.0) Albumin/Globulin Ratio 0.9 (1.0-1.7) Laboratory Tests Test 02/05/18 12:40 White Blood Count 13.5 x10^3/uL (4.0-11.0) Red Blood Count 4.36 x10^6/uL (4.30-5.70) Hemoglobin 13.2 g/dL (13.0-17.5) Hematocrit 39.0 % (39.0-53.0) Mean Corpuscular Volume 89 fL (79-100) Mean Corpuscular Hemoglobin 30 pg (25-35) Mean Corpuscular Hemoglobin Concent 34 g/dL (31-37) Red Cell Distribution Width 14.2 % (11.5-14.5) Platelet Count 279 x10^3/uL (140-400) Sodium Level 139 mmol/L (136-145) Potassium Level 3.9 mmol/L (3.5-5.1) Chloride Level 104 mmol/L (98-107) Carbon Dioxide Level 23 mmol/L (21-32) Anion Gap 12 (6-14) Blood Urea Nitrogen 20 mg/dL (8-26) Creatinine 1.7 mg/dL (0.7-1.3) Estimated GFR (Cockcroft-Gault) 41.9 BUN/Creatinine Ratio 12 (6-20) Glucose Level 107 mg/dL (70-99) Calcium Level 9.4 mg/dL (8.5-10.1) Magnesium Level 2.1 mg/dL (1.8-2.4) Total Bilirubin 1.0 mg/dL (0.2-1.0) Aspartate Amino Transf (AST/SGOT) 36 U/L (15-37) Alanine Aminotransferase (ALT/SGPT) 69 U/L (16-63) Alkaline Phosphatase 59 U/L (46-116) Total Protein 8.2 g/dL (6.4-8.2) Albumin 3.8 g/dL (3.4-5.0) Albumin/Globulin Ratio 0.9 (1.0-1.7) Medications Current Medications Labetalol HCl (Normodyne Iv Push) 20 mg 1X ONCE IVP Last administered on 02/03at 12:26; Start 02/03/18 at 12:15; Stop 02/03/18 at 12:16; Status DC Nicardipine HCl 50 mg/Sodium Chloride 270 ml @ 27 mls/hr CONT PRN IV SEE I/O RECORD Last administered on 02/04/18at 22:26; Start 02/03/18 at 12:30 Ondansetron HCl (Zofran) 4 mg PRN Q8HRS PRN IV NAUSEA/VOMITING; Start at 13:15; Stop 02/04/18 at 13:14; Status DC Fentanyl Citrate (Fentanyl 2ml Vial) 50 mcg PRN Q1HR PRN IV PAIN; Start at 13:15; Stop 02/04/18 at 13:14; Status DC Metoprolol Succinate (Toprol Xl) 25 mg DAILY PO Last administered on at 08:45; Start 02/03/18 at 22:30 Simvastatin (Zocor) 20 mg HS PO Last administered on 02/05/18at 20:19; Start 02/04/18 at 21:00 Labetalol HCl (Normodyne Iv Push) 20 mg PRN Q2HR PRN IVP HYPERTENSION, SEE COMMENTS Last administered on 02/05/18at 20:20; Start 02/04/18 at 13:15 Labetalol HCl (Normodyne Iv Push) 20 mg PRN Q2HR PRN IVP HYPERTENSION, SEE COMMENTS; Start 02/04/18 at 13:45; Stop 02/04/18 at 13:46; Status DC Amlodipine Besylate (Norvasc) 5 mg DAILY PO Last administered on 02/06/18at 08: 45; Start 02/04/18 at 18:00 Vitals/I & O Vital Sign - Last 24 Hours 02/05/18 02/05/18 02/05/18 02/05/18 10:51 11:05 11:23 12:00 Temp 98.7 98.7 98.7 98.7 Pulse 70 78 78 67 Resp 20 B/P (MAP) 160/73 (102) 161/75 164/84 (110) 168/83 (111) Pulse Ox 99 99 99 O2 Delivery Nasal Cannula Nasal Cannula Nasal Cannula O2 Flow Rate 2.0 2.0 02/05/18 02/05/18 02/05/18 02/05/18 13:48 16:00 19:30 20:00 Temp 98.2 98.2 Pulse 67 61 72 Resp 24 B/P (MAP) 168/83 119/60 (79) 179/64 (102) Pulse Ox 99 98 O2 Delivery Room Air Room Air Room Air 02/05/18 02/05/18 02/06/18 02/06/18 20:20 23:16 03:39 08:00 Temp 98.1 97.8 98.5 98.1 97.8 98.5 Pulse 72 66 75 74 Resp 20 20 20 B/P (MAP) 179/64 132/84 (100) 139/85 (103) 172/98 (122) Pulse Ox 93 94 98 O2 Delivery Room Air Room Air Room Air 02/06/18 02/06/18 08:45 08:45 Pulse 74 74 B/P (MAP) 172/98 172/98 Intake and Output 02/05/18 02/05/18 02/06/18 15:01 23:01 07:01 Intake Total 120 ml 240 ml Output Total 550 ml Balance -430 ml 240 ml DIAMOND KRAMER APRN Feb 06, 2018 10:47
[2018-02-06] MEDS: LABETALOL 20 MG/4 ML DISP.SYRIN. IVP PRN (11:17)
--- NOTE | 2018-02-06 11:38 | PDOC ---
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 seen and examined in ICU Talked with nursing Vitals Vitals Vital Signs Date Time Temp Pulse Resp B/P (MAP) Pulse Ox O2 Delivery O2 Flow Rate FiO2 02/06/18 11:17 74 190/98 02/06/18 08:00 98.5 20 98 Room Air 98.5 02/05/18 12:00 2.0 Physical Exam General: Alert, Oriented X3, Cooperative, No acute distress Heart: Regular rate, Normal S1, Normal S2 Lungs: Clear Abdomen: Normal bowel sounds Extremities: No cyanosis, No edema, Normal pulses Skin: No breakdown, No significant lesion Labs LABS Laboratory Tests Test 02/05/18 12:40 White Blood Count 13.5 x10^3/uL (4.0-11.0) Red Blood Count 4.36 x10^6/uL (4.30-5.70) Hemoglobin 13.2 g/dL (13.0-17.5) Hematocrit 39.0 % (39.0-53.0) Mean Corpuscular Volume 89 fL (79-100) Mean Corpuscular Hemoglobin 30 pg (25-35) Mean Corpuscular Hemoglobin Concent 34 g/dL (31-37) Red Cell Distribution Width 14.2 % (11.5-14.5) Platelet Count 279 x10^3/uL (140-400) Sodium Level 139 mmol/L (136-145) Potassium Level 3.9 mmol/L (3.5-5.1) Chloride Level 104 mmol/L (98-107) Carbon Dioxide Level 23 mmol/L (21-32) Anion Gap 12 (6-14) Blood Urea Nitrogen 20 mg/dL (8-26) Creatinine 1.7 mg/dL (0.7-1.3) Estimated GFR (Cockcroft-Gault) 41.9 BUN/Creatinine Ratio 12 (6-20) Glucose Level 107 mg/dL (70-99) Calcium Level 9.4 mg/dL (8.5-10.1) Magnesium Level 2.1 mg/dL (1.8-2.4) Total Bilirubin 1.0 mg/dL (0.2-1.0) Aspartate Amino Transf (AST/SGOT) 36 U/L (15-37) Alanine Aminotransferase (ALT/SGPT) 69 U/L (16-63) Alkaline Phosphatase 59 U/L (46-116) Total Protein 8.2 g/dL (6.4-8.2) Albumin 3.8 g/dL (3.4-5.0) Albumin/Globulin Ratio 0.9 (1.0-1.7) Assessment and Plan Assessmemt and Plan Problems Medical Problems: (1) Hypertensive emergency Status: Acute (2) Intraparenchymal hemorrhage of brain Status: Acute Comment Review of Relevant I have reviewed the following items wayne (where applicable) has been applied. Labs Laboratory Tests Test 02/05/18 12:40 White Blood Count 13.5 x10^3/uL (4.0-11.0) Red Blood Count 4.36 x10^6/uL (4.30-5.70) Hemoglobin 13.2 g/dL (13.0-17.5) Hematocrit 39.0 % (39.0-53.0) Mean Corpuscular Volume 89 fL (79-100) Mean Corpuscular Hemoglobin 30 pg (25-35) Mean Corpuscular Hemoglobin Concent 34 g/dL (31-37) Red Cell Distribution Width 14.2 % (11.5-14.5) Platelet Count 279 x10^3/uL (140-400) Sodium Level 139 mmol/L (136-145) Potassium Level 3.9 mmol/L (3.5-5.1) Chloride Level 104 mmol/L (98-107) Carbon Dioxide Level 23 mmol/L (21-32) Anion Gap 12 (6-14) Blood Urea Nitrogen 20 mg/dL (8-26) Creatinine 1.7 mg/dL (0.7-1.3) Estimated GFR (Cockcroft-Gault) 41.9 BUN/Creatinine Ratio 12 (6-20) Glucose Level 107 mg/dL (70-99) Calcium Level 9.4 mg/dL (8.5-10.1) Magnesium Level 2.1 mg/dL (1.8-2.4) Total Bilirubin 1.0 mg/dL (0.2-1.0) Aspartate Amino Transf (AST/SGOT) 36 U/L (15-37) Alanine Aminotransferase (ALT/SGPT) 69 U/L (16-63) Alkaline Phosphatase 59 U/L (46-116) Total Protein 8.2 g/dL (6.4-8.2) Albumin 3.8 g/dL (3.4-5.0) Albumin/Globulin Ratio 0.9 (1.0-1.7) Laboratory Tests Test 02/05/18 12:40 White Blood Count 13.5 x10^3/uL (4.0-11.0) Red Blood Count 4.36 x10^6/uL (4.30-5.70) Hemoglobin 13.2 g/dL (13.0-17.5) Hematocrit 39.0 % (39.0-53.0) Mean Corpuscular Volume 89 fL (79-100) Mean Corpuscular Hemoglobin 30 pg (25-35) Mean Corpuscular Hemoglobin Concent 34 g/dL (31-37) Red Cell Distribution Width 14.2 % (11.5-14.5) Platelet Count 279 x10^3/uL (140-400) Sodium Level 139 mmol/L (136-145) Potassium Level 3.9 mmol/L (3.5-5.1) Chloride Level 104 mmol/L (98-107) Carbon Dioxide Level 23 mmol/L (21-32) Anion Gap 12 (6-14) Blood Urea Nitrogen 20 mg/dL (8-26) Creatinine 1.7 mg/dL (0.7-1.3) Estimated GFR (Cockcroft-Gault) 41.9 BUN/Creatinine Ratio 12 (6-20) Glucose Level 107 mg/dL (70-99) Calcium Level 9.4 mg/dL (8.5-10.1) Magnesium Level 2.1 mg/dL (1.8-2.4) Total Bilirubin 1.0 mg/dL (0.2-1.0) Aspartate Amino Transf (AST/SGOT) 36 U/L (15-37) Alanine Aminotransferase (ALT/SGPT) 69 U/L (16-63) Alkaline Phosphatase 59 U/L (46-116) Total Protein 8.2 g/dL (6.4-8.2) Albumin 3.8 g/dL (3.4-5.0) Albumin/Globulin Ratio 0.9 (1.0-1.7) Medications Current Medications Labetalol HCl (Normodyne Iv Push) 20 mg 1X ONCE IVP Last administered on 02/03at 12:26; Start 02/03/18 at 12:15; Stop 02/03/18 at 12:16; Status DC Nicardipine HCl 50 mg/Sodium Chloride 270 ml @ 27 mls/hr CONT PRN IV SEE I/O RECORD Last administered on 02/04/18at 22:26; Start 02/03/18 at 12:30 Ondansetron HCl (Zofran) 4 mg PRN Q8HRS PRN IV NAUSEA/VOMITING; Start at 13:15; Stop 02/04/18 at 13:14; Status DC Fentanyl Citrate (Fentanyl 2ml Vial) 50 mcg PRN Q1HR PRN IV PAIN; Start at 13:15; Stop 02/04/18 at 13:14; Status DC Metoprolol Succinate (Toprol Xl) 25 mg DAILY PO Last administered on at 08:45; Start 02/03/18 at 22:30 Simvastatin (Zocor) 20 mg HS PO Last administered on 02/05/18at 20:19; Start 02/04/18 at 21:00 Labetalol HCl (Normodyne Iv Push) 20 mg PRN Q2HR PRN IVP HYPERTENSION, SEE COMMENTS Last administered on 02/06/18at 11:17; Start 02/04/18 at 13:15 Labetalol HCl (Normodyne Iv Push) 20 mg PRN Q2HR PRN IVP HYPERTENSION, SEE COMMENTS; Start 02/04/18 at 13:45; Stop 02/04/18 at 13:46; Status DC Amlodipine Besylate (Norvasc) 5 mg DAILY PO Last administered on 02/06/18at 08: 45; Start 02/04/18 at 18:00 Vitals/I & O Vital Sign - Last 24 Hours 02/05/18 02/05/18 02/05/18 02/05/18 12:00 13:48 16:00 19:30 Temp 98.7 98.2 98.7 98.2 Pulse 67 67 61 72 Resp 24 B/P (MAP) 168/83 (111) 168/83 119/60 (79) 179/64 (102) Pulse Ox 99 99 98 O2 Delivery Nasal Cannula Room Air Room Air O2 Flow Rate 2.0 02/05/18 02/05/18 02/05/18 02/06/18 20:00 20:20 23:16 03:39 Temp 98.1 97.8 98.1 97.8 Pulse 72 66 75 Resp 20 20 B/P (MAP) 179/64 132/84 (100) 139/85 (103) Pulse Ox 93 94 O2 Delivery Room Air Room Air Room Air 02/06/18 02/06/18 02/06/18 02/06/18 08:00 08:45 08:45 11:17 Temp 98.5 98.5 Pulse 74 74 74 74 Resp 20 B/P (MAP) 172/98 (122) 172/98 172/98 190/98 Pulse Ox 98 O2 Delivery Room Air Intake and Output 02/05/18 02/05/18 02/06/18 15:01 23:01 07:01 Intake Total 120 ml 240 ml Output Total 550 ml Balance -430 ml 240 ml HECTOR MURDOCK MD Feb 06, 2018 11:37
[2018-02-06 12:00] VITALS: BP 168/83
[2018-02-06] MEDS: LEVOTHYROXINE 125 MCG TABLET PO SCH (12:30)
[2018-02-06] MEDS: cefTRIAXone IV Push 1 GM VIAL. IVP SCH (12:30)
[2018-02-06] MEDS: CARVEDILOL 6.25 MG TABLET. PO SCH ×2 (12:30→15:13)
[2018-02-06] MEDS ORDERED: amLODIPine BESYLATE 5 MG TABLET PO ONE (12:30)
--- NOTE | 2018-02-06 13:46 | PDOC ---
PROGRESS NOTES Assessment Assessment Right BG ICH. Cerebral edema. Headaches. Hypertensive emergency, BP 237/115 mmHg. Hypertensive encephalopathy. Metabolic encephalopathy. Left side weakness. Slurred speech. Elevated hepatic enzymes. HLD. Renal insufficiency. Hypothyroidism, TSH 15.636 RECOMMENDATIONS/PLAN: Zocor 20 mg HS. Avoid antiplatelet and anticoagulant agents at the present time. BP control. Repeat HCT w/o contrast if condition worse. Treat medical diseases. Treat thyroid disease per medical team. Discussed with his ex- at bedside on 02/06/18. HISTORY OF THE PRESENT ILLNESS: 57-y-old male patient without knowing his health condition developed headaches, slurred speech, left side weakness and he was brought to the ER of [facility] on . His HCT reveled right BG hemorrhage. His BP was high round 237/115 mmHg. PAST MEDICAL HISTORY Cardiovascular: Hyperlipidemia Pulmonary: No pertinent hx CENTRAL NERVOUS SYSTEM: Other (no pertinent hx) GI: No pertinent hx Heme/Onc: No pertinent hx Hepatobiliary: No pertinent hx Psych: No pertinent hx Musculoskeletal: Other (no pertinent hx) Rheumatologic: Gout Infectious disease: No pertinent hx ENT: No pertinent hx Renal/: No pertinent hx Endocrine: No pertinent hx Dermatology: No pertinent hx PAST SURGICAL HISTORY No pertinent history FAMILY HISTORY Hypertension PAST SURGERY HISTORY: No major surgery recently. ALLERGY: Unknown MEDICATIONS: Refer to [facility] SOCIAL HISTORY: Denies current smoking and illicit drug use. Unknown his drinking status. REVIEW OF SYSTEMS: Constitutional: Obesity. Head: No recent traumatic brain or head injury. Skin: No edema, or rash. Ear: No infection, tinnitus. Eyes: No vision loss or color blindness. Nose: No bleeding or purulent discharges. Hearing: No hearing decrease. Neck: No injury. Cardiac: HTN. Pulmonary: No COPD. GI: No GI ulcer, GI bleeding. Urinary/genital: No dysuria, incontinence, urinary retention. Endocrinologic: Diabetes Mellitus, obesity. Skeletomuscular: No muscular atrophy, deformity. Neurological: see HP. Psychiatric: Denies drug use/abuse. Otherwise, not [id number] review of systems. PHYSICAL EXAMINATION: General appearance is in subacute distress. HEENT: Normocephalic and nontraumatic. Eyes, nose, ears, and throat are unremarkable. Neck is supple. No lymphadenopathy. No crepitus. Cardiovascular: S1, S2, regular rate and rhythm. Pulmonary: Clear to auscultation bilaterally. Abdomen: Bowel sounds are positive. Abdomen is soft, nontender, and nondistended. Extremities: No rash or edema. NEUROLOGICAL EXAMINATION: Drowsiness. Sitting in chair. Able to follow some commands. Not fully oriented to time, but knew place and person. PERRL. EOMI. CN: no focal findings. Muscle tone: within normal. Muscle strength: 5 right side, 4 distal left UE. DTR:1- 2 Plantar reflex: Neutral response bilaterally Gait: not examined in chair. Sensory exam: no abnormal findings. No other cerebellar signs elicited. F-T-N test not accurate. Objective Objective Vital Signs Date Time Temp Pulse Resp B/P (MAP) Pulse Ox O2 Delivery O2 Flow Rate FiO2 02/06/18 12:30 69 168/83 02/06/18 12:00 98.6 18 95 Room Air 98.6 02/05/18 12:00 2.0 Intake and Output 02/06/18 07:01 Intake Total 360 ml Output Total 550 ml Balance -190 ml Intake Oral 360 ml IV Total 0 ml Output Urine Total 550 ml # Voids 4 Vitals Signs Vitals VS - Last 72 Hours, by Label Date Time Temp Pulse Resp B/P (MAP) Pulse Ox O2 Delivery O2 Flow Rate FiO2 02/06/18 12:30 69 168/83 02/06/18 12:30 69 168/83 02/06/18 12:00 98.6 69 18 168/83 (111) 95 Room Air 98.6 02/06/18 11:17 74 190/98 02/06/18 08:45 74 172/98 02/06/18 08:45 74 172/98 02/06/18 08:10 Room Air 02/06/18 08:00 98.5 74 20 172/98 (122) 98 Room Air 98.5 02/06/18 03:39 97.8 75 20 139/85 (103) 94 Room Air 97.8 02/05/18 23:16 98.1 66 20 132/84 (100) 93 Room Air 98.1 02/05/18 20:20 72 179/64 02/05/18 20:00 Room Air 02/05/18 19:30 98.2 72 24 179/64 (102) 98 Room Air 98.2 02/05/18 16:00 61 119/60 (79) 99 Room Air 02/05/18 13:48 67 168/83 02/05/18 12:00 98.7 67 168/83 (111) 99 Nasal Cannula 2.0 98.7 02/05/18 11:23 78 20 164/84 (110) 99 Nasal Cannula 02/05/18 11:05 78 161/75 02/05/18 10:51 98.7 70 160/73 (102) 99 Nasal Cannula 2.0 98.7 02/05/18 08:43 78 160/73 02/05/18 08:43 78 160/73 02/05/18 08:00 Nasal Cannula 2.0 02/05/18 07:00 98.7 70 160/73 (102) 99 Nasal Cannula 2.0 98.7 Medication Medications Current Medications Amlodipine Besylate (Norvasc) 5 mg 1X ONCE PO Last administered on 02/06/18at 12:30; Start 02/06/18 at 12:30; Stop 02/06/18 at 12:31; Status DC Amlodipine Besylate (Norvasc) 10 mg DAILY PO ; Start 02/07/18 at 09:00 Carvedilol (Coreg) 6.25 mg BIDWMEALS PO Last administered on 02/06/18at 12:30; Start 02/06/18 at 12:30 Ceftriaxone Sodium (Rocephin) 1 gm Q24H IVP Last administered on 02/06/18at 12: 30; Start 02/06/18 at 12:30 Levothyroxine Sodium (Synthroid) 125 mcg DAILY06 PO Last administered on at 12:30; Start 02/06/18 at 12:30 Comment Review of Relevant I have reviewed the following items wayne (where applicable) has been applied. SHREYAS SPEARS MD Feb 06, 2018 13:46
[2018-02-06] MEDS: LISINOPRIL 5 MG TABLET. PO SCH ×2 (15:15→19:56)
[2018-02-06 16:00] VITALS: BP 154/89
[2018-02-06 19:29] VITALS: BP 150/76
[2018-02-06] MEDS: ACETAMINOPHEN 325 MG TABLET. PO PRN (19:55)
[2018-02-06] MEDS: SIMVASTATIN 20 MG TABLET PO SCH (19:55)
[2018-02-06 23:00] VITALS: BP 147/72
[2018-02-07 03:05] VITALS: BP 149/86
[2018-02-07] MEDS: LEVOTHYROXINE 125 MCG TABLET PO SCH (06:25)
[2018-02-07 07:00] VITALS: BP 162/94
[2018-02-07 07:53] LABS: BASO # 0.1 x10^3/uL (0.0-0.2); BASO % 1 % (0-3); EOS # 0.4 x10^3/uL (0.0-0.7); EOS % 4 % (0-3); HEMATOCRIT 39.5 % (39.0-53.0); HEMOGLOBIN 13.5 g/dL (13.0-17.5); LYMPH # 1.8 x10^3/uL (1.0-4.8); LYMPH % 19 % (24-48); MEAN CORPUSCULAR HEMOGLOBIN 31 pg (25-35); MEAN CORPUSCULAR HGB CONC 34 g/dL (31-37); MEAN CORPUSCULAR VOLUME 89 fL (79-100); MONO % 11 % (0-9); NEUT # 6.1 x10^3uL (1.8-7.7); NEUT % 65 % (31-73); PLATELET COUNT 241 x10^3/uL (140-400); RED BLOOD COUNT 4.43 x10^6/uL (4.30-5.70); RED CELL DISTRIBUTION WIDTH 14.1 % (11.5-14.5); WHITE BLOOD COUNT 9.4 x10^3/uL (4.0-11.0)
[2018-02-07 08:22] LABS: ALBUMIN 3.5 g/dL (3.4-5.0); ALBUMIN/GLOBULIN RATIO 0.8 (1.0-1.7); CALCIUM 9.3 mg/dL (8.5-10.1); CREATININE 1.6 mg/dL (0.7-1.3); GFR 44.9; TOTAL BILIRUBIN 0.9 mg/dL (0.2-1.0); TOTAL PROTEIN 7.9 g/dL (6.4-8.2)
[2018-02-07] MEDS: LISINOPRIL 5 MG TABLET. PO SCH ×2 (09:01→21:09)
[2018-02-07] MEDS: amLODIPine BESYLATE 10 MG TABLET PO SCH (09:01)
[2018-02-07] MEDS: CARVEDILOL 6.25 MG TABLET. PO SCH ×2 (09:02→17:20)
--- NOTE | 2018-02-07 09:49 | PDOC ---
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 seen and examined bedside Talked with nursing await rehab placement low fat diet reviewed with family Vitals Vitals Vital Signs Date Time Temp Pulse Resp B/P (MAP) Pulse Ox O2 Delivery O2 Flow Rate FiO2 02/07/18 09:02 62 162/94 02/07/18 07:00 98.0 18 97 Room Air 98.0 Physical Exam General: Alert, Oriented X3, Cooperative, No acute distress Heart: Regular rate, Normal S1, Normal S2, No murmurs Lungs: Clear Abdomen: Normal bowel sounds Extremities: No cyanosis, No edema, Normal pulses Skin: No breakdown, No significant lesion Labs LABS Laboratory Tests Test 02/06/18 13:10 02/07/18 07:30 Lactic Acid Level 1.9 mmol/L (0.4-2.0) White Blood Count 9.4 x10^3/uL (4.0-11.0) Red Blood Count 4.43 x10^6/uL (4.30-5.70) Hemoglobin 13.5 g/dL (13.0-17.5) Hematocrit 39.5 % (39.0-53.0) Mean Corpuscular Volume 89 fL (79-100) Mean Corpuscular Hemoglobin 31 pg (25-35) Mean Corpuscular Hemoglobin Concent 34 g/dL (31-37) Red Cell Distribution Width 14.1 % (11.5-14.5) Platelet Count 241 x10^3/uL (140-400) Neutrophils (%) (Auto) 65 % (31-73) Lymphocytes (%) (Auto) 19 % (24-48) Monocytes (%) (Auto) 11 % (0-9) Eosinophils (%) (Auto) 4 % (0-3) Basophils (%) (Auto) 1 % (0-3) Neutrophils # (Auto) 6.1 x10^3uL (1.8-7.7) Lymphocytes # (Auto) 1.8 x10^3/uL (1.0-4.8) Monocytes # (Auto) 1.0 x10^3/uL (0.0-1.1) Eosinophils # (Auto) 0.4 x10^3/uL (0.0-0.7) Basophils # (Auto) 0.1 x10^3/uL (0.0-0.2) Sodium Level 140 mmol/L (136-145) Potassium Level 4.0 mmol/L (3.5-5.1) Chloride Level 104 mmol/L (98-107) Carbon Dioxide Level 23 mmol/L (21-32) Anion Gap 13 (6-14) Blood Urea Nitrogen 25 mg/dL (8-26) Creatinine 1.6 mg/dL (0.7-1.3) Estimated GFR (Cockcroft-Gault) 44.9 BUN/Creatinine Ratio 16 (6-20) Glucose Level 105 mg/dL (70-99) Calcium Level 9.3 mg/dL (8.5-10.1) Total Bilirubin 0.9 mg/dL (0.2-1.0) Aspartate Amino Transf (AST/SGOT) 26 U/L (15-37) Alanine Aminotransferase (ALT/SGPT) 50 U/L (16-63) Alkaline Phosphatase 58 U/L (46-116) Total Protein 7.9 g/dL (6.4-8.2) Albumin 3.5 g/dL (3.4-5.0) Albumin/Globulin Ratio 0.8 (1.0-1.7) Assessment and Plan Assessmemt and Plan Problems Medical Problems: (1) Hypertensive emergency Status: Acute (2) Intraparenchymal hemorrhage of brain Status: Acute Ambulation Comments * Verbal cueing for incr step length on left with improved heelstrike and right lateral weight shift noted. Balance Exercises * Weight Shifting * Reaching * Eyes Closed * Standing * Side-step * Backing Balance Exercises Comments * crossover;min/mod A for balance; A level varied with activity Other Information * Long discussion with pt and exwife regarding need for acute rehab and benefits of it. Also discussed with pt the importance of BP control to limited further issues including diet, exercise, and consistently taking meds. Pt will need continued rehab at discharge to address limitations in strength, balance, safety, and coordination to allow for incr indep for safe discharge home. Per pt he does have insurance Learning Preferences * One-on-One Instruction * Audio * Visual * Demonstration Problem List (body system elements) * Impaired fnctnl mobility * Heart Rate * Strength * Blood Pressure * Obesity * Balance * Respiration/perfusion * Coordination * Knowledge-safe techniques * Pain Pt/caregiver agrees with plan of care/goals * Yes Patient condition at conclusion of therapy * Pt in chair * Call light in reach * PtIn no apparent distress * Pt denies further needs * Visitor with patient Communicated Patient Care With (Name, Title) * Blanca RN; Ghazala CM; Awilda OT Goal 1 - Bed Mobility Assistance Required * Independent Goal 1 Assessment * Appropriate - Continue Goal 2 - Transfers Assistance Required * Independent Goal 2 - Transfer Type * Sit to Stand Goal 2 Assessment * Appropriate - Continue Goal 3 - Ambulation Assistance Required * Independent Goal 3 - Ambulation Distance * 250' Goal 3 - Ambulation Device * No Device Goal 3 Assessment * Goal Revised Goal 4 - Stairs Assistance Required * Independent Goal 4 - Number of Stairs * 5-9 Goal 4 - Device on Stairs * Rail on Right Goal 4 Assessment * Appropriate - Continue Treatment Plan * Therapeutic Exercise * Bed Mobility Training * Transfer training * Gait Training * Neuromuscular Re-Ed * Dynamic Balance Training Frequency of Treatment Expected * 12 visits/week Duration of Treatment Expected * 2 weeks Discharge Recommendations * Acute Rehab facility Discharge Recommendation Comments * Ongoing equipment assess Comment Review of Relevant I have reviewed the following items wayne (where applicable) has been applied. Labs Laboratory Tests Test 02/05/18 12:40 02/06/18 13:10 02/07/18 07:30 White Blood Count 13.5 x10^3/uL (4.0-11.0) 9.4 x10^3/uL (4.0-11.0) Red Blood Count 4.36 x10^6/uL (4.30-5.70) 4.43 x10^6/uL (4.30-5.70) Hemoglobin 13.2 g/dL (13.0-17.5) 13.5 g/dL (13.0-17.5) Hematocrit 39.0 % (39.0-53.0) 39.5 % (39.0-53.0) Mean Corpuscular Volume 89 fL (79-100) 89 fL (79-100) Mean Corpuscular Hemoglobin 30 pg (25-35) 31 pg (25-35) Mean Corpuscular Hemoglobin Concent 34 g/dL (31-37) 34 g/dL (31-37) Red Cell Distribution Width 14.2 % (11.5-14.5) 14.1 % (11.5-14.5) Platelet Count 279 x10^3/uL (140-400) 241 x10^3/uL (140-400) Sodium Level 139 mmol/L (136-145) 140 mmol/L (136-145) Potassium Level 3.9 mmol/L (3.5-5.1) 4.0 mmol/L (3.5-5.1) Chloride Level 104 mmol/L (98-107) 104 mmol/L (98-107) Carbon Dioxide Level 23 mmol/L (21-32) 23 mmol/L (21-32) Anion Gap 12 (6-14) 13 (6-14) Blood Urea Nitrogen 20 mg/dL (8-26) 25 mg/dL (8-26) Creatinine 1.7 mg/dL (0.7-1.3) 1.6 mg/dL (0.7-1.3) Estimated GFR (Cockcroft-Gault) 41.9 44.9 BUN/Creatinine Ratio 12 (6-20) 16 (6-20) Glucose Level 107 mg/dL (70-99) 105 mg/dL (70-99) Calcium Level 9.4 mg/dL (8.5-10.1) 9.3 mg/dL (8.5-10.1) Magnesium Level 2.1 mg/dL (1.8-2.4) Total Bilirubin 1.0 mg/dL (0.2-1.0) 0.9 mg/dL (0.2-1.0) Aspartate Amino Transf (AST/SGOT) 36 U/L (15-37) 26 U/L (15-37) Alanine Aminotransferase (ALT/SGPT) 69 U/L (16-63) 50 U/L (16-63) Alkaline Phosphatase 59 U/L (46-116) 58 U/L (46-116) Total Protein 8.2 g/dL (6.4-8.2) 7.9 g/dL (6.4-8.2) Albumin 3.8 g/dL (3.4-5.0) 3.5 g/dL (3.4-5.0) Albumin/Globulin Ratio 0.9 (1.0-1.7) 0.8 (1.0-1.7) Lactic Acid Level 1.9 mmol/L (0.4-2.0) Neutrophils (%) (Auto) 65 % (31-73) Lymphocytes (%) (Auto) 19 % (24-48) Monocytes (%) (Auto) 11 % (0-9) Eosinophils (%) (Auto) 4 % (0-3) Basophils (%) (Auto) 1 % (0-3) Neutrophils # (Auto) 6.1 x10^3uL (1.8-7.7) Lymphocytes # (Auto) 1.8 x10^3/uL (1.0-4.8) Monocytes # (Auto) 1.0 x10^3/uL (0.0-1.1) Eosinophils # (Auto) 0.4 x10^3/uL (0.0-0.7) Basophils # (Auto) 0.1 x10^3/uL (0.0-0.2) Laboratory Tests Test 02/06/18 13:10 02/07/18 07:30 Lactic Acid Level 1.9 mmol/L (0.4-2.0) White Blood Count 9.4 x10^3/uL (4.0-11.0) Red Blood Count 4.43 x10^6/uL (4.30-5.70) Hemoglobin 13.5 g/dL (13.0-17.5) Hematocrit 39.5 % (39.0-53.0) Mean Corpuscular Volume 89 fL (79-100) Mean Corpuscular Hemoglobin 31 pg (25-35) Mean Corpuscular Hemoglobin Concent 34 g/dL (31-37) Red Cell Distribution Width 14.1 % (11.5-14.5) Platelet Count 241 x10^3/uL (140-400) Neutrophils (%) (Auto) 65 % (31-73) Lymphocytes (%) (Auto) 19 % (24-48) Monocytes (%) (Auto) 11 % (0-9) Eosinophils (%) (Auto) 4 % (0-3) Basophils (%) (Auto) 1 % (0-3) Neutrophils # (Auto) 6.1 x10^3uL (1.8-7.7) Lymphocytes # (Auto) 1.8 x10^3/uL (1.0-4.8) Monocytes # (Auto) 1.0 x10^3/uL (0.0-1.1) Eosinophils # (Auto) 0.4 x10^3/uL (0.0-0.7) Basophils # (Auto) 0.1 x10^3/uL (0.0-0.2) Sodium Level 140 mmol/L (136-145) Potassium Level 4.0 mmol/L (3.5-5.1) Chloride Level 104 mmol/L (98-107) Carbon Dioxide Level 23 mmol/L (21-32) Anion Gap 13 (6-14) Blood Urea Nitrogen 25 mg/dL (8-26) Creatinine 1.6 mg/dL (0.7-1.3) Estimated GFR (Cockcroft-Gault) 44.9 BUN/Creatinine Ratio 16 (6-20) Glucose Level 105 mg/dL (70-99) Calcium Level 9.3 mg/dL (8.5-10.1) Total Bilirubin 0.9 mg/dL (0.2-1.0) Aspartate Amino Transf (AST/SGOT) 26 U/L (15-37) Alanine Aminotransferase (ALT/SGPT) 50 U/L (16-63) Alkaline Phosphatase 58 U/L (46-116) Total Protein 7.9 g/dL (6.4-8.2) Albumin 3.5 g/dL (3.4-5.0) Albumin/Globulin Ratio 0.8 (1.0-1.7) Medications Current Medications Labetalol HCl (Normodyne Iv Push) 20 mg 1X ONCE IVP Last administered on 02/03at 12:26; Start 02/03/18 at 12:15; Stop 02/03/18 at 12:16; Status DC Nicardipine HCl 50 mg/Sodium Chloride 270 ml @ 27 mls/hr CONT PRN IV SEE I/O RECORD Last administered on 02/04/18at 22:26; Start 02/03/18 at 12:30; Stop at 12:13; Status DC Ondansetron HCl (Zofran) 4 mg PRN Q8HRS PRN IV NAUSEA/VOMITING; Start at 13:15; Stop 02/04/18 at 13:14; Status DC Fentanyl Citrate (Fentanyl 2ml Vial) 50 mcg PRN Q1HR PRN IV PAIN; Start at 13:15; Stop 02/04/18 at 13:14; Status DC Metoprolol Succinate (Toprol Xl) 25 mg DAILY PO Last administered on at 08:45; Start 02/03/18 at 22:30; Stop 02/06/18 at 12:07; Status DC Simvastatin (Zocor) 20 mg HS PO Last administered on 02/06/18at 19:55; Start 02/04/18 at 21:00 Labetalol HCl (Normodyne Iv Push) 20 mg PRN Q2HR PRN IVP HYPERTENSION, SEE COMMENTS Last administered on 02/06/18at 11:17; Start 02/04/18 at 13:15 Labetalol HCl (Normodyne Iv Push) 20 mg PRN Q2HR PRN IVP HYPERTENSION, SEE COMMENTS; Start 02/04/18 at 13:45; Stop 02/04/18 at 13:46; Status DC Amlodipine Besylate (Norvasc) 5 mg DAILY PO Last administered on 02/06/18at 08: 45; Start 02/04/18 at 18:00; Stop 02/06/18 at 12:07; Status DC Ceftriaxone Sodium (Rocephin) 1 gm Q24H IVP Last administered on 02/06/18at 12: 30; Start 02/06/18 at 12:30 Amlodipine Besylate (Norvasc) 10 mg DAILY PO Last administered on 02/07/18at 09 :01; Start 02/07/18 at 09:00 Carvedilol (Coreg) 6.25 mg BIDWMEALS PO Last administered on 02/07/18at 09:02; Start 02/06/18 at 12:30 Amlodipine Besylate (Norvasc) 5 mg 1X ONCE PO Last administered on 02/06/18at 12:30; Start 02/06/18 at 12:30; Stop 02/06/18 at 12:31; Status DC Levothyroxine Sodium (Synthroid) 125 mcg DAILY06 PO Last administered on at 06:25; Start 02/06/18 at 12:30 Lisinopril (Prinivil) 5 mg BID PO Last administered on 02/07/18at 09:01; Start 02/06/18 at 14:30 Acetaminophen (Tylenol) 650 mg PRN Q6HRS PRN PO MILD PAIN / TEMP Last administered on 02/06/18at 19:55; Start 02/06/18 at 19:30 Vitals/I & O Vital Sign - Last 24 Hours 02/06/18 02/06/18 02/06/18 02/06/18 11:17 12:00 12:30 12:30 Temp 98.6 98.6 Pulse 74 69 69 69 Resp 18 B/P (MAP) 190/98 168/83 (111) 168/83 168/83 Pulse Ox 95 O2 Delivery Room Air 02/06/18 02/06/18 02/06/18 02/06/18 15:13 15:15 16:00 19:29 Temp 98.3 97.9 98.3 97.9 Pulse 75 75 70 79 Resp 18 18 B/P (MAP) 157/85 157/85 154/89 (110) 150/76 (100) Pulse Ox 97 94 O2 Delivery Room Air Room Air 02/06/18 02/06/18 02/07/18 02/07/18 19:56 23:00 03:05 07:00 Temp 98.1 98.3 98.0 98.1 98.3 98.0 Pulse 79 70 61 62 Resp 18 20 18 B/P (MAP) 150/76 147/72 (97) 149/86 (107) 162/94 (116) Pulse Ox 97 95 97 O2 Delivery Room Air Room Air Room Air 02/07/18 02/07/18 02/07/18 09:01 09:01 09:02 Pulse 62 62 62 B/P (MAP) 162/94 162/94 162/94 Intake and Output 02/06/18 02/06/18 02/07/18 15:00 23:00 07:00 Intake Total 360 ml 480 ml Balance 360 ml 480 ml HECTOR MURDOCK MD Feb 07, 2018 09:49
[2018-02-07 11:09] LABS: PLT ESTIMATE ADEQUATE (ADEQUATE)
[2018-02-07 12:00] VITALS: BP 143/71
[2018-02-07] MEDS: cefTRIAXone IV Push 1 GM VIAL. IVP SCH (12:36)
--- NOTE | 2018-02-07 12:58 | PDOC ---
PROGRESS NOTES Assessment Problems Medical Problems: (1) Hypertensive emergency Status: Acute (2) Intraparenchymal hemorrhage of brain Status: Acute Right basal ganglia hypertensive intracranial hemorrhage Plan Zocor 20 mg HS. Avoid antiplatelet and anticoagulant agents at the present time. BP control. Repeat HCT w/o contrast if condition worse. Treat medical diseases. Treat thyroid disease per medical team. Transfer to inpatient rehabilitation Subjective No complaints, denies headache, does have some arthralgias which are chronic Objective Vital Signs Date Time Temp Pulse Resp B/P (MAP) Pulse Ox O2 Delivery O2 Flow Rate FiO2 02/07/18 09:02 62 162/94 02/07/18 08:00 Room Air 2.0 02/07/18 07:00 98.0 18 97 98.0 Intake and Output 02/07/18 07:01 Intake Total 840 ml Balance 840 ml Intake Oral 840 ml # Voids 7 PHYSICAL EXAM Alert. Oriented to time, place and person. PERRL. EOMI. CN: no focal findings. Muscle tone: normal. Muscle strength: 4/5 left hemiparesis DTR: 1+ Plantar reflex: flexor Gait: not examined in bed. Sensory exam: no abnormal findings. No cerebellar signs elicited. Review of Relevant I have reviewed the following items wayne (where applicable) has been applied. Labs Laboratory Tests Test 02/06/18 13:10 02/07/18 07:30 Lactic Acid Level 1.9 mmol/L (0.4-2.0) White Blood Count 9.4 x10^3/uL (4.0-11.0) Red Blood Count 4.43 x10^6/uL (4.30-5.70) Hemoglobin 13.5 g/dL (13.0-17.5) Hematocrit 39.5 % (39.0-53.0) Mean Corpuscular Volume 89 fL (79-100) Mean Corpuscular Hemoglobin 31 pg (25-35) Mean Corpuscular Hemoglobin Concent 34 g/dL (31-37) Red Cell Distribution Width 14.1 % (11.5-14.5) Platelet Count 241 x10^3/uL (140-400) Neutrophils (%) (Auto) 65 % (31-73) Lymphocytes (%) (Auto) 19 % (24-48) Monocytes (%) (Auto) 11 % (0-9) Eosinophils (%) (Auto) 4 % (0-3) Basophils (%) (Auto) 1 % (0-3) Neutrophils # (Auto) 6.1 x10^3uL (1.8-7.7) Lymphocytes # (Auto) 1.8 x10^3/uL (1.0-4.8) Monocytes # (Auto) 1.0 x10^3/uL (0.0-1.1) Eosinophils # (Auto) 0.4 x10^3/uL (0.0-0.7) Basophils # (Auto) 0.1 x10^3/uL (0.0-0.2) Platelet Estimate Adequate (ADEQUATE) Large Platelets Present Giant Platelets Present Sodium Level 140 mmol/L (136-145) Potassium Level 4.0 mmol/L (3.5-5.1) Chloride Level 104 mmol/L (98-107) Carbon Dioxide Level 23 mmol/L (21-32) Anion Gap 13 (6-14) Blood Urea Nitrogen 25 mg/dL (8-26) Creatinine 1.6 mg/dL (0.7-1.3) Estimated GFR (Cockcroft-Gault) 44.9 BUN/Creatinine Ratio 16 (6-20) Glucose Level 105 mg/dL (70-99) Calcium Level 9.3 mg/dL (8.5-10.1) Total Bilirubin 0.9 mg/dL (0.2-1.0) Aspartate Amino Transf (AST/SGOT) 26 U/L (15-37) Alanine Aminotransferase (ALT/SGPT) 50 U/L (16-63) Alkaline Phosphatase 58 U/L (46-116) Total Protein 7.9 g/dL (6.4-8.2) Albumin 3.5 g/dL (3.4-5.0) Albumin/Globulin Ratio 0.8 (1.0-1.7) Laboratory Tests Test 02/06/18 13:10 02/07/18 07:30 Lactic Acid Level 1.9 mmol/L (0.4-2.0) White Blood Count 9.4 x10^3/uL (4.0-11.0) Red Blood Count 4.43 x10^6/uL (4.30-5.70) Hemoglobin 13.5 g/dL (13.0-17.5) Hematocrit 39.5 % (39.0-53.0) Mean Corpuscular Volume 89 fL (79-100) Mean Corpuscular Hemoglobin 31 pg (25-35) Mean Corpuscular Hemoglobin Concent 34 g/dL (31-37) Red Cell Distribution Width 14.1 % (11.5-14.5) Platelet Count 241 x10^3/uL (140-400) Neutrophils (%) (Auto) 65 % (31-73) Lymphocytes (%) (Auto) 19 % (24-48) Monocytes (%) (Auto) 11 % (0-9) Eosinophils (%) (Auto) 4 % (0-3) Basophils (%) (Auto) 1 % (0-3) Neutrophils # (Auto) 6.1 x10^3uL (1.8-7.7) Lymphocytes # (Auto) 1.8 x10^3/uL (1.0-4.8) Monocytes # (Auto) 1.0 x10^3/uL (0.0-1.1) Eosinophils # (Auto) 0.4 x10^3/uL (0.0-0.7) Basophils # (Auto) 0.1 x10^3/uL (0.0-0.2) Platelet Estimate Adequate (ADEQUATE) Large Platelets Present Giant Platelets Present Sodium Level 140 mmol/L (136-145) Potassium Level 4.0 mmol/L (3.5-5.1) Chloride Level 104 mmol/L (98-107) Carbon Dioxide Level 23 mmol/L (21-32) Anion Gap 13 (6-14) Blood Urea Nitrogen 25 mg/dL (8-26) Creatinine 1.6 mg/dL (0.7-1.3) Estimated GFR (Cockcroft-Gault) 44.9 BUN/Creatinine Ratio 16 (6-20) Glucose Level 105 mg/dL (70-99) Calcium Level 9.3 mg/dL (8.5-10.1) Total Bilirubin 0.9 mg/dL (0.2-1.0) Aspartate Amino Transf (AST/SGOT) 26 U/L (15-37) Alanine Aminotransferase (ALT/SGPT) 50 U/L (16-63) Alkaline Phosphatase 58 U/L (46-116) Total Protein 7.9 g/dL (6.4-8.2) Albumin 3.5 g/dL (3.4-5.0) Albumin/Globulin Ratio 0.8 (1.0-1.7) Medications Current Medications Labetalol HCl (Normodyne Iv Push) 20 mg 1X ONCE IVP Last administered on 02/03at 12:26; Start 02/03/18 at 12:15; Stop 02/03/18 at 12:16; Status DC Nicardipine HCl 50 mg/Sodium Chloride 270 ml @ 27 mls/hr CONT PRN IV SEE I/O RECORD Last administered on 02/04/18at 22:26; Start 02/03/18 at 12:30; Stop at 12:13; Status DC Ondansetron HCl (Zofran) 4 mg PRN Q8HRS PRN IV NAUSEA/VOMITING; Start at 13:15; Stop 02/04/18 at 13:14; Status DC Fentanyl Citrate (Fentanyl 2ml Vial) 50 mcg PRN Q1HR PRN IV PAIN; Start at 13:15; Stop 02/04/18 at 13:14; Status DC Metoprolol Succinate (Toprol Xl) 25 mg DAILY PO Last administered on at 08:45; Start 02/03/18 at 22:30; Stop 02/06/18 at 12:07; Status DC Simvastatin (Zocor) 20 mg HS PO Last administered on 02/06/18at 19:55; Start 02/04/18 at 21:00 Labetalol HCl (Normodyne Iv Push) 20 mg PRN Q2HR PRN IVP HYPERTENSION, SEE COMMENTS Last administered on 02/06/18at 11:17; Start 02/04/18 at 13:15 Labetalol HCl (Normodyne Iv Push) 20 mg PRN Q2HR PRN IVP HYPERTENSION, SEE COMMENTS; Start 02/04/18 at 13:45; Stop 02/04/18 at 13:46; Status DC Amlodipine Besylate (Norvasc) 5 mg DAILY PO Last administered on 02/06/18at 08: 45; Start 02/04/18 at 18:00; Stop 02/06/18 at 12:07; Status DC Ceftriaxone Sodium (Rocephin) 1 gm Q24H IVP Last administered on 02/07/18at 12: 36; Start 02/06/18 at 12:30 Amlodipine Besylate (Norvasc) 10 mg DAILY PO Last administered on 02/07/18at 09 :01; Start 02/07/18 at 09:00 Carvedilol (Coreg) 6.25 mg BIDWMEALS PO Last administered on 02/07/18at 09:02; Start 02/06/18 at 12:30 Amlodipine Besylate (Norvasc) 5 mg 1X ONCE PO Last administered on 02/06/18at 12:30; Start 02/06/18 at 12:30; Stop 02/06/18 at 12:31; Status DC Levothyroxine Sodium (Synthroid) 125 mcg DAILY06 PO Last administered on at 06:25; Start 02/06/18 at 12:30 Lisinopril (Prinivil) 5 mg BID PO Last administered on 02/07/18at 09:01; Start 02/06/18 at 14:30 Acetaminophen (Tylenol) 650 mg PRN Q6HRS PRN PO MILD PAIN / TEMP Last administered on 02/06/18at 19:55; Start 02/06/18 at 19:30 Lactobacillus Rhamnosus (Culturelle) 1 cap BID PO ; Start 02/07/18 at 21:00 Vitals/I & O Vital Sign - Last 24 Hours 02/06/18 02/06/18 02/06/18 02/06/18 15:13 15:15 16:00 19:29 Temp 98.3 97.9 98.3 97.9 Pulse 75 75 70 79 Resp 18 18 B/P (MAP) 157/85 157/85 154/89 (110) 150/76 (100) Pulse Ox 97 94 O2 Delivery Room Air Room Air 02/06/18 02/06/18 02/07/18 02/07/18 19:56 23:00 03:05 07:00 Temp 98.1 98.3 98.0 98.1 98.3 98.0 Pulse 79 70 61 62 Resp 18 20 18 B/P (MAP) 150/76 147/72 (97) 149/86 (107) 162/94 (116) Pulse Ox 97 95 97 O2 Delivery Room Air Room Air Room Air 02/07/18 02/07/18 02/07/18 02/07/18 08:00 09:01 09:01 09:02 Pulse 62 62 62 B/P (MAP) 162/94 162/94 162/94 O2 Delivery Room Air O2 Flow Rate 2.0 Intake and Output 02/06/18 02/06/18 02/07/18 15:01 23:01 07:01 Intake Total 360 ml 480 ml Balance 360 ml 480 ml LYNDON BARRETO MD Feb 07, 2018 12:58
[2018-02-07 16:00] VITALS: BP 131/75
[2018-02-07 19:00] VITALS: BP 146/89
[2018-02-07] MEDS: LACTOBACILLUS RHAMNOSUS GG 1 CAPSULE. PO SCH (21:09)
[2018-02-07] MEDS: SIMVASTATIN 20 MG TABLET PO SCH (21:09)
[2018-02-08] VITALS (8 sets, daily range): BP systolic 130–188; BP diastolic 69–100
[2018-02-08] MEDS: LEVOTHYROXINE 125 MCG TABLET PO SCH (06:03)
[2018-02-08] MEDS: LACTOBACILLUS RHAMNOSUS GG 1 CAPSULE. PO SCH ×2 (09:03→20:45)
[2018-02-08] MEDS: amLODIPine BESYLATE 10 MG TABLET PO SCH (09:03)
[2018-02-08] MEDS: CARVEDILOL 6.25 MG TABLET. PO SCH ×2 (09:03→16:20)
[2018-02-08] MEDS: LISINOPRIL 5 MG TABLET. PO SCH ×2 (09:03→20:46)
--- NOTE | 2018-02-08 11:02 | PDOC ---
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 seen and examined bedside Talked with nursing await rehab placement low fat diet reviewed with family Vitals Vitals Vital Signs Date Time Temp Pulse Resp B/P (MAP) Pulse Ox O2 Delivery O2 Flow Rate FiO2 02/08/18 09:03 63 130/77 02/08/18 08:00 Room Air 2.0 02/08/18 07:00 97.7 18 96 97.7 Physical Exam General: Alert, Oriented X3, Cooperative, No acute distress Heart: Regular rate, Normal S1, Normal S2, No murmurs Lungs: Clear Abdomen: Normal bowel sounds Extremities: No cyanosis, No edema, Normal pulses Skin: No breakdown, No significant lesion Assessment and Plan Assessmemt and Plan Problems Medical Problems: (1) Hypertensive emergency Status: Acute (2) Intraparenchymal hemorrhage of brain Status: Acute Comment Review of Relevant I have reviewed the following items wayne (where applicable) has been applied. Labs Laboratory Tests Test 02/06/18 13:10 02/07/18 07:30 Lactic Acid Level 1.9 mmol/L (0.4-2.0) White Blood Count 9.4 x10^3/uL (4.0-11.0) Red Blood Count 4.43 x10^6/uL (4.30-5.70) Hemoglobin 13.5 g/dL (13.0-17.5) Hematocrit 39.5 % (39.0-53.0) Mean Corpuscular Volume 89 fL (79-100) Mean Corpuscular Hemoglobin 31 pg (25-35) Mean Corpuscular Hemoglobin Concent 34 g/dL (31-37) Red Cell Distribution Width 14.1 % (11.5-14.5) Platelet Count 241 x10^3/uL (140-400) Neutrophils (%) (Auto) 65 % (31-73) Lymphocytes (%) (Auto) 19 % (24-48) Monocytes (%) (Auto) 11 % (0-9) Eosinophils (%) (Auto) 4 % (0-3) Basophils (%) (Auto) 1 % (0-3) Neutrophils # (Auto) 6.1 x10^3uL (1.8-7.7) Lymphocytes # (Auto) 1.8 x10^3/uL (1.0-4.8) Monocytes # (Auto) 1.0 x10^3/uL (0.0-1.1) Eosinophils # (Auto) 0.4 x10^3/uL (0.0-0.7) Basophils # (Auto) 0.1 x10^3/uL (0.0-0.2) Platelet Estimate Adequate (ADEQUATE) Large Platelets Present Giant Platelets Present Sodium Level 140 mmol/L (136-145) Potassium Level 4.0 mmol/L (3.5-5.1) Chloride Level 104 mmol/L (98-107) Carbon Dioxide Level 23 mmol/L (21-32) Anion Gap 13 (6-14) Blood Urea Nitrogen 25 mg/dL (8-26) Creatinine 1.6 mg/dL (0.7-1.3) Estimated GFR (Cockcroft-Gault) 44.9 BUN/Creatinine Ratio 16 (6-20) Glucose Level 105 mg/dL (70-99) Calcium Level 9.3 mg/dL (8.5-10.1) Total Bilirubin 0.9 mg/dL (0.2-1.0) Aspartate Amino Transf (AST/SGOT) 26 U/L (15-37) Alanine Aminotransferase (ALT/SGPT) 50 U/L (16-63) Alkaline Phosphatase 58 U/L (46-116) Total Protein 7.9 g/dL (6.4-8.2) Albumin 3.5 g/dL (3.4-5.0) Albumin/Globulin Ratio 0.8 (1.0-1.7) Microbiology 02/06/18 Blood Culture - Preliminary, Resulted NO GROWTH AFTER 1 DAY Medications Current Medications Labetalol HCl (Normodyne Iv Push) 20 mg 1X ONCE IVP Last administered on 02/03at 12:26; Start 02/03/18 at 12:15; Stop 02/03/18 at 12:16; Status DC Nicardipine HCl 50 mg/Sodium Chloride 270 ml @ 27 mls/hr CONT PRN IV SEE I/O RECORD Last administered on 02/04/18at 22:26; Start 02/03/18 at 12:30; Stop 12 /21/18 at 12:13; Status DC Ondansetron HCl (Zofran) 4 mg PRN Q8HRS PRN IV NAUSEA/VOMITING; Start at 13:15; Stop 02/04/18 at 13:14; Status DC Fentanyl Citrate (Fentanyl 2ml Vial) 50 mcg PRN Q1HR PRN IV PAIN; Start at 13:15; Stop 02/04/18 at 13:14; Status DC Metoprolol Succinate (Toprol Xl) 25 mg DAILY PO Last administered on at 08:45; Start 02/03/18 at 22:30; Stop 02/06/18 at 12:07; Status DC Simvastatin (Zocor) 20 mg HS PO Last administered on 02/07/18at 21:09; Start 02/04/18 at 21:00 Labetalol HCl (Normodyne Iv Push) 20 mg PRN Q2HR PRN IVP HYPERTENSION, SEE COMMENTS Last administered on 02/06/18at 11:17; Start 02/04/18 at 13:15 Labetalol HCl (Normodyne Iv Push) 20 mg PRN Q2HR PRN IVP HYPERTENSION, SEE COMMENTS; Start 02/04/18 at 13:45; Stop 02/04/18 at 13:46; Status DC Amlodipine Besylate (Norvasc) 5 mg DAILY PO Last administered on 02/06/18at 08: 45; Start 02/04/18 at 18:00; Stop 02/06/18 at 12:07; Status DC Ceftriaxone Sodium (Rocephin) 1 gm Q24H IVP Last administered on 02/07/18at 12: 36; Start 02/06/18 at 12:30 Amlodipine Besylate (Norvasc) 10 mg DAILY PO Last administered on 02/08/18at 09 :03; Start 02/07/18 at 09:00 Carvedilol (Coreg) 6.25 mg BIDWMEALS PO Last administered on 02/08/18at 09:03; Start 02/06/18 at 12:30 Amlodipine Besylate (Norvasc) 5 mg 1X ONCE PO Last administered on 02/06/18at 12:30; Start 02/06/18 at 12:30; Stop 02/06/18 at 12:31; Status DC Levothyroxine Sodium (Synthroid) 125 mcg DAILY06 PO Last administered on at 06:03; Start 02/06/18 at 12:30 Lisinopril (Prinivil) 5 mg BID PO Last administered on 02/08/18at 09:03; Start 02/06/18 at 14:30 Acetaminophen (Tylenol) 650 mg PRN Q6HRS PRN PO MILD PAIN / TEMP Last administered on 02/06/18at 19:55; Start 02/06/18 at 19:30 Lactobacillus Rhamnosus (Culturelle) 1 cap BID PO Last administered on at 09:03; Start 02/07/18 at 21:00 Vitals/I & O Vital Sign - Last 24 Hours 02/07/18 02/07/18 02/07/18 02/07/18 12:00 16:00 17:20 19:00 Temp 98.1 98.7 98.7 98.1 98.7 98.7 Pulse 65 60 60 60 Resp 18 18 18 B/P (MAP) 143/71 (95) 131/75 (93) 131/75 146/89 (108) Pulse Ox 96 97 98 O2 Delivery Room Air Room Air Room Air 02/07/18 02/07/18 02/08/18 02/08/18 19:45 21:09 00:12 04:13 Temp 97.9 97.9 97.9 97.9 Pulse 60 61 66 Resp 20 20 B/P (MAP) 131/75 130/69 (89) 155/77 (103) Pulse Ox 94 97 O2 Delivery Room Air Room Air Room Air 02/08/18 02/08/18 02/08/18 02/08/18 07:00 08:00 09:03 09:03 Temp 97.7 97.7 Pulse 63 63 63 Resp 18 B/P (MAP) 130/77 (94) 130/77 130/77 Pulse Ox 96 O2 Delivery Room Air Room Air O2 Flow Rate 2.0 02/08/18 09:03 Pulse 63 B/P (MAP) 130/77 Intake and Output 02/07/18 02/07/18 02/08/18 15:01 23:01 07:01 Intake Total 120 ml 520 ml Balance 120 ml 520 ml HECTOR MURDOCK MD Feb 08, 2018 11:02
--- NOTE | 2018-02-08 11:50 | PDOC2 ---
CONSULT Date of Consult Date of Consult DATE: 02/08/18 TIME: 11:44 Reason for Consult Reason for Consult: RENAL FAILURE Referring Physician Referring Physician: COLLETTE Identification/Chief Complaint Chief Complaint SLURRED SPEECH Source Source: Chart review, Patient History of Present Illness Reason for Visit: THIS IS A 57 YR OLD WITH SLURRED SPEECH. DX NOW WITH RIGHT BASAL GANGLIA BLEED. WAS VERY HYPERTENSIVE ON ADMIT. HAS NOT BEEN ON ANY MEDS AND HAS NOT BEEN SEEING ANY PHYSICIANS. NO NEPHROTOXINS NOTED. NO OTHER HX REPORTED. UA NEG FOR ANY NEPHRITIS. NO PROBLEMS WITH VOIDING Past Medical History Cardiovascular: Hyperlipidemia Pulmonary: No pertinent hx CENTRAL NERVOUS SYSTEM: Other (no pertinent hx) GI: No pertinent hx Heme/Onc: No pertinent hx Hepatobiliary: No pertinent hx Psych: No pertinent hx Musculoskeletal: Other (no pertinent hx) Rheumatologic: Gout Infectious disease: No pertinent hx ENT: No pertinent hx Renal/: No pertinent hx Endocrine: No pertinent hx Dermatology: No pertinent hx Past Surgical History Past Surgical History: No pertinent history Family History Family History: Hypertension Social History No ALCOHOL: none Drugs: None Lives: Alone Current Problem List Problem List Problems Medical Problems: (1) Hypertensive emergency Status: Acute (2) Intraparenchymal hemorrhage of brain Status: Acute Current Medications Current Medications Current Medications Labetalol HCl (Normodyne Iv Push) 20 mg 1X ONCE IVP Last administered on 02/03at 12:26; Start 02/03/18 at 12:15; Stop 02/03/18 at 12:16; Status DC Nicardipine HCl 50 mg/Sodium Chloride 270 ml @ 27 mls/hr CONT PRN IV SEE I/O RECORD Last administered on 02/04/18at 22:26; Start 02/03/18 at 12:30; Stop at 12:13; Status DC Ondansetron HCl (Zofran) 4 mg PRN Q8HRS PRN IV NAUSEA/VOMITING; Start at 13:15; Stop 02/04/18 at 13:14; Status DC Fentanyl Citrate (Fentanyl 2ml Vial) 50 mcg PRN Q1HR PRN IV PAIN; Start at 13:15; Stop 02/04/18 at 13:14; Status DC Metoprolol Succinate (Toprol Xl) 25 mg DAILY PO Last administered on at 08:45; Start 02/03/18 at 22:30; Stop 02/06/18 at 12:07; Status DC Simvastatin (Zocor) 20 mg HS PO Last administered on 02/07/18at 21:09; Start 02/04/18 at 21:00 Labetalol HCl (Normodyne Iv Push) 20 mg PRN Q2HR PRN IVP HYPERTENSION, SEE COMMENTS Last administered on 02/06/18at 11:17; Start 02/04/18 at 13:15 Labetalol HCl (Normodyne Iv Push) 20 mg PRN Q2HR PRN IVP HYPERTENSION, SEE COMMENTS; Start 02/04/18 at 13:45; Stop 02/04/18 at 13:46; Status DC Amlodipine Besylate (Norvasc) 5 mg DAILY PO Last administered on 02/06/18at 08: 45; Start 02/04/18 at 18:00; Stop 02/06/18 at 12:07; Status DC Ceftriaxone Sodium (Rocephin) 1 gm Q24H IVP Last administered on 02/07/18at 12: 36; Start 02/06/18 at 12:30 Amlodipine Besylate (Norvasc) 10 mg DAILY PO Last administered on 02/08/18at 09 :03; Start 02/07/18 at 09:00 Carvedilol (Coreg) 6.25 mg BIDWMEALS PO Last administered on 02/08/18at 09:03; Start 02/06/18 at 12:30 Amlodipine Besylate (Norvasc) 5 mg 1X ONCE PO Last administered on 02/06/18at 12:30; Start 02/06/18 at 12:30; Stop 02/06/18 at 12:31; Status DC Levothyroxine Sodium (Synthroid) 125 mcg DAILY06 PO Last administered on at 06:03; Start 02/06/18 at 12:30 Lisinopril (Prinivil) 5 mg BID PO Last administered on 02/08/18at 09:03; Start 02/06/18 at 14:30 Acetaminophen (Tylenol) 650 mg PRN Q6HRS PRN PO MILD PAIN / TEMP Last administered on 02/06/18at 19:55; Start 02/06/18 at 19:30 Lactobacillus Rhamnosus (Culturelle) 1 cap BID PO Last administered on at 09:03; Start 02/07/18 at 21:00 Allergies Allergies: Coded Allergies: No Known Drug Allergies (Unverified , 02/03/18) ROS General: YES: Fatigue, Appetite PSYCHOLOGICAL ROS: YES: Anxiety Eyes: Yes Decreased vision HEENT: YES: Heacaches Respiratory: YES: Cough Gastrointestinal: Yes Nausea, Yes Constipation Genitourinary: YES Other (NOCTURIA ONCE) Musculoskeletal: Yes Muscular Weakness Neurological: Yes Numbness/Tingling, Yes Speech Problems, Yes Weakness Skin: Yes Dry Skin Physical Exam General: Alert, Oriented X3, Cooperative, No acute distress HEENT: Atraumatic, PERRLA, EOMI, Mucous membr. moist/pink Lungs: Clear to auscultation, Normal air movement Heart: Regular rate Abdomen: Normal bowel sounds, Soft, No tenderness Extremities: No clubbing, No cyanosis Skin: No breakdown Neuro: Other (SLURRED SPEECH) Psych/Mental Status: Mental status NL, Mood NL MUSCULOSKELETAL: No deformity, No swelling Vitals VITALS Vital Signs Date Time Temp Pulse Resp B/P (MAP) Pulse Ox O2 Delivery O2 Flow Rate FiO2 02/08/18 09:03 63 130/77 02/08/18 08:00 Room Air 2.0 02/08/18 07:00 97.7 18 96 97.7 Labs Labs Laboratory Tests Test 02/06/18 13:10 02/07/18 07:30 Lactic Acid Level 1.9 mmol/L (0.4-2.0) White Blood Count 9.4 x10^3/uL (4.0-11.0) Red Blood Count 4.43 x10^6/uL (4.30-5.70) Hemoglobin 13.5 g/dL (13.0-17.5) Hematocrit 39.5 % (39.0-53.0) Mean Corpuscular Volume 89 fL (79-100) Mean Corpuscular Hemoglobin 31 pg (25-35) Mean Corpuscular Hemoglobin Concent 34 g/dL (31-37) Red Cell Distribution Width 14.1 % (11.5-14.5) Platelet Count 241 x10^3/uL (140-400) Neutrophils (%) (Auto) 65 % (31-73) Lymphocytes (%) (Auto) 19 % (24-48) Monocytes (%) (Auto) 11 % (0-9) Eosinophils (%) (Auto) 4 % (0-3) Basophils (%) (Auto) 1 % (0-3) Neutrophils # (Auto) 6.1 x10^3uL (1.8-7.7) Lymphocytes # (Auto) 1.8 x10^3/uL (1.0-4.8) Monocytes # (Auto) 1.0 x10^3/uL (0.0-1.1) Eosinophils # (Auto) 0.4 x10^3/uL (0.0-0.7) Basophils # (Auto) 0.1 x10^3/uL (0.0-0.2) Platelet Estimate Adequate (ADEQUATE) Large Platelets Present Giant Platelets Present Sodium Level 140 mmol/L (136-145) Potassium Level 4.0 mmol/L (3.5-5.1) Chloride Level 104 mmol/L (98-107) Carbon Dioxide Level 23 mmol/L (21-32) Anion Gap 13 (6-14) Blood Urea Nitrogen 25 mg/dL (8-26) Creatinine 1.6 mg/dL (0.7-1.3) Estimated GFR (Cockcroft-Gault) 44.9 BUN/Creatinine Ratio 16 (6-20) Glucose Level 105 mg/dL (70-99) Calcium Level 9.3 mg/dL (8.5-10.1) Total Bilirubin 0.9 mg/dL (0.2-1.0) Aspartate Amino Transf (AST/SGOT) 26 U/L (15-37) Alanine Aminotransferase (ALT/SGPT) 50 U/L (16-63) Alkaline Phosphatase 58 U/L (46-116) Total Protein 7.9 g/dL (6.4-8.2) Albumin 3.5 g/dL (3.4-5.0) Albumin/Globulin Ratio 0.8 (1.0-1.7) Assessment/Plan Assessment/Plan IMP ICB HTN CKD STAGE 3 PLAN ENC COMPLIANCE HAS NOT BEEN SEEING ANY PHYSICIANS EXPLAINED TO PT PROBLEMS WITH END ORGAN DAMAGE WITH HTN RENAL SONOGRAM UA NEG FOR ANY NEPHRITIS CONT ARB AND DERREK-I DELVIS SMITH MD Feb 08, 2018 11:50
[2018-02-08] MEDS: cefTRIAXone IV Push 1 GM VIAL. IVP SCH (13:07)
[2018-02-08] MEDS: ACETAMINOPHEN 325 MG TABLET. PO PRN (16:21)
[2018-02-08] MEDS: SIMVASTATIN 20 MG TABLET PO SCH (20:45)
[2018-02-08] MEDS: LABETALOL 20 MG/4 ML DISP.SYRIN. IVP PRN (23:23)
[2018-02-09 02:59] VITALS: BP 139/94
[2018-02-09 04:59] LABS: CALCIUM 9.4 mg/dL (8.5-10.1); CREATININE 1.6 mg/dL (0.7-1.3); GFR 44.9
[2018-02-09] MEDS: LEVOTHYROXINE 125 MCG TABLET PO SCH (06:08)
[2018-02-09 07:00] VITALS: BP 167/91
[2018-02-09] MEDS: LACTOBACILLUS RHAMNOSUS GG 1 CAPSULE. PO SCH ×2 (08:12→21:48)
[2018-02-09] MEDS: LISINOPRIL 5 MG TABLET. PO SCH ×2 (08:13→21:51)
[2018-02-09] MEDS: CARVEDILOL 6.25 MG TABLET. PO SCH ×2 (08:13→16:20)
[2018-02-09] MEDS: amLODIPine BESYLATE 10 MG TABLET PO SCH (08:14)
--- NOTE | 2018-02-09 08:20 | RAD ---
Renal ultrasound, 02/08/2018: HISTORY: Acute renal insufficiency The right kidney measures 10.2 cm in length while the left kidney measures 10.6 cm. There is no evidence of hydronephrosis or a renal mass. The renal parenchymal echogenicity is within normal limits. The partially filled urinary bladder is unremarkable. IMPRESSION: No significant renal abnormality is detected. Electronically signed by: Bubba Serna MD (02/09/2018 8:16 AM) [facility]
[2018-02-09 11:00] VITALS: BP 139/84
--- NOTE | 2018-02-09 11:05 | PDOC ---
Renal-Progress Notes Subjective Notes Notes NO NEW COMPLAINTS History of Present Illness Hx of present illness SLEEPY Vitals Vitals Vital Signs Date Time Temp Pulse Resp B/P (MAP) Pulse Ox O2 Delivery O2 Flow Rate FiO2 02/09/18 08:14 65 167/91 02/09/18 07:00 97.7 18 97 Room Air 97.7 02/08/18 08:00 2.0 Weight Weight [ ] I.O. Intake and Output Intake and Output 02/09/18 07:01 Intake Total 120 ml Balance 120 ml Intake Oral 120 ml # Voids 6 Labs Labs Laboratory Tests Test 02/09/18 04:15 Sodium Level 138 mmol/L (136-145) Potassium Level 4.0 mmol/L (3.5-5.1) Chloride Level 103 mmol/L (98-107) Carbon Dioxide Level 23 mmol/L (21-32) Anion Gap 12 (6-14) Blood Urea Nitrogen 27 mg/dL (8-26) Creatinine 1.6 mg/dL (0.7-1.3) Estimated GFR (Cockcroft-Gault) 44.9 Glucose Level 104 mg/dL (70-99) Calcium Level 9.4 mg/dL (8.5-10.1) Micro Micro Microbiology 02/06/18 Blood Culture - Preliminary, Resulted NO GROWTH AFTER 2 DAYS Review of Systems Constitutional: yes: alert, oriented Ears/Nose/Throat: Yes: no symptom reported Eyes: Yes: no symptom reported Pulmonary: Yes no symptom reported Cardiovascular: Yes no symptom reported Gastrointestional: Yes: no symptom reported Genitourinary: Yes: no symptom reported Musculoskeletal: Yes: no symptom reported Skin: Yes no symptom reported Psychiatric/Neurological: Yes: no symptom reported Endocrine: Yes: no symptom reported Physical Exam General Appearance: no apparent distress, febrile Respiratory: bilateral CTA Heart: S1S2, RRR Abdomen: soft, bowel sounds present Genitourinary: bladder flat Extremities: pulses present Neurology: alert, oriented Musculoskeletal: Other (no pertinent hx) Assessment Assessment IMP HTN ICB CKD STAGE 3 PLAN NEEDS BETTER HTN CONTROL INCREASE LISINOPRIL ADD CLONIDINE RENAL SONO NEG UA DELVIS FLORES MD Feb 09, 2018 11:05
--- NOTE | 2018-02-09 12:26 | PDOC ---
PROGRESS NOTES Chief Complaint Chief Complaint Intraparenchymal hemorrhage of the right basal ganglia with mild associated edema Hypertensive crisis Headache, secondary to above morbid obesity possible JOSE, secondary to above Hypothyroidism, TSH 15.636 ADD CLONIDINE thyroid replacement po SEE PCP YURIDIA INSISTS ON DISCHARGE TODAY History of Present Illness History of Present Illness pt. seen and examined bedside Talked with nursing await rehab placement, PATIENT REFUSES THIS, LACK OF GOOD INSURANCE COVERAGE, ALSO REFUSES HOME HEALTH AMA low fat diet reviewed with family Vitals Vitals Vital Signs Date Time Temp Pulse Resp B/P (MAP) Pulse Ox O2 Delivery O2 Flow Rate FiO2 02/09/18 11:00 97.9 65 18 139/84 (102) 97 Room Air 97.9 02/09/18 08:00 2.0 Physical Exam General: Alert, Oriented X3, Cooperative, No acute distress Heart: Regular rate, Normal S1, Normal S2 Lungs: Clear Abdomen: Normal bowel sounds, Soft, No tenderness Extremities: No clubbing, No cyanosis Skin: No breakdown Labs LABS Laboratory Tests Test 02/09/18 04:15 Sodium Level 138 mmol/L (136-145) Potassium Level 4.0 mmol/L (3.5-5.1) Chloride Level 103 mmol/L (98-107) Carbon Dioxide Level 23 mmol/L (21-32) Anion Gap 12 (6-14) Blood Urea Nitrogen 27 mg/dL (8-26) Creatinine 1.6 mg/dL (0.7-1.3) Estimated GFR (Cockcroft-Gault) 44.9 Glucose Level 104 mg/dL (70-99) Calcium Level 9.4 mg/dL (8.5-10.1) Assessment and Plan Assessmemt and Plan Problems Medical Problems: (1) Hypertensive emergency Status: Acute (2) Intraparenchymal hemorrhage of brain Status: Acute ransfer Comments * Patient transferred in and out of rehab car with SBA. Cues provided for sitting with both feet outside of car then swinging legs into car to increase safety. Patient verbalized and demonstrated understanding. Patient did requrie minimum assist to step in and out of mock bathtub when not using estrada or rails to steady self. Ambulation Assistance Required * Independent Ambulation Assistive Device * No Device Ambulation Distance * 500+ feet Gait Impairments * Wide Base of Support Ambulation Comments * Gait pattern relatively normal except for slightly widened base of support and decreased L arm swing. L arm tends to hang at patietn's side. Gait was challenged this date by PT instructing patient to find various rooms on the unit as well as items that were placed around the unit. Patient also given 2 step commands related to path finding. These distractions and multi-step directions did not affect koby's independence with ambulation. In rehab gym (room with bathtub, car, etc) patient demonstrated the ability to ambulate forward, backward, sideways with no loss of balance and no physical assist. Stairs Assistance Required * Stand-by Assistance Number of Stairs * >9 Stairs Assistive Device * Rail on Right Stairs Comments * Patient ascended/descended flight of 10 stairs x 2 separate attemtps. He reports that his knees bother him on stairs so he always manage stairs sideways. On first attempt, patient tended to use R hand on rail behind him while ascending/descending sideways. PT instructed patient to utilize rail in front of him so he can see what he's doing. No loss of balance, but it is unclear how much UE assist patient will have for stairs at home since the construction project is not complete. Balance Exercises * Standing Balance Exercises Comments * Forward/backward/sideways walking Other Information * Patient is making excellent progress toward goals. He continues to be very limited, however, by L UE. ARU is still recommended at discharge if able (but mostly due to speech and OT deficits) as ambulation, balance, and LE strength deficits are much improved. If ARU is not an option, patient would benefit from intensive outpatient PT to simulate work tasks such as climbing ladders, getting up and down from floor, using bilateral UEs (patient is L handed) for high level work tasks, etc. Discharging home alone to his un-finished house is not the most practical plan. Testing considered to assess G code/modifier * [facility] Functional Outcomes Learning Preferences * One-on-One Instruction * Audio * Visual * Demonstration Problem List (body system elements) * Impaired fnctnl mobility * Heart Rate * Strength * Blood Pressure * Obesity * Balance * Respiration/perfusion * Coordination * Knowledge-safe techniques * Pain Patient condition at conclusion of therapy * Pt in chair * Call light in reach * Phone in reach * PtIn no apparent distress * Pt denies further needs Communicated Patient Care With (Name, Title) * NICKIE Escobar Goal 1 - Bed Mobility Assistance Required * Independent Goal 1 Assessment * Appropriate - Continue Goal 2 - Transfers Assistance Required * Independent Goal 2 - Transfer Type * Sit to Stand Goal 2 Assessment * Goal Met Goal 3 - Ambulation Assistance Required * Independent Goal 3 - Ambulation Distance * 250' Goal 3 - Ambulation Device * No Device Goal 3 Assessment * Goal Met Goal 4 - Stairs Assistance Required * Independent Goal 4 - Number of Stairs * 5-9 Goal 4 - Device on Stairs * Rail on Right Goal 4 Assessment * Appropriate - Continue Treatment Plan * Therapeutic Exercise * Bed Mobility Training * Transfer training * Gait Training * Neuromuscular Re-Ed * Dynamic Balance Training Frequency of Treatment Expected * 12 visits/week Duration of Treatment Expected * 2 weeks Discharge Recommendations * Acute Rehab facility Discharge Recommendation Comments * Home with OP PT if patient progresses beyond the need for ARU Comment Review of Relevant I have reviewed the following items wayne (where applicable) has been applied. Labs Laboratory Tests Test 02/09/18 04:15 Sodium Level 138 mmol/L (136-145) Potassium Level 4.0 mmol/L (3.5-5.1) Chloride Level 103 mmol/L (98-107) Carbon Dioxide Level 23 mmol/L (21-32) Anion Gap 12 (6-14) Blood Urea Nitrogen 27 mg/dL (8-26) Creatinine 1.6 mg/dL (0.7-1.3) Estimated GFR (Cockcroft-Gault) 44.9 Glucose Level 104 mg/dL (70-99) Calcium Level 9.4 mg/dL (8.5-10.1) Laboratory Tests Test 02/09/18 04:15 Sodium Level 138 mmol/L (136-145) Potassium Level 4.0 mmol/L (3.5-5.1) Chloride Level 103 mmol/L (98-107) Carbon Dioxide Level 23 mmol/L (21-32) Anion Gap 12 (6-14) Blood Urea Nitrogen 27 mg/dL (8-26) Creatinine 1.6 mg/dL (0.7-1.3) Estimated GFR (Cockcroft-Gault) 44.9 Glucose Level 104 mg/dL (70-99) Calcium Level 9.4 mg/dL (8.5-10.1) Microbiology 02/06/18 Blood Culture - Preliminary, Resulted NO GROWTH AFTER 2 DAYS Medications Current Medications Labetalol HCl (Normodyne Iv Push) 20 mg 1X ONCE IVP Last administered on 02/03at 12:26; Start 02/03/18 at 12:15; Stop 02/03/18 at 12:16; Status DC Nicardipine HCl 50 mg/Sodium Chloride 270 ml @ 27 mls/hr CONT PRN IV SEE I/O RECORD Last administered on 02/04/18at 22:26; Start 02/03/18 at 12:30; Stop at 12:13; Status DC Ondansetron HCl (Zofran) 4 mg PRN Q8HRS PRN IV NAUSEA/VOMITING; Start at 13:15; Stop 02/04/18 at 13:14; Status DC Fentanyl Citrate (Fentanyl 2ml Vial) 50 mcg PRN Q1HR PRN IV PAIN; Start at 13:15; Stop 02/04/18 at 13:14; Status DC Metoprolol Succinate (Toprol Xl) 25 mg DAILY PO Last administered on at 08:45; Start 02/03/18 at 22:30; Stop 02/06/18 at 12:07; Status DC Simvastatin (Zocor) 20 mg HS PO Last administered on 02/08/18at 20:45; Start 02/04/18 at 21:00 Labetalol HCl (Normodyne Iv Push) 20 mg PRN Q2HR PRN IVP HYPERTENSION, SEE COMMENTS Last administered on 02/08/18at 23:23; Start 02/04/18 at 13:15 Labetalol HCl (Normodyne Iv Push) 20 mg PRN Q2HR PRN IVP HYPERTENSION, SEE COMMENTS; Start 02/04/18 at 13:45; Stop 02/04/18 at 13:46; Status DC Amlodipine Besylate (Norvasc) 5 mg DAILY PO Last administered on 02/06/18at 08: 45; Start 02/04/18 at 18:00; Stop 02/06/18 at 12:07; Status DC Ceftriaxone Sodium (Rocephin) 1 gm Q24H IVP Last administered on 02/08/18at 13: 07; Start 02/06/18 at 12:30 Amlodipine Besylate (Norvasc) 10 mg DAILY PO Last administered on 02/09/18at 08 :14; Start 02/07/18 at 09:00 Carvedilol (Coreg) 6.25 mg BIDWMEALS PO Last administered on 02/09/18at 08:13; Start 02/06/18 at 12:30 Amlodipine Besylate (Norvasc) 5 mg 1X ONCE PO Last administered on 02/06/18at 12:30; Start 02/06/18 at 12:30; Stop 02/06/18 at 12:31; Status DC Levothyroxine Sodium (Synthroid) 125 mcg DAILY06 PO Last administered on at 06:08; Start 02/06/18 at 12:30 Lisinopril (Prinivil) 5 mg BID PO Last administered on 02/09/18at 08:13; Start 02/06/18 at 14:30; Stop 02/09/18 at 11:06; Status DC Acetaminophen (Tylenol) 650 mg PRN Q6HRS PRN PO MILD PAIN / TEMP Last administered on 02/08/18at 16:21; Start 02/06/18 at 19:30 Lactobacillus Rhamnosus (Culturelle) 1 cap BID PO Last administered on at 08:12; Start 02/07/18 at 21:00 Lisinopril (Prinivil) 10 mg BID PO ; Start 02/09/18 at 21:00 Clonidine HCl (Catapres) 0.1 mg Q8HRS PO ; Start 02/09/18 at 14:00 Vitals/I & O Vital Sign - Last 24 Hours 02/08/18 02/08/18 02/08/18 02/08/18 16:00 16:20 19:00 19:50 Temp 98.1 98.6 98.1 98.6 Pulse 66 62 72 Resp 18 20 B/P (MAP) 161/87 (111) 145/81 163/90 (114) Pulse Ox 98 97 O2 Delivery Room Air Room Air Room Air 02/08/18 02/08/18 02/08/18 02/08/18 20:46 22:38 22:43 23:23 Temp 98.1 98.1 98.1 98.1 Pulse 72 64 64 64 Resp 19 B/P (MAP) 163/90 188/100 (129) 188/100 (129) 188/100 Pulse Ox 96 96 O2 Delivery Room Air Room Air 02/09/18 02/09/18 02/09/18 02/09/18 02:59 07:00 08:00 08:13 Temp 98.1 97.7 98.1 97.7 Pulse 83 65 65 Resp 19 18 B/P (MAP) 139/94 (109) 167/91 (116) 167/91 Pulse Ox 99 97 O2 Delivery Room Air Room Air Room Air O2 Flow Rate 2.0 02/09/18 02/09/18 02/09/18 08:13 08:14 11:00 Temp 97.9 97.9 Pulse 65 65 65 Resp 18 B/P (MAP) 167/91 167/91 139/84 (102) Pulse Ox 97 O2 Delivery Room Air Intake and Output 02/08/18 02/08/18 02/09/18 15:01 23:01 07:01 Intake Total 120 ml Balance 120 ml HECTOR MURDOCK MD Feb 09, 2018 12:26
[2018-02-09] MEDS: cefTRIAXone IV Push 1 GM VIAL. IVP SCH (13:11)
[2018-02-09] MEDS: cloNIDine HCL 0.1 MG TABLET PO SCH ×2 (13:12→21:50)
--- NOTE | 2018-02-09 13:13 | PDOC ---
PROGRESS NOTES Assessment Problems Medical Problems: (1) Hypertensive emergency Status: Acute (2) Intraparenchymal hemorrhage of brain Status: Acute Right basal ganglia hypertensive intracranial hemorrhage Plan Note patient's wish to leave and refuse rehab, inpatient or outpatient Zocor 20 mg HS. Avoid antiplatelet and anticoagulant agents at the present time. BP control. Treat thyroid disease per medical team. Transfer to inpatient rehabilitation Subjective no complaints, no headache Objective Vital Signs Date Time Temp Pulse Resp B/P (MAP) Pulse Ox O2 Delivery O2 Flow Rate FiO2 02/09/18 11:00 97.9 65 18 139/84 (102) 97 Room Air 97.9 02/09/18 08:00 2.0 Intake and Output 02/09/18 07:01 Intake Total 120 ml Balance 120 ml Intake Oral 120 ml # Voids 6 PHYSICAL EXAM Alert. Oriented to time, place and person. PERRL. EOMI. CN: no focal findings. Muscle tone: normal. Muscle strength: 4/5 left hemiparesis DTR: 1+ Plantar reflex: flexor Gait: not examined in bed. Sensory exam: no abnormal findings. No cerebellar signs elicited. Review of Relevant I have reviewed the following items wayne (where applicable) has been applied. Labs Laboratory Tests Test 02/09/18 04:15 Sodium Level 138 mmol/L (136-145) Potassium Level 4.0 mmol/L (3.5-5.1) Chloride Level 103 mmol/L (98-107) Carbon Dioxide Level 23 mmol/L (21-32) Anion Gap 12 (6-14) Blood Urea Nitrogen 27 mg/dL (8-26) Creatinine 1.6 mg/dL (0.7-1.3) Estimated GFR (Cockcroft-Gault) 44.9 Glucose Level 104 mg/dL (70-99) Calcium Level 9.4 mg/dL (8.5-10.1) Laboratory Tests Test 02/09/18 04:15 Sodium Level 138 mmol/L (136-145) Potassium Level 4.0 mmol/L (3.5-5.1) Chloride Level 103 mmol/L (98-107) Carbon Dioxide Level 23 mmol/L (21-32) Anion Gap 12 (6-14) Blood Urea Nitrogen 27 mg/dL (8-26) Creatinine 1.6 mg/dL (0.7-1.3) Estimated GFR (Cockcroft-Gault) 44.9 Glucose Level 104 mg/dL (70-99) Calcium Level 9.4 mg/dL (8.5-10.1) Microbiology 02/06/18 Blood Culture - Preliminary, Resulted NO GROWTH AFTER 2 DAYS Medications Current Medications Labetalol HCl (Normodyne Iv Push) 20 mg 1X ONCE IVP Last administered on 02/03at 12:26; Start 02/03/18 at 12:15; Stop 02/03/18 at 12:16; Status DC Nicardipine HCl 50 mg/Sodium Chloride 270 ml @ 27 mls/hr CONT PRN IV SEE I/O RECORD Last administered on 02/04/18at 22:26; Start 02/03/18 at 12:30; Stop at 12:13; Status DC Ondansetron HCl (Zofran) 4 mg PRN Q8HRS PRN IV NAUSEA/VOMITING; Start at 13:15; Stop 02/04/18 at 13:14; Status DC Fentanyl Citrate (Fentanyl 2ml Vial) 50 mcg PRN Q1HR PRN IV PAIN; Start at 13:15; Stop 02/04/18 at 13:14; Status DC Metoprolol Succinate (Toprol Xl) 25 mg DAILY PO Last administered on at 08:45; Start 02/03/18 at 22:30; Stop 02/06/18 at 12:07; Status DC Simvastatin (Zocor) 20 mg HS PO Last administered on 02/08/18at 20:45; Start 02/04/18 at 21:00 Labetalol HCl (Normodyne Iv Push) 20 mg PRN Q2HR PRN IVP HYPERTENSION, SEE COMMENTS Last administered on 02/08/18at 23:23; Start 02/04/18 at 13:15 Labetalol HCl (Normodyne Iv Push) 20 mg PRN Q2HR PRN IVP HYPERTENSION, SEE COMMENTS; Start 02/04/18 at 13:45; Stop 02/04/18 at 13:46; Status DC Amlodipine Besylate (Norvasc) 5 mg DAILY PO Last administered on 02/06/18at 08: 45; Start 02/04/18 at 18:00; Stop 02/06/18 at 12:07; Status DC Ceftriaxone Sodium (Rocephin) 1 gm Q24H IVP Last administered on 02/08/18at 13: 07; Start 02/06/18 at 12:30 Amlodipine Besylate (Norvasc) 10 mg DAILY PO Last administered on 02/09/18at 08 :14; Start 02/07/18 at 09:00 Carvedilol (Coreg) 6.25 mg BIDWMEALS PO Last administered on 02/09/18at 08:13; Start 02/06/18 at 12:30 Amlodipine Besylate (Norvasc) 5 mg 1X ONCE PO Last administered on 02/06/18at 12:30; Start 02/06/18 at 12:30; Stop 02/06/18 at 12:31; Status DC Levothyroxine Sodium (Synthroid) 125 mcg DAILY06 PO Last administered on at 06:08; Start 02/06/18 at 12:30 Lisinopril (Prinivil) 5 mg BID PO Last administered on 02/09/18at 08:13; Start 02/06/18 at 14:30; Stop 02/09/18 at 11:06; Status DC Acetaminophen (Tylenol) 650 mg PRN Q6HRS PRN PO MILD PAIN / TEMP Last administered on 02/08/18at 16:21; Start 02/06/18 at 19:30 Lactobacillus Rhamnosus (Culturelle) 1 cap BID PO Last administered on at 08:12; Start 02/07/18 at 21:00 Lisinopril (Prinivil) 10 mg BID PO ; Start 02/09/18 at 21:00 Clonidine HCl (Catapres) 0.1 mg Q8HRS PO ; Start 02/09/18 at 14:00 Vitals/I & O Vital Sign - Last 24 Hours 02/08/18 02/08/18 02/08/18 02/08/18 16:00 16:20 19:00 19:50 Temp 98.1 98.6 98.1 98.6 Pulse 66 62 72 Resp 18 20 B/P (MAP) 161/87 (111) 145/81 163/90 (114) Pulse Ox 98 97 O2 Delivery Room Air Room Air Room Air 02/08/18 02/08/18 02/08/18 02/08/18 20:46 22:38 22:43 23:23 Temp 98.1 98.1 98.1 98.1 Pulse 72 64 64 64 Resp 19 B/P (MAP) 163/90 188/100 (129) 188/100 (129) 188/100 Pulse Ox 96 96 O2 Delivery Room Air Room Air 02/09/18 02/09/18 02/09/18 02/09/18 02:59 07:00 08:00 08:13 Temp 98.1 97.7 98.1 97.7 Pulse 83 65 65 Resp 19 18 B/P (MAP) 139/94 (109) 167/91 (116) 167/91 Pulse Ox 99 97 O2 Delivery Room Air Room Air Room Air O2 Flow Rate 2.0 02/09/18 02/09/18 02/09/18 08:13 08:14 11:00 Temp 97.9 97.9 Pulse 65 65 65 Resp 18 B/P (MAP) 167/91 167/91 139/84 (102) Pulse Ox 97 O2 Delivery Room Air Intake and Output 02/08/18 02/08/18 02/09/18 15:01 23:01 07:01 Intake Total 120 ml Balance 120 ml LYNDON BARRETO MD Feb 09, 2018 13:12
[2018-02-09 15:22] VITALS: BP 142/82
[2018-02-09 19:00] VITALS: BP 162/77
[2018-02-09] MEDS: SIMVASTATIN 20 MG TABLET PO SCH (21:48)
[2018-02-09 23:00] VITALS: BP 119/63
[2018-02-10 02:53] VITALS: BP 128/86
[2018-02-10 03:48] LABS: BASO # 0.1 x10^3/uL (0.0-0.2); BASO % 1 % (0-3); EOS # 0.4 x10^3/uL (0.0-0.7); EOS % 4 % (0-3); HEMATOCRIT 36.8 % (39.0-53.0); HEMOGLOBIN 12.8 g/dL (13.0-17.5); LYMPH # 1.9 x10^3/uL (1.0-4.8); LYMPH % 19 % (24-48); MEAN CORPUSCULAR HEMOGLOBIN 31 pg (25-35); MEAN CORPUSCULAR HGB CONC 35 g/dL (31-37); MEAN CORPUSCULAR VOLUME 88 fL (79-100); MONO # 1.2 x10^3/uL (0.0-1.1); MONO % 12 % (0-9); NEUT # 6.7 x10^3uL (1.8-7.7); NEUT % 65 % (31-73); PLATELET COUNT 257 x10^3/uL (140-400); RED BLOOD COUNT 4.16 x10^6/uL (4.30-5.70); RED CELL DISTRIBUTION WIDTH 14.4 % (11.5-14.5); WHITE BLOOD COUNT 10.2 x10^3/uL (4.0-11.0)
[2018-02-10 04:14] LABS: CREATININE 1.7 mg/dL (0.7-1.3); GFR 41.9; POTASSIUM 4.2 mmol/L (3.5-5.1)
[2018-02-10] MEDS: LEVOTHYROXINE 125 MCG TABLET PO SCH (06:35)
[2018-02-10] MEDS: cloNIDine HCL 0.1 MG TABLET PO SCH ×3 (06:36→23:11)
[2018-02-10 07:30] VITALS: BP 149/90
[2018-02-10] MEDS: CARVEDILOL 6.25 MG TABLET. PO SCH ×2 (08:09→16:29)
[2018-02-10] MEDS: LACTOBACILLUS RHAMNOSUS GG 1 CAPSULE. PO SCH ×2 (08:45→21:06)
[2018-02-10] MEDS: LISINOPRIL 5 MG TABLET. PO SCH ×2 (08:46→21:06)
[2018-02-10] MEDS: amLODIPine BESYLATE 10 MG TABLET PO SCH (08:46)
--- NOTE | 2018-02-10 10:24 | PDOC ---
Renal-Progress Notes Subjective Notes Notes NONE History of Present Illness Hx of present illness NO CHANGE Vitals Vitals Vital Signs Date Time Temp Pulse Resp B/P (MAP) Pulse Ox O2 Delivery O2 Flow Rate FiO2 02/10/18 08:46 112 149/90 02/10/18 07:35 Room Air 02/10/18 07:30 97.2 18 97.2 02/10/18 02:53 98 02/09/18 08:00 2.0 Weight Weight [ ] I.O. Intake and Output Intake and Output 02/10/18 07:01 Intake Total 120 ml Balance 120 ml Intake Oral 120 ml # Voids 2 Labs Labs Laboratory Tests Test 02/10/18 03:15 White Blood Count 10.2 x10^3/uL (4.0-11.0) Red Blood Count 4.16 x10^6/uL (4.30-5.70) Hemoglobin 12.8 g/dL (13.0-17.5) Hematocrit 36.8 % (39.0-53.0) Mean Corpuscular Volume 88 fL (79-100) Mean Corpuscular Hemoglobin 31 pg (25-35) Mean Corpuscular Hemoglobin Concent 35 g/dL (31-37) Red Cell Distribution Width 14.4 % (11.5-14.5) Platelet Count 257 x10^3/uL (140-400) Neutrophils (%) (Auto) 65 % (31-73) Lymphocytes (%) (Auto) 19 % (24-48) Monocytes (%) (Auto) 12 % (0-9) Eosinophils (%) (Auto) 4 % (0-3) Basophils (%) (Auto) 1 % (0-3) Neutrophils # (Auto) 6.7 x10^3uL (1.8-7.7) Lymphocytes # (Auto) 1.9 x10^3/uL (1.0-4.8) Monocytes # (Auto) 1.2 x10^3/uL (0.0-1.1) Eosinophils # (Auto) 0.4 x10^3/uL (0.0-0.7) Basophils # (Auto) 0.1 x10^3/uL (0.0-0.2) Sodium Level 139 mmol/L (136-145) Potassium Level 4.2 mmol/L (3.5-5.1) Chloride Level 104 mmol/L (98-107) Carbon Dioxide Level 24 mmol/L (21-32) Anion Gap 11 (6-14) Blood Urea Nitrogen 27 mg/dL (8-26) Creatinine 1.7 mg/dL (0.7-1.3) Estimated GFR (Cockcroft-Gault) 41.9 Glucose Level 111 mg/dL (70-99) Calcium Level 9.0 mg/dL (8.5-10.1) Micro Micro Microbiology 02/06/18 Blood Culture - Preliminary, Resulted NO GROWTH AFTER 3 DAYS Review of Systems Constitutional: yes: alert, oriented Ears/Nose/Throat: Yes: no symptom reported Eyes: Yes: no symptom reported Pulmonary: Yes no symptom reported Cardiovascular: Yes no symptom reported Gastrointestional: Yes: no symptom reported Genitourinary: Yes: no symptom reported Musculoskeletal: Yes: no symptom reported Skin: Yes no symptom reported Psychiatric/Neurological: Yes: no symptom reported Endocrine: Yes: no symptom reported Physical Exam General Appearance: no apparent distress, febrile Respiratory: bilateral CTA Heart: S1S2, RRR Abdomen: soft, bowel sounds present Genitourinary: bladder flat Extremities: pulses present Neurology: alert, oriented Musculoskeletal: Other (no pertinent hx) Assessment Assessment IMP HTN-IMPROVED ICB CKD STAGE 3-CR STABLE AT 1.6 PLAN INCREASE CLONIDINE RENAL SONO NEG UA DELVIS FLORES MD Feb 10, 2018 10:24
[2018-02-10 11:20] VITALS: BP 122/74
[2018-02-10] MEDS: cefTRIAXone IV Push 1 GM VIAL. IVP SCH (12:20)
--- NOTE | 2018-02-10 12:27 | PDOC ---
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 seen and examined bedside Talked with nursing Overnight and today his BP was up. increased clonidine. TSH >15, on oral replacement with low FT4 as well. He is feeling stronger in his left leg. Able to shower. Now he feels his left hand is only slightly weaker than his right ( left-handed). await rehab placement, he is amenable, wants to keep costs down, also wants to consider rehab with his brother in [place], [place]. He wishes for case management and social work not to discuss with his ex-. low fat diet reviewed Ok for visitors, 11 year old child Vitals Vitals Vital Signs Date Time Temp Pulse Resp B/P (MAP) Pulse Ox O2 Delivery O2 Flow Rate FiO2 02/10/18 11:20 98.5 86 16 122/74 (90) Room Air 98.5 02/10/18 02:53 98 02/09/18 08:00 2.0 Physical Exam General: Alert, Oriented X3, Cooperative, No acute distress Heart: Regular rate, Normal S1, Normal S2 Lungs: Clear Abdomen: Normal bowel sounds, Soft, No tenderness Extremities: No clubbing, No cyanosis Skin: No breakdown Labs LABS Laboratory Tests Test 02/10/18 03:15 White Blood Count 10.2 x10^3/uL (4.0-11.0) Red Blood Count 4.16 x10^6/uL (4.30-5.70) Hemoglobin 12.8 g/dL (13.0-17.5) Hematocrit 36.8 % (39.0-53.0) Mean Corpuscular Volume 88 fL (79-100) Mean Corpuscular Hemoglobin 31 pg (25-35) Mean Corpuscular Hemoglobin Concent 35 g/dL (31-37) Red Cell Distribution Width 14.4 % (11.5-14.5) Platelet Count 257 x10^3/uL (140-400) Neutrophils (%) (Auto) 65 % (31-73) Lymphocytes (%) (Auto) 19 % (24-48) Monocytes (%) (Auto) 12 % (0-9) Eosinophils (%) (Auto) 4 % (0-3) Basophils (%) (Auto) 1 % (0-3) Neutrophils # (Auto) 6.7 x10^3uL (1.8-7.7) Lymphocytes # (Auto) 1.9 x10^3/uL (1.0-4.8) Monocytes # (Auto) 1.2 x10^3/uL (0.0-1.1) Eosinophils # (Auto) 0.4 x10^3/uL (0.0-0.7) Basophils # (Auto) 0.1 x10^3/uL (0.0-0.2) Sodium Level 139 mmol/L (136-145) Potassium Level 4.2 mmol/L (3.5-5.1) Chloride Level 104 mmol/L (98-107) Carbon Dioxide Level 24 mmol/L (21-32) Anion Gap 11 (6-14) Blood Urea Nitrogen 27 mg/dL (8-26) Creatinine 1.7 mg/dL (0.7-1.3) Estimated GFR (Cockcroft-Gault) 41.9 Glucose Level 111 mg/dL (70-99) Calcium Level 9.0 mg/dL (8.5-10.1) Assessment and Plan Assessmemt and Plan Problems Medical Problems: (1) Hypertensive emergency Status: Acute (2) Intraparenchymal hemorrhage of brain Status: Acute Comment Review of Relevant I have reviewed the following items wayne (where applicable) has been applied. Labs Laboratory Tests Test 02/09/18 04:15 02/10/18 03:15 Sodium Level 138 mmol/L (136-145) 139 mmol/L (136-145) Potassium Level 4.0 mmol/L (3.5-5.1) 4.2 mmol/L (3.5-5.1) Chloride Level 103 mmol/L (98-107) 104 mmol/L (98-107) Carbon Dioxide Level 23 mmol/L (21-32) 24 mmol/L (21-32) Anion Gap 12 (6-14) 11 (6-14) Blood Urea Nitrogen 27 mg/dL (8-26) 27 mg/dL (8-26) Creatinine 1.6 mg/dL (0.7-1.3) 1.7 mg/dL (0.7-1.3) Estimated GFR (Cockcroft-Gault) 44.9 41.9 Glucose Level 104 mg/dL (70-99) 111 mg/dL (70-99) Calcium Level 9.4 mg/dL (8.5-10.1) 9.0 mg/dL (8.5-10.1) White Blood Count 10.2 x10^3/uL (4.0-11.0) Red Blood Count 4.16 x10^6/uL (4.30-5.70) Hemoglobin 12.8 g/dL (13.0-17.5) Hematocrit 36.8 % (39.0-53.0) Mean Corpuscular Volume 88 fL (79-100) Mean Corpuscular Hemoglobin 31 pg (25-35) Mean Corpuscular Hemoglobin Concent 35 g/dL (31-37) Red Cell Distribution Width 14.4 % (11.5-14.5) Platelet Count 257 x10^3/uL (140-400) Neutrophils (%) (Auto) 65 % (31-73) Lymphocytes (%) (Auto) 19 % (24-48) Monocytes (%) (Auto) 12 % (0-9) Eosinophils (%) (Auto) 4 % (0-3) Basophils (%) (Auto) 1 % (0-3) Neutrophils # (Auto) 6.7 x10^3uL (1.8-7.7) Lymphocytes # (Auto) 1.9 x10^3/uL (1.0-4.8) Monocytes # (Auto) 1.2 x10^3/uL (0.0-1.1) Eosinophils # (Auto) 0.4 x10^3/uL (0.0-0.7) Basophils # (Auto) 0.1 x10^3/uL (0.0-0.2) Laboratory Tests Test 02/10/18 03:15 White Blood Count 10.2 x10^3/uL (4.0-11.0) Red Blood Count 4.16 x10^6/uL (4.30-5.70) Hemoglobin 12.8 g/dL (13.0-17.5) Hematocrit 36.8 % (39.0-53.0) Mean Corpuscular Volume 88 fL (79-100) Mean Corpuscular Hemoglobin 31 pg (25-35) Mean Corpuscular Hemoglobin Concent 35 g/dL (31-37) Red Cell Distribution Width 14.4 % (11.5-14.5) Platelet Count 257 x10^3/uL (140-400) Neutrophils (%) (Auto) 65 % (31-73) Lymphocytes (%) (Auto) 19 % (24-48) Monocytes (%) (Auto) 12 % (0-9) Eosinophils (%) (Auto) 4 % (0-3) Basophils (%) (Auto) 1 % (0-3) Neutrophils # (Auto) 6.7 x10^3uL (1.8-7.7) Lymphocytes # (Auto) 1.9 x10^3/uL (1.0-4.8) Monocytes # (Auto) 1.2 x10^3/uL (0.0-1.1) Eosinophils # (Auto) 0.4 x10^3/uL (0.0-0.7) Basophils # (Auto) 0.1 x10^3/uL (0.0-0.2) Sodium Level 139 mmol/L (136-145) Potassium Level 4.2 mmol/L (3.5-5.1) Chloride Level 104 mmol/L (98-107) Carbon Dioxide Level 24 mmol/L (21-32) Anion Gap 11 (6-14) Blood Urea Nitrogen 27 mg/dL (8-26) Creatinine 1.7 mg/dL (0.7-1.3) Estimated GFR (Cockcroft-Gault) 41.9 Glucose Level 111 mg/dL (70-99) Calcium Level 9.0 mg/dL (8.5-10.1) Microbiology 02/06/18 Blood Culture - Preliminary, Resulted NO GROWTH AFTER 3 DAYS Medications Current Medications Labetalol HCl (Normodyne Iv Push) 20 mg 1X ONCE IVP Last administered on 02/03at 12:26; Start 02/03/18 at 12:15; Stop 02/03/18 at 12:16; Status DC Nicardipine HCl 50 mg/Sodium Chloride 270 ml @ 27 mls/hr CONT PRN IV SEE I/O RECORD Last administered on 02/04/18at 22:26; Start 02/03/18 at 12:30; Stop at 12:13; Status DC Ondansetron HCl (Zofran) 4 mg PRN Q8HRS PRN IV NAUSEA/VOMITING; Start at 13:15; Stop 02/04/18 at 13:14; Status DC Fentanyl Citrate (Fentanyl 2ml Vial) 50 mcg PRN Q1HR PRN IV PAIN; Start at 13:15; Stop 02/04/18 at 13:14; Status DC Metoprolol Succinate (Toprol Xl) 25 mg DAILY PO Last administered on at 08:45; Start 02/03/18 at 22:30; Stop 02/06/18 at 12:07; Status DC Simvastatin (Zocor) 20 mg HS PO Last administered on 02/09/18at 21:48; Start 02/04/18 at 21:00 Labetalol HCl (Normodyne Iv Push) 20 mg PRN Q2HR PRN IVP HYPERTENSION, SEE COMMENTS Last administered on 02/08/18at 23:23; Start 02/04/18 at 13:15 Labetalol HCl (Normodyne Iv Push) 20 mg PRN Q2HR PRN IVP HYPERTENSION, SEE COMMENTS; Start 02/04/18 at 13:45; Stop 02/04/18 at 13:46; Status DC Amlodipine Besylate (Norvasc) 5 mg DAILY PO Last administered on 02/06/18at 08: 45; Start 02/04/18 at 18:00; Stop 02/06/18 at 12:07; Status DC Ceftriaxone Sodium (Rocephin) 1 gm Q24H IVP Last administered on 02/09/18at 13: 11; Start 02/06/18 at 12:30 Amlodipine Besylate (Norvasc) 10 mg DAILY PO Last administered on 02/10/18at 08 :46; Start 02/07/18 at 09:00 Carvedilol (Coreg) 6.25 mg BIDWMEALS PO Last administered on 02/10/18at 08:09; Start 02/06/18 at 12:30 Amlodipine Besylate (Norvasc) 5 mg 1X ONCE PO Last administered on 02/06/18at 12:30; Start 02/06/18 at 12:30; Stop 02/06/18 at 12:31; Status DC Levothyroxine Sodium (Synthroid) 125 mcg DAILY06 PO Last administered on at 06:35; Start 02/06/18 at 12:30 Lisinopril (Prinivil) 5 mg BID PO Last administered on 02/09/18at 08:13; Start 02/06/18 at 14:30; Stop 02/09/18 at 11:06; Status DC Acetaminophen (Tylenol) 650 mg PRN Q6HRS PRN PO MILD PAIN / TEMP Last administered on 02/08/18at 16:21; Start 02/06/18 at 19:30 Lactobacillus Rhamnosus (Culturelle) 1 cap BID PO Last administered on at 08:45; Start 02/07/18 at 21:00 Lisinopril (Prinivil) 10 mg BID PO Last administered on 02/10/18at 08:46; Start 02/09/18 at 21:00 Clonidine HCl (Catapres) 0.1 mg Q8HRS PO Last administered on 02/10/18at 06:36 ; Start 02/09/18 at 14:00; Stop 02/10/18 at 10:25; Status DC Clonidine HCl (Catapres) 0.2 mg Q8HRS PO ; Start 02/10/18 at 14:00 Vitals/I & O Vital Sign - Last 24 Hours 02/09/18 02/09/18 02/09/18 02/09/18 13:12 15:22 16:20 19:00 Temp 97.6 98.6 97.6 98.6 Pulse 65 65 65 67 Resp 18 18 B/P (MAP) 139/84 142/82 (102) 142/82 162/77 (105) Pulse Ox 97 96 O2 Delivery Room Air Room Air 02/09/18 02/09/18 02/09/18 02/09/18 19:55 21:50 21:51 23:00 Temp 98.1 98.1 Pulse 61 61 58 Resp 20 B/P (MAP) 131/75 131/75 119/63 (81) Pulse Ox 97 O2 Delivery Room Air Room Air 02/10/18 02/10/18 02/10/18 02/10/18 02:53 06:36 07:30 07:35 Temp 98.6 97.2 98.6 97.2 Pulse 68 68 112 Resp 16 18 B/P (MAP) 128/86 (100) 128/86 149/90 (109) Pulse Ox 98 O2 Delivery Room Air Room Air Room Air 02/10/18 02/10/18 02/10/18 02/10/18 08:09 08:46 08:46 11:20 Temp 98.5 98.5 Pulse 112 112 112 86 Resp 16 B/P (MAP) 149/90 149/90 149/90 122/74 (90) O2 Delivery Room Air Intake and Output 02/09/18 02/09/18 02/10/18 15:01 23:01 07:01 Intake Total 120 ml Balance 120 ml MONTSE ARIAS MD Feb 10, 2018 12:26
--- NOTE | 2018-02-10 12:55 | RESP ---
DATE OF SERVICE: 02/06/2018 ATTENDING PHYSICIAN: Ozzy Helm MD The patient underwent nocturnal desaturation study on room air. He had significant periods of oxyhemoglobin desaturation below 88%. RECOMMENDATION: 1. Oxygen supplementation 2 liters per nasal cannula at bedtime. 2. Polysomnogram. KELLIE MIRANDA MD DR: AMOR/nts JOB#: [id number] / [id number]
[2018-02-10 15:15] VITALS: BP 133/78
[2018-02-10] MEDS: CEFDINIR 300 MG CAPSULE PO SCH (16:34)
[2018-02-10 19:00] VITALS: BP 143/78
[2018-02-10] MEDS: SIMVASTATIN 20 MG TABLET PO SCH (21:06)
[2018-02-10 22:58] VITALS: BP 120/67
[2018-02-11 03:00] VITALS: BP 133/79
[2018-02-11] MEDS: cloNIDine HCL 0.1 MG TABLET PO SCH ×3 (06:29→21:01)
[2018-02-11] MEDS: LEVOTHYROXINE 125 MCG TABLET PO SCH (06:29)
[2018-02-11 06:54] LABS: CALCIUM 9.1 mg/dL (8.5-10.1); GFR 34.7; POTASSIUM 4.2 mmol/L (3.5-5.1)
[2018-02-11 07:00] VITALS: BP 114/63
[2018-02-11] MEDS: CARVEDILOL 6.25 MG TABLET. PO SCH ×2 (08:00→17:03)
[2018-02-11] MEDS: CEFDINIR 300 MG CAPSULE PO SCH ×2 (08:20→17:02)
[2018-02-11] MEDS: LISINOPRIL 5 MG TABLET. PO SCH (09:00)
[2018-02-11] MEDS: amLODIPine BESYLATE 10 MG TABLET PO SCH (09:00)
--- NOTE | 2018-02-11 09:32 | PDOC ---
PULMONARY PROGRESS NOTES Subjective PT NOT MORE SOA OFF 02 Vitals Vital Signs Date Time Temp Pulse Resp B/P (MAP) Pulse Ox O2 Delivery O2 Flow Rate FiO2 02/11/18 08:00 57 114/63 02/11/18 07:00 98.1 16 100 Nasal Cannula 2.0 98.1 Lungs: Clear Cardiovascular: S1 Abdomen: Soft Neuro Exam: Alert Extremities: No Edema Skin: Warm Labs Laboratory Tests Test 02/10/18 03:15 02/11/18 05:20 White Blood Count 10.2 x10^3/uL (4.0-11.0) Red Blood Count 4.16 x10^6/uL (4.30-5.70) Hemoglobin 12.8 g/dL (13.0-17.5) Hematocrit 36.8 % (39.0-53.0) Mean Corpuscular Volume 88 fL (79-100) Mean Corpuscular Hemoglobin 31 pg (25-35) Mean Corpuscular Hemoglobin Concent 35 g/dL (31-37) Red Cell Distribution Width 14.4 % (11.5-14.5) Platelet Count 257 x10^3/uL (140-400) Neutrophils (%) (Auto) 65 % (31-73) Lymphocytes (%) (Auto) 19 % (24-48) Monocytes (%) (Auto) 12 % (0-9) Eosinophils (%) (Auto) 4 % (0-3) Basophils (%) (Auto) 1 % (0-3) Neutrophils # (Auto) 6.7 x10^3uL (1.8-7.7) Lymphocytes # (Auto) 1.9 x10^3/uL (1.0-4.8) Monocytes # (Auto) 1.2 x10^3/uL (0.0-1.1) Eosinophils # (Auto) 0.4 x10^3/uL (0.0-0.7) Basophils # (Auto) 0.1 x10^3/uL (0.0-0.2) Sodium Level 139 mmol/L (136-145) 140 mmol/L (136-145) Potassium Level 4.2 mmol/L (3.5-5.1) 4.2 mmol/L (3.5-5.1) Chloride Level 104 mmol/L (98-107) 105 mmol/L (98-107) Carbon Dioxide Level 24 mmol/L (21-32) 23 mmol/L (21-32) Anion Gap 11 (6-14) 12 (6-14) Blood Urea Nitrogen 27 mg/dL (8-26) 35 mg/dL (8-26) Creatinine 1.7 mg/dL (0.7-1.3) 2.0 mg/dL (0.7-1.3) Estimated GFR (Cockcroft-Gault) 41.9 34.7 Glucose Level 111 mg/dL (70-99) 105 mg/dL (70-99) Calcium Level 9.0 mg/dL (8.5-10.1) 9.1 mg/dL (8.5-10.1) Laboratory Tests Test 02/11/18 05:20 Sodium Level 140 mmol/L (136-145) Potassium Level 4.2 mmol/L (3.5-5.1) Chloride Level 105 mmol/L (98-107) Carbon Dioxide Level 23 mmol/L (21-32) Anion Gap 12 (6-14) Blood Urea Nitrogen 35 mg/dL (8-26) Creatinine 2.0 mg/dL (0.7-1.3) Estimated GFR (Cockcroft-Gault) 34.7 Glucose Level 105 mg/dL (70-99) Calcium Level 9.1 mg/dL (8.5-10.1) Impression . IMPRESSION: 1. Acute hypoxemic respiratory failure. 2. Right basal ganglia intraparenchymal hemorrhage. 3. Malignant hypertension. 4. Acute kidney injury. 5. Hyperlipidemia. 6. Hypothyroidism. 7. Clinical presentation compatible with obstructive sleep apnea. Plan . NOC DESAT FOLLOW NEURO INPUT RESP STATUS IS COMPENSATED WILL NEED A SLEEP STUDY OUT PT KELLIE MIRANDA MD Feb 11, 2018 09:32
[2018-02-11] MEDS: LACTOBACILLUS RHAMNOSUS GG 1 CAPSULE. PO SCH ×2 (09:50→21:00)
--- NOTE | 2018-02-11 10:03 | PDOC ---
PROGRESS NOTES Assessment Problems Medical Problems: (1) Hypertensive emergency Status: Acute (2) Intraparenchymal hemorrhage of brain Status: Acute Right basal ganglia hypertensive intracranial hemorrhage Plan Still working on placement issues, inpatient rehabilitation would be the best Zocor 20 mg HS. Avoid antiplatelet and anticoagulant agents at the present time. BP control. Subjective No complaints, now willing to go to inpatient rehab if it is less expensive for him Objective Vital Signs Date Time Temp Pulse Resp B/P (MAP) Pulse Ox O2 Delivery O2 Flow Rate FiO2 02/11/18 09:00 57 114/63 02/11/18 07:00 98.1 16 100 Nasal Cannula 2.0 98.1 Intake and Output 02/11/18 07:01 Intake Total 685 ml Balance 685 ml Intake Oral 685 ml # Voids 1 PHYSICAL EXAM Alert. Oriented to time, place and person. PERRL. EOMI. CN: no focal findings. Muscle tone: normal. Muscle strength: 4/5 left hemiparesis DTR: 1+ Plantar reflex: flexor Gait: Actually does fairly well, consistent with left hemiparesis Sensory exam: no abnormal findings. No cerebellar signs elicited. Review of Relevant I have reviewed the following items wayne (where applicable) has been applied. Labs Laboratory Tests Test 02/10/18 03:15 02/11/18 05:20 White Blood Count 10.2 x10^3/uL (4.0-11.0) Red Blood Count 4.16 x10^6/uL (4.30-5.70) Hemoglobin 12.8 g/dL (13.0-17.5) Hematocrit 36.8 % (39.0-53.0) Mean Corpuscular Volume 88 fL (79-100) Mean Corpuscular Hemoglobin 31 pg (25-35) Mean Corpuscular Hemoglobin Concent 35 g/dL (31-37) Red Cell Distribution Width 14.4 % (11.5-14.5) Platelet Count 257 x10^3/uL (140-400) Neutrophils (%) (Auto) 65 % (31-73) Lymphocytes (%) (Auto) 19 % (24-48) Monocytes (%) (Auto) 12 % (0-9) Eosinophils (%) (Auto) 4 % (0-3) Basophils (%) (Auto) 1 % (0-3) Neutrophils # (Auto) 6.7 x10^3uL (1.8-7.7) Lymphocytes # (Auto) 1.9 x10^3/uL (1.0-4.8) Monocytes # (Auto) 1.2 x10^3/uL (0.0-1.1) Eosinophils # (Auto) 0.4 x10^3/uL (0.0-0.7) Basophils # (Auto) 0.1 x10^3/uL (0.0-0.2) Sodium Level 139 mmol/L (136-145) 140 mmol/L (136-145) Potassium Level 4.2 mmol/L (3.5-5.1) 4.2 mmol/L (3.5-5.1) Chloride Level 104 mmol/L (98-107) 105 mmol/L (98-107) Carbon Dioxide Level 24 mmol/L (21-32) 23 mmol/L (21-32) Anion Gap 11 (6-14) 12 (6-14) Blood Urea Nitrogen 27 mg/dL (8-26) 35 mg/dL (8-26) Creatinine 1.7 mg/dL (0.7-1.3) 2.0 mg/dL (0.7-1.3) Estimated GFR (Cockcroft-Gault) 41.9 34.7 Glucose Level 111 mg/dL (70-99) 105 mg/dL (70-99) Calcium Level 9.0 mg/dL (8.5-10.1) 9.1 mg/dL (8.5-10.1) Laboratory Tests Test 02/11/18 05:20 Sodium Level 140 mmol/L (136-145) Potassium Level 4.2 mmol/L (3.5-5.1) Chloride Level 105 mmol/L (98-107) Carbon Dioxide Level 23 mmol/L (21-32) Anion Gap 12 (6-14) Blood Urea Nitrogen 35 mg/dL (8-26) Creatinine 2.0 mg/dL (0.7-1.3) Estimated GFR (Cockcroft-Gault) 34.7 Glucose Level 105 mg/dL (70-99) Calcium Level 9.1 mg/dL (8.5-10.1) Microbiology 02/06/18 Blood Culture - Preliminary, Resulted NO GROWTH AFTER 4 DAYS Medications Current Medications Labetalol HCl (Normodyne Iv Push) 20 mg 1X ONCE IVP Last administered on 02/03at 12:26; Start 02/03/18 at 12:15; Stop 02/03/18 at 12:16; Status DC Nicardipine HCl 50 mg/Sodium Chloride 270 ml @ 27 mls/hr CONT PRN IV SEE I/O RECORD Last administered on 02/04/18at 22:26; Start 02/03/18 at 12:30; Stop at 12:13; Status DC Ondansetron HCl (Zofran) 4 mg PRN Q8HRS PRN IV NAUSEA/VOMITING; Start at 13:15; Stop 02/04/18 at 13:14; Status DC Fentanyl Citrate (Fentanyl 2ml Vial) 50 mcg PRN Q1HR PRN IV PAIN; Start at 13:15; Stop 02/04/18 at 13:14; Status DC Metoprolol Succinate (Toprol Xl) 25 mg DAILY PO Last administered on at 08:45; Start 02/03/18 at 22:30; Stop 02/06/18 at 12:07; Status DC Simvastatin (Zocor) 20 mg HS PO Last administered on 02/10/18at 21:06; Start 02/04/18 at 21:00 Labetalol HCl (Normodyne Iv Push) 20 mg PRN Q2HR PRN IVP HYPERTENSION, SEE COMMENTS Last administered on 02/08/18at 23:23; Start 02/04/18 at 13:15 Labetalol HCl (Normodyne Iv Push) 20 mg PRN Q2HR PRN IVP HYPERTENSION, SEE COMMENTS; Start 02/04/18 at 13:45; Stop 02/04/18 at 13:46; Status DC Amlodipine Besylate (Norvasc) 5 mg DAILY PO Last administered on 02/06/18at 08: 45; Start 02/04/18 at 18:00; Stop 02/06/18 at 12:07; Status DC Ceftriaxone Sodium (Rocephin) 1 gm Q24H IVP Last administered on 02/10/18at 12: 20; Start 02/06/18 at 12:30; Stop 02/10/18 at 13:19; Status DC Amlodipine Besylate (Norvasc) 10 mg DAILY PO Last administered on 02/10/18 08 :46; Start 02/07/18 at 09:00 Carvedilol (Coreg) 6.25 mg BIDWMEALS PO Last administered on 02/10/18 16:29; Start 02/06/18 at 12:30 Amlodipine Besylate (Norvasc) 5 mg 1X ONCE PO Last administered on 02/06/18 12:30; Start 02/06/18 at 12:30; Stop 02/06/18 at 12:31; Status DC Levothyroxine Sodium (Synthroid) 125 mcg DAILY06 PO Last administered on 06:29; Start 02/06/18 at 12:30 Lisinopril (Prinivil) 5 mg BID PO Last administered on 02/09/18at 08:13; Start 02/06/18 at 14:30; Stop 02/09/18 at 11:06; Status DC Acetaminophen (Tylenol) 650 mg PRN Q6HRS PRN PO MILD PAIN / TEMP Last administered on 02/08/18at 16:21; Start 02/06/18 at 19:30 Lactobacillus Rhamnosus (Culturelle) 1 cap BID PO Last administered on at 09:50; Start 02/07/18 at 21:00 Lisinopril (Prinivil) 10 mg BID PO Last administered on 02/10/18at 21:06; Start 02/09/18 at 21:00 Clonidine HCl (Catapres) 0.1 mg Q8HRS PO Last administered on 02/10/18at 06:36 ; Start 02/09/18 at 14:00; Stop 02/10/18 at 10:25; Status DC Clonidine HCl (Catapres) 0.2 mg Q8HRS PO Last administered on 02/11/18at 06:29 ; Start 02/10/18 at 14:00 Cefdinir (Omnicef) 300 mg BIDWMEALS PO Last administered on 02/11/18 08:20; Start 02/10/18 at 17:00 Vitals/I & O Vital Sign - Last 24 Hours 02/10/18 02/10/18 02/10/18 02/10/18 11:20 13:56 15:15 16:29 Temp 98.5 97.8 98.5 97.8 Pulse 86 70 91 91 Resp 16 16 B/P (MAP) 122/74 (90) 97/63 133/78 (96) 133/78 O2 Delivery Room Air Room Air 02/10/18 02/10/18 02/10/18 02/10/18 19:00 20:00 21:06 22:58 Temp 98.1 97.8 98.1 97.8 Pulse 63 63 63 Resp 16 20 B/P (MAP) 143/78 (99) 143/78 120/67 (84) Pulse Ox 97 96 O2 Delivery Room Air Room Air Room Air 02/10/18 02/11/18 02/11/18 02/11/18 23:11 03:00 06:29 07:00 Temp 98.0 98.1 98.0 98.1 Pulse 63 65 65 57 Resp 20 16 B/P (MAP) 120/67 133/79 (97) 133/79 114/63 (80) Pulse Ox 98 100 O2 Delivery Nasal Cannula Nasal Cannula O2 Flow Rate 2.0 2.0 02/11/18 02/11/18 02/11/18 08:00 09:00 09:00 Pulse 57 57 57 B/P (MAP) 114/63 114/63 114/63 Intake and Output 02/10/18 02/10/18 02/11/18 15:01 23:01 07:01 Intake Total 325 ml 120 ml 240 ml Balance 325 ml 120 ml 240 ml LYNDON BARRETO MD Feb 11, 2018 10:03
[2018-02-11] MEDS: IV NORMAL SALINE 1000ML BAG 1,000 ML IV SCH ×2 (10:59→21:01)
[2018-02-11 11:00] VITALS: BP 129/76
--- NOTE | 2018-02-11 11:03 | PDOC ---
SUBJECTIVE ROS Pt states he doesn't know what is going on with his Kidneys As per RN it has been explained to the patient . he denies any complaints currently He has Not seen a provider for >15 yrs prior to this Hospitalization , his BP used to be elevated at the time He has not been on any meds, Takes OTC Motrin 2-6 /day as needed OBJECTIVE Vital Signs Vital Signs Date Time Temp Pulse Resp B/P (MAP) Pulse Ox O2 Delivery O2 Flow Rate FiO2 02/11/18 09:00 57 114/63 02/11/18 07:00 98.1 16 100 Nasal Cannula 2.0 98.1 I & 0 Intake and Output 02/11/18 07:01 Intake Total 685 ml Balance 685 ml Intake Oral 685 ml # Voids 1 PHYSICAL EXAM Physical Exam General: Alert, Oriented X3, No acute distress Heart: Regular rate, Normal S1, Normal S2 Lungs: Clear Abdomen: Normal bowel sounds, Obese Extremities: No edema Skin: Rash No stephens DIAGNOSIS/ASSESSMENT Assessment & Plan ? YOVANA vs CKD - Creat 2 this am BP dropped to 90's from 200+ systolic on admission Titrate BP meds to avoid Hypotension CKD stage 3- sec to HTN nephrosclerosis, Use of NSAID + No e/o GN based on UA Renal US normal ,Lytes and acid abse stable HTN - Admitted with very high BP BP dropped in 90's Hold Lisinopril Discussed at Great length with Pt and Family(ex- as per RN) Discussed with RN COMMENT/RELEVANT DATA Meds Current Medications Medications (Trade) Dose Ordered Sig/Teresa Start Time Stop Time Status Last Admin Dose Admin Acetaminophen (Tylenol) 650 mg PRN Q6HRS PRN 02/06/18 19:30 02/08/18 16:21 650 MG Amlodipine Besylate (Norvasc) 5 mg 1X ONCE 02/06/18 12:30 02/06/18 12:31 DC 02/06/18 12:30 5 MG Carvedilol (Coreg) 6.25 mg BIDWMEALS 02/06/18 12:30 02/10/18 16:29 6.25 MG Cefdinir (Omnicef) 300 mg BIDWMEALS 02/10/18 17:00 02/11/18 08:20 300 MG Ceftriaxone Sodium (Rocephin) 1 gm Q24H 02/06/18 12:30 02/10/18 13:19 DC 02/10/18 12:20 1 GM Clonidine HCl (Catapres) 0.2 mg Q8HRS 02/10/18 14:00 02/11/18 06:29 0.2 MG Fentanyl Citrate (Fentanyl 2ml Vial) 50 mcg PRN Q1HR PRN 02/03/18 13:15 02/04/18 13:14 DC Labetalol HCl (Normodyne Iv Push) 20 mg PRN Q2HR PRN 02/04/18 13:45 02/04/18 13:46 DC Lactobacillus Rhamnosus (Culturelle) 1 cap BID 02/07/18 21:00 02/11/18 09:50 1 CAP Levothyroxine Sodium (Synthroid) 125 mcg DAILY06 02/06/18 12:30 02/11/18 06:29 125 MCG Lisinopril (Prinivil) 10 mg BID 02/09/18 21:00 02/10/18 21:06 10 MG Metoprolol Succinate (Toprol Xl) 25 mg DAILY 02/03/18 22:30 02/06/18 12:07 DC 02/06/18 08:45 25 MG Nicardipine HCl 50 mg/Sodium Chloride 270 ml @ 27 mls/hr CONT PRN 02/03/18 12:30 02/06/18 12:13 DC 02/04/18 22:26 27 MLS/HR Ondansetron HCl (Zofran) 4 mg PRN Q8HRS PRN 02/03/18 13:15 02/04/18 13:14 DC Simvastatin (Zocor) 20 mg HS 02/04/18 21:00 02/10/18 21:06 20 MG Sodium Chloride 1,000 ml @ 75 mls/hr [id number] 02/11/18 11:00 Lab Laboratory Tests Test 02/11/18 05:20 Sodium Level 140 mmol/L (136-145) Potassium Level 4.2 mmol/L (3.5-5.1) Chloride Level 105 mmol/L (98-107) Carbon Dioxide Level 23 mmol/L (21-32) Anion Gap 12 (6-14) Blood Urea Nitrogen 35 mg/dL (8-26) Creatinine 2.0 mg/dL (0.7-1.3) Estimated GFR (Cockcroft-Gault) 34.7 Glucose Level 105 mg/dL (70-99) Calcium Level 9.1 mg/dL (8.5-10.1) Results All relevant outside records, renal labs, imaging studies, telemetry/EKG's were reviewed. ROGELIO ECHEVERRIA MD Feb 11, 2018 11:03
--- NOTE | 2018-02-11 11:50 | PDOC ---
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 seen and examined bedside Talked with nursing Vitals Vitals Vital Signs Date Time Temp Pulse Resp B/P (MAP) Pulse Ox O2 Delivery O2 Flow Rate FiO2 02/11/18 09:00 57 114/63 02/11/18 08:00 Room Air 02/11/18 07:00 98.1 16 100 2.0 98.1 Physical Exam General: Alert, Oriented X3, Cooperative, No acute distress Heart: Regular rate, Normal S1, Normal S2 Lungs: Clear Abdomen: Normal bowel sounds, Soft, No tenderness Extremities: No clubbing, No cyanosis Skin: No breakdown Labs LABS Laboratory Tests Test 02/11/18 05:20 Sodium Level 140 mmol/L (136-145) Potassium Level 4.2 mmol/L (3.5-5.1) Chloride Level 105 mmol/L (98-107) Carbon Dioxide Level 23 mmol/L (21-32) Anion Gap 12 (6-14) Blood Urea Nitrogen 35 mg/dL (8-26) Creatinine 2.0 mg/dL (0.7-1.3) Estimated GFR (Cockcroft-Gault) 34.7 Glucose Level 105 mg/dL (70-99) Calcium Level 9.1 mg/dL (8.5-10.1) Review of Systems Review of Systems denies chest pain denies shortness of breath Assessment and Plan Assessmemt and Plan Intraparenchymal hemorrhage of the right basal ganglia with mild associated edema Hypertensive crisis Headache, secondary to above morbid obesity possible JOSE, secondary to above Hypothyroidism, TSH 15.636 Plan IV fluids Labs PT/OT Home meds D/C dispo: tomorrow if clinical course continues Comment Review of Relevant I have reviewed the following items wayne (where applicable) has been applied. Labs Laboratory Tests Test 02/10/18 03:15 02/11/18 05:20 White Blood Count 10.2 x10^3/uL (4.0-11.0) Red Blood Count 4.16 x10^6/uL (4.30-5.70) Hemoglobin 12.8 g/dL (13.0-17.5) Hematocrit 36.8 % (39.0-53.0) Mean Corpuscular Volume 88 fL (79-100) Mean Corpuscular Hemoglobin 31 pg (25-35) Mean Corpuscular Hemoglobin Concent 35 g/dL (31-37) Red Cell Distribution Width 14.4 % (11.5-14.5) Platelet Count 257 x10^3/uL (140-400) Neutrophils (%) (Auto) 65 % (31-73) Lymphocytes (%) (Auto) 19 % (24-48) Monocytes (%) (Auto) 12 % (0-9) Eosinophils (%) (Auto) 4 % (0-3) Basophils (%) (Auto) 1 % (0-3) Neutrophils # (Auto) 6.7 x10^3uL (1.8-7.7) Lymphocytes # (Auto) 1.9 x10^3/uL (1.0-4.8) Monocytes # (Auto) 1.2 x10^3/uL (0.0-1.1) Eosinophils # (Auto) 0.4 x10^3/uL (0.0-0.7) Basophils # (Auto) 0.1 x10^3/uL (0.0-0.2) Sodium Level 139 mmol/L (136-145) 140 mmol/L (136-145) Potassium Level 4.2 mmol/L (3.5-5.1) 4.2 mmol/L (3.5-5.1) Chloride Level 104 mmol/L (98-107) 105 mmol/L (98-107) Carbon Dioxide Level 24 mmol/L (21-32) 23 mmol/L (21-32) Anion Gap 11 (6-14) 12 (6-14) Blood Urea Nitrogen 27 mg/dL (8-26) 35 mg/dL (8-26) Creatinine 1.7 mg/dL (0.7-1.3) 2.0 mg/dL (0.7-1.3) Estimated GFR (Cockcroft-Gault) 41.9 34.7 Glucose Level 111 mg/dL (70-99) 105 mg/dL (70-99) Calcium Level 9.0 mg/dL (8.5-10.1) 9.1 mg/dL (8.5-10.1) Laboratory Tests Test 02/11/18 05:20 Sodium Level 140 mmol/L (136-145) Potassium Level 4.2 mmol/L (3.5-5.1) Chloride Level 105 mmol/L (98-107) Carbon Dioxide Level 23 mmol/L (21-32) Anion Gap 12 (6-14) Blood Urea Nitrogen 35 mg/dL (8-26) Creatinine 2.0 mg/dL (0.7-1.3) Estimated GFR (Cockcroft-Gault) 34.7 Glucose Level 105 mg/dL (70-99) Calcium Level 9.1 mg/dL (8.5-10.1) Microbiology 02/06/18 Blood Culture - Preliminary, Resulted NO GROWTH AFTER 4 DAYS Medications Current Medications Labetalol HCl (Normodyne Iv Push) 20 mg 1X ONCE IVP Last administered on 02/03at 12:26; Start 02/03/18 at 12:15; Stop 02/03/18 at 12:16; Status DC Nicardipine HCl 50 mg/Sodium Chloride 270 ml @ 27 mls/hr CONT PRN IV SEE I/O RECORD Last administered on 02/04/18at 22:26; Start 02/03/18 at 12:30; Stop at 12:13; Status DC Ondansetron HCl (Zofran) 4 mg PRN Q8HRS PRN IV NAUSEA/VOMITING; Start at 13:15; Stop 02/04/18 at 13:14; Status DC Fentanyl Citrate (Fentanyl 2ml Vial) 50 mcg PRN Q1HR PRN IV PAIN; Start at 13:15; Stop 02/04/18 at 13:14; Status DC Metoprolol Succinate (Toprol Xl) 25 mg DAILY PO Last administered on at 08:45; Start 02/03/18 at 22:30; Stop 02/06/18 at 12:07; Status DC Simvastatin (Zocor) 20 mg HS PO Last administered on 02/10/18at 21:06; Start 02/04/18 at 21:00 Labetalol HCl (Normodyne Iv Push) 20 mg PRN Q2HR PRN IVP HYPERTENSION, SEE COMMENTS Last administered on 02/08/18at 23:23; Start 02/04/18 at 13:15 Labetalol HCl (Normodyne Iv Push) 20 mg PRN Q2HR PRN IVP HYPERTENSION, SEE COMMENTS; Start 02/04/18 at 13:45; Stop 02/04/18 at 13:46; Status DC Amlodipine Besylate (Norvasc) 5 mg DAILY PO Last administered on 02/06/18at 08: 45; Start 02/04/18 at 18:00; Stop 02/06/18 at 12:07; Status DC Ceftriaxone Sodium (Rocephin) 1 gm Q24H IVP Last administered on 02/10/18at 12: 20; Start 02/06/18 at 12:30; Stop 02/10/18 at 13:19; Status DC Amlodipine Besylate (Norvasc) 10 mg DAILY PO Last administered on 02/10/18at 08 :46; Start 02/07/18 at 09:00 Carvedilol (Coreg) 6.25 mg BIDWMEALS PO Last administered on 02/10/18at 16:29; Start 02/06/18 at 12:30 Amlodipine Besylate (Norvasc) 5 mg 1X ONCE PO Last administered on 02/06/18at 12:30; Start 02/06/18 at 12:30; Stop 02/06/18 at 12:31; Status DC Levothyroxine Sodium (Synthroid) 125 mcg DAILY06 PO Last administered on at 06:29; Start 02/06/18 at 12:30 Lisinopril (Prinivil) 5 mg BID PO Last administered on 02/09/18at 08:13; Start 02/06/18 at 14:30; Stop 02/09/18 at 11:06; Status DC Acetaminophen (Tylenol) 650 mg PRN Q6HRS PRN PO MILD PAIN / TEMP Last administered on 02/08/18at 16:21; Start 02/06/18 at 19:30 Lactobacillus Rhamnosus (Culturelle) 1 cap BID PO Last administered on at 09:50; Start 02/07/18 at 21:00 Lisinopril (Prinivil) 10 mg BID PO Last administered on 02/10/18at 21:06; Start 02/09/18 at 21:00 Clonidine HCl (Catapres) 0.1 mg Q8HRS PO Last administered on 02/10/18at 06:36 ; Start 02/09/18 at 14:00; Stop 02/10/18 at 10:25; Status DC Clonidine HCl (Catapres) 0.2 mg Q8HRS PO Last administered on 02/11/18at 06:29 ; Start 02/10/18 at 14:00 Cefdinir (Omnicef) 300 mg BIDWMEALS PO Last administered on 02/11/18at 08:20; Start 02/10/18 at 17:00 Sodium Chloride 1,000 ml @ 75 mls/hr [id number] IV Last administered on at 10:59; Start 02/11/18 at 11:00 Vitals/I & O Vital Sign - Last 24 Hours 02/10/18 02/10/18 02/10/18 02/10/18 13:56 15:15 16:29 19:00 Temp 97.8 98.1 97.8 98.1 Pulse 70 91 91 63 Resp 16 16 B/P (MAP) 97/63 133/78 (96) 133/78 143/78 (99) Pulse Ox 97 O2 Delivery Room Air Room Air 02/10/18 02/10/18 02/10/18 02/10/18 20:00 21:06 22:58 23:11 Temp 97.8 97.8 Pulse 63 63 63 Resp 20 B/P (MAP) 143/78 120/67 (84) 120/67 Pulse Ox 96 O2 Delivery Room Air Room Air 02/11/18 02/11/18 02/11/18 02/11/18 03:00 06:29 07:00 08:00 Temp 98.0 98.1 98.0 98.1 Pulse 65 65 57 57 Resp 20 16 B/P (MAP) 133/79 (97) 133/79 114/63 (80) 114/63 Pulse Ox 98 100 O2 Delivery Nasal Cannula Nasal Cannula O2 Flow Rate 2.0 2.0 02/11/18 02/11/18 02/11/18 08:00 09:00 09:00 Pulse 57 57 B/P (MAP) 114/63 114/63 O2 Delivery Room Air Intake and Output 02/10/18 02/10/18 02/11/18 15:01 23:01 07:01 Intake Total 325 ml 120 ml 240 ml Balance 325 ml 120 ml 240 ml CASTLE,NIAL K III DO Feb 11, 2018 11:50
[2018-02-11 15:00] VITALS: BP 138/78
[2018-02-11 18:41] VITALS: BP 150/82
[2018-02-11] MEDS: SIMVASTATIN 20 MG TABLET PO SCH (21:00)
[2018-02-11 23:00] VITALS: BP 150/80
[2018-02-12 03:00] VITALS: BP 117/72
[2018-02-12] MEDS: cloNIDine HCL 0.1 MG TABLET PO SCH ×2 (05:48→14:42)
[2018-02-12] MEDS: LEVOTHYROXINE 125 MCG TABLET PO SCH (05:48)
[2018-02-12 07:00] VITALS: BP 103/56
[2018-02-12 08:01] LABS: BASO # 0.1 x10^3/uL (0.0-0.2); BASO % 1 % (0-3); EOS # 0.4 x10^3/uL (0.0-0.7); EOS % 4 % (0-3); HEMATOCRIT 35.8 % (39.0-53.0); HEMOGLOBIN 12.4 g/dL (13.0-17.5); LYMPH # 1.7 x10^3/uL (1.0-4.8); LYMPH % 18 % (24-48); MEAN CORPUSCULAR HEMOGLOBIN 31 pg (25-35); MEAN CORPUSCULAR HGB CONC 35 g/dL (31-37); MEAN CORPUSCULAR VOLUME 89 fL (79-100); MONO # 1.1 x10^3/uL (0.0-1.1); MONO % 12 % (0-9); NEUT # 6.1 x10^3uL (1.8-7.7); NEUT % 65 % (31-73); PLATELET COUNT 249 x10^3/uL (140-400); RED CELL DISTRIBUTION WIDTH 14.2 % (11.5-14.5); WHITE BLOOD COUNT 9.4 x10^3/uL (4.0-11.0)
[2018-02-12 08:20] LABS: CALCIUM 8.8 mg/dL (8.5-10.1); CREATININE 1.6 mg/dL (0.7-1.3); GFR 44.9; POTASSIUM 4.6 mmol/L (3.5-5.1)
[2018-02-12] MEDS: LACTOBACILLUS RHAMNOSUS GG 1 CAPSULE. PO SCH (08:43)
[2018-02-12] MEDS: amLODIPine BESYLATE 10 MG TABLET PO SCH (08:43)
[2018-02-12] MEDS: CEFDINIR 300 MG CAPSULE PO SCH ×2 (08:43→17:04)
[2018-02-12] MEDS: CARVEDILOL 6.25 MG TABLET. PO SCH ×2 (08:44→17:04)
--- NOTE | 2018-02-12 08:44 | RAD ---
CT HEAD WO CONTRAST Indication: Intracranial hemorrhage. Exposure: One or more of the following individualized dose reduction techniques were utilized for this examination: 1. Automated exposure control 2. Adjustment of the mA and/or kV according to patient size 3. Use of iterative reconstruction technique. Comparison: February 04, 2018. Contrast: None FINDINGS: The intracranial hemorrhage in the region of the right basal ganglia is slightly less dense at its periphery and more ill-defined on today's study. No interval increase in size. Surrounding hypodensity or edema is again identified. Mild effacement of the right lateral ventricle compatible with mass effect appears overall similar. No new areas of intracranial hemorrhage or abnormal extra-axial fluid are identified. The paranasal sinuses appear clear. No acute skull abnormality. Orbits unremarkable. IMPRESSION: Hemorrhagic region in the area of the right basal ganglia, compatible with hematoma or hemorrhagic mass, is again identified, appears slightly less dense around its periphery, and less well-defined. Mild mass effect upon the right lateral ventricle appears similar. Electronically signed by: Juan Couch MD (02/12/2018 8:40 AM) [id number]
--- NOTE | 2018-02-12 09:14 | PDOC ---
PULMONARY PROGRESS NOTES Subjective PT NOT MORE SOA OFF 02 Vitals Vital Signs Date Time Temp Pulse Resp B/P (MAP) Pulse Ox O2 Delivery O2 Flow Rate FiO2 02/12/18 08:44 60 121/77 02/12/18 03:00 97.8 18 100 Nasal Cannula 97.8 02/11/18 07:00 2.0 Lungs: Clear Cardiovascular: S1 Abdomen: Soft Neuro Exam: Alert Extremities: No Edema Skin: Warm Labs Laboratory Tests Test 02/11/18 05:20 02/12/18 07:35 Sodium Level 140 mmol/L (136-145) 139 mmol/L (136-145) Potassium Level 4.2 mmol/L (3.5-5.1) 4.6 mmol/L (3.5-5.1) Chloride Level 105 mmol/L (98-107) 105 mmol/L (98-107) Carbon Dioxide Level 23 mmol/L (21-32) 23 mmol/L (21-32) Anion Gap 12 (6-14) 11 (6-14) Blood Urea Nitrogen 35 mg/dL (8-26) 27 mg/dL (8-26) Creatinine 2.0 mg/dL (0.7-1.3) 1.6 mg/dL (0.7-1.3) Estimated GFR (Cockcroft-Gault) 34.7 44.9 Glucose Level 105 mg/dL (70-99) 104 mg/dL (70-99) Calcium Level 9.1 mg/dL (8.5-10.1) 8.8 mg/dL (8.5-10.1) White Blood Count 9.4 x10^3/uL (4.0-11.0) Red Blood Count 4.00 x10^6/uL (4.30-5.70) Hemoglobin 12.4 g/dL (13.0-17.5) Hematocrit 35.8 % (39.0-53.0) Mean Corpuscular Volume 89 fL (79-100) Mean Corpuscular Hemoglobin 31 pg (25-35) Mean Corpuscular Hemoglobin Concent 35 g/dL (31-37) Red Cell Distribution Width 14.2 % (11.5-14.5) Platelet Count 249 x10^3/uL (140-400) Neutrophils (%) (Auto) 65 % (31-73) Lymphocytes (%) (Auto) 18 % (24-48) Monocytes (%) (Auto) 12 % (0-9) Eosinophils (%) (Auto) 4 % (0-3) Basophils (%) (Auto) 1 % (0-3) Neutrophils # (Auto) 6.1 x10^3uL (1.8-7.7) Lymphocytes # (Auto) 1.7 x10^3/uL (1.0-4.8) Monocytes # (Auto) 1.1 x10^3/uL (0.0-1.1) Eosinophils # (Auto) 0.4 x10^3/uL (0.0-0.7) Basophils # (Auto) 0.1 x10^3/uL (0.0-0.2) Laboratory Tests Test 02/12/18 07:35 White Blood Count 9.4 x10^3/uL (4.0-11.0) Red Blood Count 4.00 x10^6/uL (4.30-5.70) Hemoglobin 12.4 g/dL (13.0-17.5) Hematocrit 35.8 % (39.0-53.0) Mean Corpuscular Volume 89 fL (79-100) Mean Corpuscular Hemoglobin 31 pg (25-35) Mean Corpuscular Hemoglobin Concent 35 g/dL (31-37) Red Cell Distribution Width 14.2 % (11.5-14.5) Platelet Count 249 x10^3/uL (140-400) Neutrophils (%) (Auto) 65 % (31-73) Lymphocytes (%) (Auto) 18 % (24-48) Monocytes (%) (Auto) 12 % (0-9) Eosinophils (%) (Auto) 4 % (0-3) Basophils (%) (Auto) 1 % (0-3) Neutrophils # (Auto) 6.1 x10^3uL (1.8-7.7) Lymphocytes # (Auto) 1.7 x10^3/uL (1.0-4.8) Monocytes # (Auto) 1.1 x10^3/uL (0.0-1.1) Eosinophils # (Auto) 0.4 x10^3/uL (0.0-0.7) Basophils # (Auto) 0.1 x10^3/uL (0.0-0.2) Sodium Level 139 mmol/L (136-145) Potassium Level 4.6 mmol/L (3.5-5.1) Chloride Level 105 mmol/L (98-107) Carbon Dioxide Level 23 mmol/L (21-32) Anion Gap 11 (6-14) Blood Urea Nitrogen 27 mg/dL (8-26) Creatinine 1.6 mg/dL (0.7-1.3) Estimated GFR (Cockcroft-Gault) 44.9 Glucose Level 104 mg/dL (70-99) Calcium Level 8.8 mg/dL (8.5-10.1) Impression . IMPRESSION: 1. Acute hypoxemic respiratory failure. 2. Right basal ganglia intraparenchymal hemorrhage. 3. Malignant hypertension. 4. Acute kidney injury. 5. Hyperlipidemia. 6. Hypothyroidism. 7. Clinical presentation compatible with obstructive sleep apnea. Plan . NOC DESAT FOLLOW NEURO INPUT RESP STATUS IS COMPENSATED WILL NEED A SLEEP STUDY OUT PT KELLIE MIRANDA MD Feb 12, 2018 09:14
[2018-02-12 11:00] VITALS: BP 139/84
--- NOTE | 2018-02-12 11:51 | PDOC ---
SUBJECTIVE ROS No new concerns OBJECTIVE Vital Signs Vital Signs Date Time Temp Pulse Resp B/P (MAP) Pulse Ox O2 Delivery O2 Flow Rate FiO2 02/12/18 08:44 60 121/77 02/12/18 08:00 Room Air 2.0 02/12/18 07:00 98.2 16 100 98.2 I & 0 Intake and Output 02/12/18 07:01 Intake Total 70 ml Balance 70 ml Intake Oral 50 ml Blood Product IV Normal Saline Flush 20 ml # Voids 1 PHYSICAL EXAM Physical Exam General: Alert, Oriented X3, No acute distress Heart: Regular rate, Normal S1, Normal S2 Lungs: Clear Abdomen: Normal bowel sounds, Obese Extremities: No edema Skin: Rash No stephens DIAGNOSIS/ASSESSMENT Assessment & Plan YOVANA vs CKD -improved , likely baseline BP dropped to 90's from 200+ systolic on admission Titrate BP meds to avoid Hypotension CKD stage 3- sec to HTN nephrosclerosis, Use of NSAID + Baseline 1.6-2 No e/o GN based on UA Renal US normal ,Lytes and acid base stable HTN - Admitted with very high BP BP dropped in 90's , currently at goal Lisinopril held Follow up with our office in 1-2 months (next available appt) after discharge Follow up with PCP COMMENT/RELEVANT DATA Meds Current Medications Medications (Trade) Dose Ordered Sig/Teresa Start Time Stop Time Status Last Admin Dose Admin Acetaminophen (Tylenol) 650 mg PRN Q6HRS PRN 02/06/18 19:30 02/08/18 16:21 650 MG Amlodipine Besylate (Norvasc) 5 mg 1X ONCE 02/06/18 12:30 02/06/18 12:31 DC 02/06/18 12:30 5 MG Carvedilol (Coreg) 6.25 mg BIDWMEALS 02/06/18 12:30 02/12/18 08:44 6.25 MG Cefdinir (Omnicef) 300 mg BIDWMEALS 02/10/18 17:00 02/12/18 08:43 300 MG Ceftriaxone Sodium (Rocephin) 1 gm Q24H 02/06/18 12:30 02/10/18 13:19 DC 02/10/18 12:20 1 GM Clonidine HCl (Catapres) 0.2 mg Q8HRS 02/10/18 14:00 02/12/18 05:48 0.2 MG Fentanyl Citrate (Fentanyl 2ml Vial) 50 mcg PRN Q1HR PRN 02/03/18 13:15 02/04/18 13:14 DC Labetalol HCl (Normodyne Iv Push) 20 mg PRN Q2HR PRN 02/04/18 13:45 02/04/18 13:46 DC Lactobacillus Rhamnosus (Culturelle) 1 cap BID 02/07/18 21:00 02/12/18 08:43 1 CAP Levothyroxine Sodium (Synthroid) 125 mcg DAILY06 02/06/18 12:30 02/12/18 05:48 125 MCG Lisinopril (Prinivil) 10 mg BID 02/09/18 21:00 02/11/18 16:11 DC 02/10/18 21:06 10 MG Metoprolol Succinate (Toprol Xl) 25 mg DAILY 02/03/18 22:30 02/06/18 12:07 DC 02/06/18 08:45 25 MG Nicardipine HCl 50 mg/Sodium Chloride 270 ml @ 27 mls/hr CONT PRN 02/03/18 12:30 02/06/18 12:13 DC 02/04/18 22:26 27 MLS/HR Ondansetron HCl (Zofran) 4 mg PRN Q8HRS PRN 02/03/18 13:15 02/04/18 13:14 DC Simvastatin (Zocor) 20 mg HS 02/04/18 21:00 02/11/18 21:00 20 MG Sodium Chloride 1,000 ml @ 75 mls/hr [id number] 02/11/18 11:00 02/11/18 21:01 75 MLS/HR Lab Laboratory Tests Test 02/12/18 07:35 White Blood Count 9.4 x10^3/uL (4.0-11.0) Red Blood Count 4.00 x10^6/uL (4.30-5.70) Hemoglobin 12.4 g/dL (13.0-17.5) Hematocrit 35.8 % (39.0-53.0) Mean Corpuscular Volume 89 fL (79-100) Mean Corpuscular Hemoglobin 31 pg (25-35) Mean Corpuscular Hemoglobin Concent 35 g/dL (31-37) Red Cell Distribution Width 14.2 % (11.5-14.5) Platelet Count 249 x10^3/uL (140-400) Neutrophils (%) (Auto) 65 % (31-73) Lymphocytes (%) (Auto) 18 % (24-48) Monocytes (%) (Auto) 12 % (0-9) Eosinophils (%) (Auto) 4 % (0-3) Basophils (%) (Auto) 1 % (0-3) Neutrophils # (Auto) 6.1 x10^3uL (1.8-7.7) Lymphocytes # (Auto) 1.7 x10^3/uL (1.0-4.8) Monocytes # (Auto) 1.1 x10^3/uL (0.0-1.1) Eosinophils # (Auto) 0.4 x10^3/uL (0.0-0.7) Basophils # (Auto) 0.1 x10^3/uL (0.0-0.2) Sodium Level 139 mmol/L (136-145) Potassium Level 4.6 mmol/L (3.5-5.1) Chloride Level 105 mmol/L (98-107) Carbon Dioxide Level 23 mmol/L (21-32) Anion Gap 11 (6-14) Blood Urea Nitrogen 27 mg/dL (8-26) Creatinine 1.6 mg/dL (0.7-1.3) Estimated GFR (Cockcroft-Gault) 44.9 Glucose Level 104 mg/dL (70-99) Calcium Level 8.8 mg/dL (8.5-10.1) Results All relevant outside records, renal labs, imaging studies, telemetry/EKG's were reviewed. ROGELIO ECHEVERRIA MD Feb 12, 2018 11:51
--- NOTE | 2018-02-12 12:14 | PDOC ---
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 seen and examined, spoke with nursing staff. Pt seems to be doing much better today. Pt had a CT scan this morning: . Educated pt on dietary H2O and Salt changes. Hope to D/c today. Vitals Vitals Vital Signs Date Time Temp Pulse Resp B/P (MAP) Pulse Ox O2 Delivery O2 Flow Rate FiO2 02/12/18 08:44 60 121/77 02/12/18 08:00 Room Air 2.0 02/12/18 07:00 98.2 16 100 98.2 Physical Exam General: Alert, Oriented X3, Cooperative, No acute distress Heart: Regular rate, Normal S1, Normal S2 Lungs: Clear Abdomen: Normal bowel sounds, Soft, No tenderness Extremities: No clubbing, No cyanosis Skin: No breakdown Labs LABS Laboratory Tests Test 02/12/18 07:35 White Blood Count 9.4 x10^3/uL (4.0-11.0) Red Blood Count 4.00 x10^6/uL (4.30-5.70) Hemoglobin 12.4 g/dL (13.0-17.5) Hematocrit 35.8 % (39.0-53.0) Mean Corpuscular Volume 89 fL (79-100) Mean Corpuscular Hemoglobin 31 pg (25-35) Mean Corpuscular Hemoglobin Concent 35 g/dL (31-37) Red Cell Distribution Width 14.2 % (11.5-14.5) Platelet Count 249 x10^3/uL (140-400) Neutrophils (%) (Auto) 65 % (31-73) Lymphocytes (%) (Auto) 18 % (24-48) Monocytes (%) (Auto) 12 % (0-9) Eosinophils (%) (Auto) 4 % (0-3) Basophils (%) (Auto) 1 % (0-3) Neutrophils # (Auto) 6.1 x10^3uL (1.8-7.7) Lymphocytes # (Auto) 1.7 x10^3/uL (1.0-4.8) Monocytes # (Auto) 1.1 x10^3/uL (0.0-1.1) Eosinophils # (Auto) 0.4 x10^3/uL (0.0-0.7) Basophils # (Auto) 0.1 x10^3/uL (0.0-0.2) Sodium Level 139 mmol/L (136-145) Potassium Level 4.6 mmol/L (3.5-5.1) Chloride Level 105 mmol/L (98-107) Carbon Dioxide Level 23 mmol/L (21-32) Anion Gap 11 (6-14) Blood Urea Nitrogen 27 mg/dL (8-26) Creatinine 1.6 mg/dL (0.7-1.3) Estimated GFR (Cockcroft-Gault) 44.9 Glucose Level 104 mg/dL (70-99) Calcium Level 8.8 mg/dL (8.5-10.1) Review of Systems Review of Systems Denies CP Denies SOB Denies N / V Assessment and Plan Assessmemt and Plan Assessment: 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 Labs Laboratory Tests Test 02/11/18 05:20 02/12/18 07:35 Sodium Level 140 mmol/L (136-145) 139 mmol/L (136-145) Potassium Level 4.2 mmol/L (3.5-5.1) 4.6 mmol/L (3.5-5.1) Chloride Level 105 mmol/L (98-107) 105 mmol/L (98-107) Carbon Dioxide Level 23 mmol/L (21-32) 23 mmol/L (21-32) Anion Gap 12 (6-14) 11 (6-14) Blood Urea Nitrogen 35 mg/dL (8-26) 27 mg/dL (8-26) Creatinine 2.0 mg/dL (0.7-1.3) 1.6 mg/dL (0.7-1.3) Estimated GFR (Cockcroft-Gault) 34.7 44.9 Glucose Level 105 mg/dL (70-99) 104 mg/dL (70-99) Calcium Level 9.1 mg/dL (8.5-10.1) 8.8 mg/dL (8.5-10.1) White Blood Count 9.4 x10^3/uL (4.0-11.0) Red Blood Count 4.00 x10^6/uL (4.30-5.70) Hemoglobin 12.4 g/dL (13.0-17.5) Hematocrit 35.8 % (39.0-53.0) Mean Corpuscular Volume 89 fL (79-100) Mean Corpuscular Hemoglobin 31 pg (25-35) Mean Corpuscular Hemoglobin Concent 35 g/dL (31-37) Red Cell Distribution Width 14.2 % (11.5-14.5) Platelet Count 249 x10^3/uL (140-400) Neutrophils (%) (Auto) 65 % (31-73) Lymphocytes (%) (Auto) 18 % (24-48) Monocytes (%) (Auto) 12 % (0-9) Eosinophils (%) (Auto) 4 % (0-3) Basophils (%) (Auto) 1 % (0-3) Neutrophils # (Auto) 6.1 x10^3uL (1.8-7.7) Lymphocytes # (Auto) 1.7 x10^3/uL (1.0-4.8) Monocytes # (Auto) 1.1 x10^3/uL (0.0-1.1) Eosinophils # (Auto) 0.4 x10^3/uL (0.0-0.7) Basophils # (Auto) 0.1 x10^3/uL (0.0-0.2) Laboratory Tests Test 02/12/18 07:35 White Blood Count 9.4 x10^3/uL (4.0-11.0) Red Blood Count 4.00 x10^6/uL (4.30-5.70) Hemoglobin 12.4 g/dL (13.0-17.5) Hematocrit 35.8 % (39.0-53.0) Mean Corpuscular Volume 89 fL (79-100) Mean Corpuscular Hemoglobin 31 pg (25-35) Mean Corpuscular Hemoglobin Concent 35 g/dL (31-37) Red Cell Distribution Width 14.2 % (11.5-14.5) Platelet Count 249 x10^3/uL (140-400) Neutrophils (%) (Auto) 65 % (31-73) Lymphocytes (%) (Auto) 18 % (24-48) Monocytes (%) (Auto) 12 % (0-9) Eosinophils (%) (Auto) 4 % (0-3) Basophils (%) (Auto) 1 % (0-3) Neutrophils # (Auto) 6.1 x10^3uL (1.8-7.7) Lymphocytes # (Auto) 1.7 x10^3/uL (1.0-4.8) Monocytes # (Auto) 1.1 x10^3/uL (0.0-1.1) Eosinophils # (Auto) 0.4 x10^3/uL (0.0-0.7) Basophils # (Auto) 0.1 x10^3/uL (0.0-0.2) Sodium Level 139 mmol/L (136-145) Potassium Level 4.6 mmol/L (3.5-5.1) Chloride Level 105 mmol/L (98-107) Carbon Dioxide Level 23 mmol/L (21-32) Anion Gap 11 (6-14) Blood Urea Nitrogen 27 mg/dL (8-26) Creatinine 1.6 mg/dL (0.7-1.3) Estimated GFR (Cockcroft-Gault) 44.9 Glucose Level 104 mg/dL (70-99) Calcium Level 8.8 mg/dL (8.5-10.1) Microbiology 02/06/18 Blood Culture - Final, Complete NO GROWTH AFTER 5 DAYS Medications Current Medications Labetalol HCl (Normodyne Iv Push) 20 mg 1X ONCE IVP Last administered on 02/03at 12:26; Start 02/03/18 at 12:15; Stop 02/03/18 at 12:16; Status DC Nicardipine HCl 50 mg/Sodium Chloride 270 ml @ 27 mls/hr CONT PRN IV SEE I/O RECORD Last administered on 02/04/18at 22:26; Start 02/03/18 at 12:30; Stop at 12:13; Status DC Ondansetron HCl (Zofran) 4 mg PRN Q8HRS PRN IV NAUSEA/VOMITING; Start at 13:15; Stop 02/04/18 at 13:14; Status DC Fentanyl Citrate (Fentanyl 2ml Vial) 50 mcg PRN Q1HR PRN IV PAIN; Start at 13:15; Stop 02/04/18 at 13:14; Status DC Metoprolol Succinate (Toprol Xl) 25 mg DAILY PO Last administered on at 08:45; Start 02/03/18 at 22:30; Stop 02/06/18 at 12:07; Status DC Simvastatin (Zocor) 20 mg HS PO Last administered on 02/11/18at 21:00; Start 02/04/18 at 21:00 Labetalol HCl (Normodyne Iv Push) 20 mg PRN Q2HR PRN IVP HYPERTENSION, SEE COMMENTS Last administered on 02/08/18at 23:23; Start 02/04/18 at 13:15 Labetalol HCl (Normodyne Iv Push) 20 mg PRN Q2HR PRN IVP HYPERTENSION, SEE COMMENTS; Start 02/04/18 at 13:45; Stop 02/04/18 at 13:46; Status DC Amlodipine Besylate (Norvasc) 5 mg DAILY PO Last administered on 02/06/18at 08: 45; Start 02/04/18 at 18:00; Stop 02/06/18 at 12:07; Status DC Ceftriaxone Sodium (Rocephin) 1 gm Q24H IVP Last administered on 02/10/18at 12: 20; Start 02/06/18 at 12:30; Stop 02/10/18 at 13:19; Status DC Amlodipine Besylate (Norvasc) 10 mg DAILY PO Last administered on 02/12/18at 08 :43; Start 02/07/18 at 09:00 Carvedilol (Coreg) 6.25 mg BIDWMEALS PO Last administered on 02/12/18at 08:44; Start 02/06/18 at 12:30 Amlodipine Besylate (Norvasc) 5 mg 1X ONCE PO Last administered on 02/06/18at 12:30; Start 02/06/18 at 12:30; Stop 02/06/18 at 12:31; Status DC Levothyroxine Sodium (Synthroid) 125 mcg DAILY06 PO Last administered on at 05:48; Start 02/06/18 at 12:30 Lisinopril (Prinivil) 5 mg BID PO Last administered on 02/09/18at 08:13; Start 02/06/18 at 14:30; Stop 02/09/18 at 11:06; Status DC Acetaminophen (Tylenol) 650 mg PRN Q6HRS PRN PO MILD PAIN / TEMP Last administered on 02/08/18at 16:21; Start 02/06/18 at 19:30 Lactobacillus Rhamnosus (Culturelle) 1 cap BID PO Last administered on at 08:43; Start 02/07/18 at 21:00 Lisinopril (Prinivil) 10 mg BID PO Last administered on 02/10/18at 21:06; Start 02/09/18 at 21:00; Stop 02/11/18 at 16:11; Status DC Clonidine HCl (Catapres) 0.1 mg Q8HRS PO Last administered on 02/10/18at 06:36 ; Start 02/09/18 at 14:00; Stop 02/10/18 at 10:25; Status DC Clonidine HCl (Catapres) 0.2 mg Q8HRS PO Last administered on 02/12/18at 05:48 ; Start 02/10/18 at 14:00 Cefdinir (Omnicef) 300 mg BIDWMEALS PO Last administered on 02/12/18 08:43; Start 02/10/18 at 17:00 Sodium Chloride 1,000 ml @ 75 mls/hr [id number] IV Last administered on at 21:01; Start 02/11/18 at 11:00 Vitals/I & O Vital Sign - Last 24 Hours 02/11/18 02/11/18 02/11/18 02/11/18 14:00 15:00 17:03 18:41 Temp 97.4 98.1 97.4 98.1 Pulse 62 67 67 63 Resp 18 18 B/P (MAP) 129/76 138/78 (98) 138/78 150/82 (104) Pulse Ox 97 100 O2 Delivery Nasal Cannula Nasal Cannula 02/11/18 02/11/18 02/11/18 02/12/18 20:00 21:01 23:00 03:00 Temp 98.1 97.8 98.1 97.8 Pulse 63 66 60 Resp 18 18 B/P (MAP) 150/82 150/80 (103) 117/72 (87) Pulse Ox 100 100 O2 Delivery Room Air Nasal Cannula Nasal Cannula 02/12/18 02/12/18 02/12/18 02/12/18 05:48 07:00 08:00 08:43 Temp 98.2 98.2 Pulse 60 55 60 Resp 16 B/P (MAP) 117/72 103/56 (72) 121/77 Pulse Ox 100 O2 Delivery Room Air Room Air O2 Flow Rate 2.0 02/12/18 08:44 Pulse 60 B/P (MAP) 121/77 Intake and Output 02/11/18 02/11/18 02/12/18 15:01 23:01 07:01 Intake Total 70 ml Balance 70 ml STANISLAW ARCHER III DO Feb 12, 2018 12:14
[2018-02-12] MEDS: IV NORMAL SALINE 1000ML BAG 1,000 ML IV SCH (13:40)
[2018-02-12 17:04] VITALS: BP 132/71
== END 2018-02-12 18:00 | disposition home or self-care (01) | DRG 64 ==
LOC: ER 11:35 → 1 WEST ICU 13:00 → 4 NORTH 02-05 19:07
PROVIDERS: ADMIT Family Medicine; ATTEND Family Medicine
DX: I61.0 Nontraumatic intracerebral hemorrhage in hemisphere, subcortical (principal); G93.6 Cerebral edema; G93.41 Metabolic encephalopathy; J96.01 Acute respiratory failure with hypoxia; I16.1 Hypertensive emergency; N17.9 Acute kidney failure, unspecified; E03.9 Hypothyroidism, unspecified; E78.5 Hyperlipidemia, unspecified; G47.33 Obstructive sleep apnea (adult) (pediatric); I12.9 Hypertensive chronic kidney disease with stage 1 through stage 4 chronic kidney disease, or unspecified chronic kidney disease; M10.9 Gout, unspecified; N18.3 Chronic kidney disease, stage 3 (moderate); W22.01XA Walked into wall, initial encounter; E66.01 Morbid (severe) obesity due to excess calories; Z82.49 Family history of ischemic heart disease and other diseases of the circulatory system; Y93.89 Activity, other specified; Y92.89 Other specified places as the place of occurrence of the external cause; Y99.8 Other external cause status
CPT/HCPCS: 36415; 70450; 71045; 76770; 80048; 80053; 80061; 80307; 81001; 82962; 83605; 83735; 84439; 84443; 84481; 84484; 85025; 85027; 85610; 85730; 87040; 87641; 93005; 93306; 94799; 96374; G0480; J0696; J3490; J7030; J7050; 92507; 92522; 92526; 92610; 97110; 97112; 97116; 97530; 97535; 99285-25